=== PATIENT | female | born 1950 | race Caucasian/White ===

== ENCOUNTER → 2016-03-20 | Outpatient (CLI) | payer MEDICARE ==
[2016-03-20 12:12] VITALS: BP 133/85; PULSE 52; RESP 20; TEMP 98
[2016-03-20 12:54] VITALS: BMI 30.3
--- NOTE | 2016-03-30 15:14 | P.PN ---
Progress Note - Text DATE OF SERVICE: 03/20/2016 CHIEF COMPLAINT: Followup gastric bypass. HISTORY OF PRESENT ILLNESS: Eboni Otoole is a 65-year-old female who is status post Susana-en-Y gastric bypass on April 24, 2014. Her highest weight was 323 pounds. Her present weight is her lowest weight at 205 pounds. She has actually lost 118 pounds in 2 years ago. Percent excess weight loss is 76%. Body mass index has been reduced from 48.5 to 30.8. Total BMI point reduction is 17.7. She is barely 37 pounds overweight. She does have a history of a perforated gastrojejunal ulcer a year ago, whereby she had emergent surgical intervention. Since then she has been on high doses of Carafate, including omeprazole. Separately she reports slowly weaning herself off her diabetic medications, whereby at times she may have lows. Her blood sugars have been maintained under 100. Now she presents for further evaluation and management. PAST MEDICAL HISTORY: 1. Morbid obesity. 2. Diabetes type 2. 3. Gastroesophageal reflux disease. 4. Hypertension. 5. Dyslipidemia. 6. Osteoarthritis. 7. Panniculitis. 8. Diverticulosis 9. Perforated gastrojejunal ulcer with exploration. PAST SURGICAL HISTORY: 1. Colonoscopy. 2. Left knee replacement. 3. . 4. Upper endoscopy with balloon dilatation. 5. Status post Susana-en-Y gastric bypass. 6. Perforated gastrojejunal ulcer with open exploration. MEDICATIONS: 1. Zinc. 2. Vitamin D. 3. Calcium. 4. Prilosec. 5. Multivitamin. 6. Metoprolol. 7. HydroDIURIL. 8. Repaglinide. 9. Carafate. 10. Zocor. 11. Levemir. ALLERGIES: Denies. SOCIAL HISTORY: Lifelong nontobacco user. FAMILY HISTORY: Pertinent for colon cancer in an uncle. Denies any stomach or esophageal cancer. REVIEW OF SYSTEMS: ENDOCRINE: Resolved diabetes, type 2. She has actually been discontinuing her insulin slowly. RESPIRATORY: Resolved obstructive sleep apnea. GASTROINTESTINAL: No reports of gastroesophageal reflux disease or dumping syndrome. CONSTITUTIONAL: Heaviest weight of 323 pounds. Total percent excess weight loss of 58%. Present weight loss of 93 pounds. Body mass index reduced from 49 down to 34.5. BMI reduction of 14.5. CARDIOVASCULAR: Decreased blood pressure medications including dosage. MUSCULOSKELETAL: Moderate improvement of lower back, including bilateral knee pain. HEENT: Denies any troubles with vision or hearing. NEURO: No reports of seizure disorders or stroke. PSYCH: Denies any depression or suicidal ideation. HEMATOLOGIC: Denies any easy bruising or bleeding. PHYSICAL EXAM: VITAL SIGNS: 98.0, 52, 20, 133/85, 5 feet 8-1/2 inches, 205 pounds. Body mass index of 30.3. GENERAL: Well-developed female in no acute distress. ABDOMEN: No palpable incisional hernias. Soft, nontender, nondistended. MUSCULOSKELETAL: No clubbing, cyanosis or edema. HEENT: No sclera icterus. Extraocular movements grossly intact. Moist buccal mucosa. Head is atraumatic, normocephalic. Hears conversational speech. No nasal drainage. NECK: Supple without lymphadenopathy. No JV distention. CHEST: Non-labored respirations and equal bilateral excursions. CARDIOVASCULAR: Regular rate and rhythm. Palpable 2+ radial pulses. NEUROLOGIC: No focal or lateralizing signs. PSYCH: Appropriate affect. Alert and oriented to person, place and time. LABS: Previous labs demonstrate hemoglobin 12.5. Carbon dioxide was elevated at 35. Glucose was elevated at 108. Hemoglobin A1c has improved from 8.8 down to 5.6. Total iron-binding capacity was low at 264, ALT and AST were 45 and 63 elevated, respectively. Vitamin A was low at 36. Vitamin B12 was elevated at 936. Thyroid-stimulating hormones were within normal limits. ASSESSMENT: 1. Morbid obesity due to excess calories. 2. Body mass index reduced from 48.9 to 30.3. 3. Status post Susana-en-Y gastric bypass. 4. History of diabetes, type 2, now resolved. 5. History of obstructive sleep apnea, now resolved. 6. Previous history of gastroesophageal reflux disease, now resolved. 7. Hypertensive heart disease, improved. 8. Obstructive sleep apnea, improved. 9. Prior history of gastrojejunal stricture, resolved. 10. Osteoarthritis of the lower back, improved. 11. Osteoarthritis bilateral knees, improved. PLAN: 1. I have recommended repeat upper endoscopy, given the severity of her perforated gastrojejunal ulcer this will help to actually determine whether she needs to continue with her Carafate versus Nexium. 2. As she has had labs in the past 2 to 3 months, repeat labs were advised. 3. Her hemoglobin A1c has been exceptional, and she is still taking multiple diabetic medications with low blood sugars. I have recommended weaning or discontinuing these medications. This puts her at risk for hypoglycemic events. 4. She has previous history of vitamin A and D deficiency and has been placed on a new medication per her primary care provider. It will be interesting to see how her vitamin A also improves. 5. Recommend followup in approximately 3 to 4 weeks.
== END | disposition home or self-care (01) ==
LOC: BARWHC3 11:13
PROVIDERS: ATTEND Surgery Plastic and Reconstructive Surgery
DX: Z48.815 Encounter for surgical aftercare following surgery on the digestive system (principal); Z98.84 Bariatric surgery status; Z71.3 Dietary counseling and surveillance; Z79.899 Other long term (current) drug therapy; E66.01 Morbid (severe) obesity due to excess calories; Z68.30 Body mass index [BMI] 30.0-30.9, adult; I11.9 Hypertensive heart disease without heart failure; G47.33 Obstructive sleep apnea (adult) (pediatric); M47.896 Other spondylosis, lumbar region; M17.0 Bilateral primary osteoarthritis of knee; E21.1 Secondary hyperparathyroidism, not elsewhere classified; D50.8 Other iron deficiency anemias; E44.0 Moderate protein-calorie malnutrition; E55.9 Vitamin D deficiency, unspecified; K74.1 Hepatic sclerosis; N19 Unspecified kidney failure; K50.90 Crohn's disease, unspecified, without complications
CPT/HCPCS: 97803; G0463; 99211

== ENCOUNTER → 2016-04-03 | Outpatient (CLI) | payer MEDICARE ==
[2016-04-03 11:10] LABS: Partial Thromboplastin Time 23.5 sec (22.0-30.0); Prothrombin Time 10.5 sec (9.0-12.0)
[2016-04-03 11:13] LABS: Basophils % (A) 1 %; CH 30.2; CHCM 33.7; Eosinophils # (A) 0.1 k/uL (0-0.7); Eosinophils % (A) 2 %; HCT 41.1 % (34.0-46.0); HGB 13.3 gm/dL (11.4-16.0); Luc # (Auto) 0.13; Luc % (Auto) 3; Lymphocytes # (A) 1.3 k/uL (1.0-4.8); Lymphocytes % (A) 26 %; MCH 29.1 pg (25.0-35.0); MCHC 32.3 g/dL (31.0-37.0); MCV 89.9 fL (80.0-100.0); Mean Platelet Volume 6.7; Monocytes # (A) 0.3 k/uL (0-1.0); Monocytes % (A) 6 %; Neutrophils # (A) 3.1 k/uL (1.3-7.7); Neutrophils % (A) 63 %; RBC 4.57 m/uL (3.80-5.40); RDW 12.8 % (11.5-15.5); WBC 4.9 k/uL (3.8-10.6); WBC (Perox) 4.85
[2016-04-03 12:38] LABS: Appearance,Urine Clear (Clear); Bilirubin,Urine Negative (Negative); Glucose,Urine (UA) Negative (Negative); Ketones,Urine Negative (Negative); Leukocyte Esterase,Urine Negative (Negative); Nitrite,Urine Negative (Negative); PH, Urine 5.5 (5.0-8.0); Protein,Urine Negative (Negative); Specific Gravity,Urine 1.022 (1.001-1.035); UA Billing (MACRO vs. MICRO) CHEM; Urobilinogen,Urine <2.0 mg/dL (<2.0)
[2016-04-03 12:39] LABS: ALT 64 U/L (9-52); AST 45 U/L (14-36); Alkaline Phosphatase 86 U/L (38-126); Anion Gap 8 mmol/L; Blood Urea Nitrogen 20 mg/dL (7-17); Calcium 9.6 mg/dL (8.4-10.2); Carbon Dioxide 32 mmol/L (22-30); Chloride 103 mmol/L (98-107); Cholesterol 153 mg/dL (<200); Glucose 127 mg/dL (74-99); HDL Cholesterol 63 mg/dL (40-60); Iron 106 ug/dL (37-170); Non-African American GFR(MDRD) >60 (>60 ml/min/1.73 sqM); Phosphorous 4.4 mg/dL (2.5-4.5); Sodium 143 mmol/L (137-145); Total Bilirubin 0.8 mg/dL (0.2-1.3); Total Protein 6.6 g/dL (6.3-8.2); Triglycerides 82 mg/dL (<150)
[2016-04-03 12:50] LABS: % Iron Saturation 38.1 % (20-50); Prealbumin 22 mg/dL (18-36); Total Iron Binding Capacity 278 ug/dL (265-497)
[2016-04-03 13:56] LABS: Vitamin B12 >1000 pg/mL (239-931)
[2016-04-07 06:58] LABS: Methylmalonic Acid 0.14 umol/L (<0.40)
== END | disposition home or self-care (01) ==
LOC: LABWHC1 10:15
PROVIDERS: ATTEND Family Medicine
DX: E66.01 Morbid (severe) obesity due to excess calories (principal); E21.1 Secondary hyperparathyroidism, not elsewhere classified; D50.8 Other iron deficiency anemias; K90.89 Other intestinal malabsorption; E44.0 Moderate protein-calorie malnutrition; E55.9 Vitamin D deficiency, unspecified; K74.1 Hepatic sclerosis; N19 Unspecified kidney failure; K50.90 Crohn's disease, unspecified, without complications
CPT/HCPCS: 36415; 80053; 80061; 81003; 82043; 82306; 82525; 82607; 82728; 82746; 83036; 83540; 83550; 83735; 83921; 83970; 84100; 84134; 84255; 84425; 84439; 84443; 84590; 84630; 85025; 85610; 85730

== ENCOUNTER 2016-04-09 07:28 | Day surgery (SDC) | payer MEDICARE ==
[2016-04-04 10:37] VITALS: BMI 28.0
[~2016-04-09 07:28] MED LIST: LACTATED RINGERS 1,000 ML IV SCH
--- NOTE | 2016-04-09 07:40 | P.GSHP ---
History of Present Illness H&P Date: 04/09/16 CHIEF COMPLAINT: GERD HISTORY OF PRESENT ILLNESS: The patient is a 65-year-old female who presents reports gastroesophageal reflux disease. Upper endoscopy was offered for further evaluation and management. PAST MEDICAL HISTORY: Please see list. PAST SURGICAL HISTORY: Please see list. MEDICATIONS: Please see list. ALLERGIES: Please see list. SOCIAL HISTORY: No illicit drug use FAMILY HISTORY: No reports of Crohn disease or ulcerative colitis. REVIEW OF ORGAN SYSTEMS: CONSTITUTIONAL: No reports of fevers or chills. GI: Denies any blood in stools or constipation. PHYSICAL EXAM: VITAL SIGNS: Stable GENERAL: Well-developed and pleasant in no acute distress. HEENT: No scleral icterus. Extraocular movements grossly intact. Moist buccal mucosa. NECK: Supple without lymphadenopathy. CHEST: Unlabored respirations. Equal bilateral excursions. CARDIOVASCULAR: Regular rate and rhythm. Distal 2+ pulses. ABDOMEN: Soft, nondistended. MUSCULOSKELETAL: No clubbing, cyanosis, or edema. ASSESSMENT: 1. Gastroesophageal reflux disease PLAN: 1. Recommend proceeding with an upper endoscopy Past Medical History Past Medical History: GERD/Reflux, Hyperlipidemia, Hypertension, Osteoarthritis (OA) Additional Past Medical History / Comment(s): PREV HX OF SLEEP APNEA, NO LONGER NEEDS CPAP, PREVIOUS HX OF DIABETES, NO LONGER NEEDING MEDS R/T 140LB WT LOSS. HX OF ULCER History of Any Multi-Drug Resistant Organisms: None Reported Past Surgical History: Bariatric Surgery, Bowel Resection, Section, Cholecystectomy, Joint Replacement Additional Past Surgical History / Comment(s): Left knee replacement, EGD, BILATERAL CATARACT SURGERY, BREAST BX (PT UNSURE OF SIDE),3 PRCEIOUS-EN-Y, bowel resection 04/12/15, feeding tube replaced 04/13/15, G TUBE REMOVED Past Anesthesia/Blood Transfusion Reactions: No Reported Reaction Past Psychological History: No Psychological Hx Reported Smoking Status: Never smoker Past Alcohol Use History: None Reported Past Drug Use History: None Reported - Past Family History Mother Family Medical History: Cancer Father Family Medical History: Cancer Additional Family Medical History / Comment(s): PANCREATIC Medications and Allergies Home Medications Medication Instructions Recorded Confirmed Type Cholecalciferol [Vitamin D3] 10,000 unit PO DAILY 11/02/13 04/09/16 History Hydrochlorothiazide [Hydrodiuril] 25 mg PO DAILY 11/02/13 04/09/16 History Metoprolol Succinate [Toprol XL] 50 mg PO QAM 11/02/13 04/09/16 History Calcium Carbonate [Calcium] 18,000 mg PO DAILY 08/17/14 04/09/16 History Multivitamins, Thera [Multivitamin] 1 tab PO DAILY 08/17/14 04/09/16 History Vitamin A 10,000 unit PO DAILY 04/04/16 04/09/16 History Allergies Allergy/AdvReac Type Severity Reaction Status Date / Time No Known Allergies Allergy Verified 04/09/16 07:36
[2016-04-09] MEDS ORDERED: LIDOCAINE 1% 20 ML VIAL (10MG/ML) FOR IV START INTRADERMA ONE (07:44)
[2016-04-09 07:45] VITALS: TEMP 97.6
[2016-04-09] MEDS ORDERED: PROPOFOL 10 MG/ML 20 ML VIAL IV ONE (07:48)
[2016-04-09 07:58] LABS: Glucose,Whole Blood 98 mg/dL (75-99)
--- NOTE | 2016-04-09 07:59 | P.PCN ---
Date of Procedure: 04/09/16 Description of Procedure: PREOPERATIVE DIAGNOSIS: History of gastrojejunal ulcer with perforation. POSTOPERATIVE DIAGNOSIS: History of gastrojejunal ulcer with perforation. OPERATION: Esophagogastrojejunoscopy. SURGEON: Meagan Quintana MD ANESTHESIA: MAC. INDICATIONS: The patient is a 65-year-old female who has previous history of perforated gastrojejunal ulceration. She now presents for follow-up. Benefits and risks of the procedure were described. Informed consent was obtained. DESCRIPTION: The patient was brought into the endoscopy suite and laid in the left lateral decubitus position. After a timeout was confirmed, the procedure was initiated. An Olympus gastroscope was passed along the posterior oropharynx down to the distal esophagus where the squamocolumnar junction was unremarkable. The gastric pouch was entered. No gastric jejunal stricture ulcer was identified. The scope was advanced up to 60 cm from the incisors into the Susana limb. The gastric pouch was 3 cm in length. The GI tract was desufflated. The patient tolerated the procedure well. FINDINGS: Squamocolumnar junction unremarkable at 40 cm. No stricture encountered. No gastrojejunal ulceration encountered. Gastrojejunal anastomose 44 cm from the incisors. Gastric pouch 4 cm. RECOMMENDATIONS: May continue with current treatment with omeprazole only.
[2016-04-09 08:06] VITALS: RESP 16
[2016-04-09 08:18] VITALS: BP 112/71; PULSE 52
== END 2016-04-09 08:37 | disposition home or self-care (01) ==
LOC: ORWHC2ENDO 07:28
PROVIDERS: ATTEND Surgery Plastic and Reconstructive Surgery
DX: K21.9 Gastro-esophageal reflux disease without esophagitis (principal); I10 Essential (primary) hypertension; E78.5 Hyperlipidemia, unspecified; E11.9 Type 2 diabetes mellitus without complications; Z79.899 Other long term (current) drug therapy; Z87.11 Personal history of peptic ulcer disease; Z98.84 Bariatric surgery status; Z90.49 Acquired absence of other specified parts of digestive tract
CPT/HCPCS: 43235; J2704

== ENCOUNTER → 2016-04-30 | Outpatient (CLI) | payer MEDICARE ==
[2016-04-30 14:00] VITALS: BP 158/83; PULSE 59; TEMP 97.8; BMI 31.0
--- NOTE | 2016-06-04 16:48 | P.PN ---
Progress Note - Text DATE OF SERVICE: 04/30/2016 CHIEF COMPLAINT: Follow-up gastric bypass. HISTORY OF PRESENT ILLNESS: Eboni Otoole is a 65-year-old female status post Susana-en-Y gastric bypass 2 years ago on April 24, 2014. Her highest weight was 323 pounds. She is now down to 207 pounds. Her weight has been essentially unchanged in the past year. Percent excess weight loss is 73%. She has maintained 116-pound weight loss. Body mass index is reduced from 48.5 down to 31. Total BMI point reduction is 17.5. She is only 44 pounds overweight. She has done extremely well. Now she is off all medications related to her insulin-dependent diabetes. She still taking omeprazole for history of gastrojejunal ulcer with perforation over a year ago. She is now off Carafate. She reports moderate stress in her life at this time. PAST MEDICAL HISTORY: 1. Morbid obesity. 2. Insulin-dependent diabetes type 2, now resolved. 3. Gastroesophageal reflux disease. 4. Hypertension. 5. Dyslipidemia. 6. Osteoarthritis. 7. Panniculitis. 8. Diverticulosis 9. Perforated gastrojejunal ulcer with exploration. PAST SURGICAL HISTORY: 1. Colonoscopy. 2. Left knee replacement. 3. . 4. Upper endoscopy with balloon dilatation. 5. Status post Susana-en-Y gastric bypass. 6. Perforated gastrojejunal ulcer with open exploration. MEDICATIONS: 1. Zinc. 2. Vitamin A. 3. Zocor. 4. Omeprazole. 5. Multivitamin. 6. Toprol-XL. 7. HydroDIURIL. 8. Vitamin D. 9. Calcium. 10. Xanax. ALLERGIES: Denies. SOCIAL HISTORY: Lifelong nontobacco user. FAMILY HISTORY: Pertinent for colon cancer in an uncle. Denies any stomach or esophageal cancer. REVIEW OF SYSTEMS: ENDOCRINE: Complete resolution of insulin-dependent diabetes type 2. No reports of thyroid disorders. GASTROINTESTINAL: Previous perforated gastrojejunal ulcer. Now she is maintained on omeprazole only. RESPIRATORY: Resolved obstructive sleep apnea. CONSTITUTIONAL: . Her highest weight was 323 pounds. She is now down to 207 pounds. Her weight has been essentially unchanged in the past year. Percent excess weight loss is 73%. She has maintained 116-pound weight loss. Body mass index is reduced from 48.5 down to 31. Total BMI point reduction is 17.5. She is only 44 pounds overweight. CARDIOVASCULAR: Decreased blood pressure medications including dosage. MUSCULOSKELETAL: Moderate improvement of lower back, including bilateral knee pain. HEENT: Denies any troubles with vision or hearing. NEURO: No reports of seizure disorders or stroke. PSYCH: Denies any depression or suicidal ideation. HEMATOLOGIC: Denies any easy bruising or bleeding. PHYSICAL EXAM: VITAL SIGNS: 97.8, 59, 14, 158/83, 5 feet 8-1/2 inches, 207 pounds. Body mass index 31.0. Body mass index of 30.3. GENERAL: Well-developed female in no acute distress. ABDOMEN: No palpable incisional hernias. Soft, nontender, nondistended. MUSCULOSKELETAL: No clubbing, cyanosis or edema. HEENT: No sclera icterus. Extraocular movements grossly intact. Moist buccal mucosa. Head is atraumatic, normocephalic. Hears conversational speech. No nasal drainage. NECK: Supple without lymphadenopathy. No JV distention. CHEST: Non-labored respirations and equal bilateral excursions. CARDIOVASCULAR: Regular rate and rhythm. Palpable 2+ radial pulses. NEUROLOGIC: No focal or lateralizing signs. PSYCH: Appropriate affect. Alert and oriented to person, place and time. STUDIES: Upper endoscopy completed demonstrating no recurrent gastrojejunal ulcer. No stricture was encountered. Squamocolumnar junction was confirmed 40 cm. Gastric pouch 4 cm. ASSESSMENT: 1. Morbid obesity due to excess calories, now resolved. 2. Body mass index reduced from 48.5 down to 31. 3. Status post Susana-en-Y gastric bypass. 4. Insulin-dependent diabetes type 2, resolved. 5. History of obstructive sleep apnea, now resolved. 6. Previous history of gastroesophageal reflux disease, now resolved. 7. Hypertensive heart disease, improved. 8. Obstructive sleep apnea, improved. 9. Prior history of gastrojejunal stricture, resolved. 10. Osteoarthritis of the lower back, improved. 11. Osteoarthritis bilateral knees, improved. 12. Obesity, BMI 31. PLAN: 1. Overall, she has done well. In the past she was taking Carafate and omeprazole; however, she has been discontinued off Carafate for a month. She can be maintained on omeprazole 40 mg daily. 2. Her blood sugar glucose has been well controlled. Previous labs including hemoglobin A1c was within normal limits at 6. Again, she has discontinued her insulin. 3. She has moderate stress in her life which may induce stress eating, which was also discussed. 4. Overall, recommend a follow-up at least on [facility] basis [facility] or any time sooner should she have any problems with abdominal pain or weight gain.
== END | disposition home or self-care (01) ==
LOC: BARWHC3 13:21
PROVIDERS: ATTEND Surgery Plastic and Reconstructive Surgery
DX: Z48.815 Encounter for surgical aftercare following surgery on the digestive system (principal); E66.9 Obesity, unspecified; Z68.31 Body mass index [BMI] 31.0-31.9, adult; Z71.3 Dietary counseling and surveillance; I11.9 Hypertensive heart disease without heart failure; G47.33 Obstructive sleep apnea (adult) (pediatric); M47.896 Other spondylosis, lumbar region; M17.0 Bilateral primary osteoarthritis of knee; Z98.84 Bariatric surgery status; Z79.899 Other long term (current) drug therapy; Z96.652 Presence of left artificial knee joint; K21.9 Gastro-esophageal reflux disease without esophagitis
CPT/HCPCS: 97803; G0463; 99211

== ENCOUNTER → 2016-09-09 | Outpatient (CLI) | payer MEDICARE ==
[2016-09-09 11:32] LABS: Basophils % (A) 0 %; CHCM 34.4; Eosinophils # (A) 0.1 k/uL (0-0.7); Eosinophils % (A) 3 %; HDW 2.86; HGB 13.7 gm/dL (11.4-16.0); Luc % (Auto) 2; Lymphocytes # (A) 1.1 k/uL (1.0-4.8); Lymphocytes % (A) 25 %; MCHC 34.3 g/dL (31.0-37.0); MCV 87.4 fL (80.0-100.0); Monocytes # (A) 0.3 k/uL (0-1.0); Monocytes % (A) 7 %; Neutrophils # (A) 2.8 k/uL (1.3-7.7); Neutrophils % (A) 63 %; RBC 4.58 m/uL (3.80-5.40); RDW 12.6 % (11.5-15.5); WBC 4.4 k/uL (3.8-10.6); WBC (Perox) 4.67
[2016-09-09 11:56] LABS: ALT 38 U/L (9-52); AST 29 U/L (14-36); Alkaline Phosphatase 97 U/L (38-126); Anion Gap 9 mmol/L; Blood Urea Nitrogen 20 mg/dL (7-17); Calcium 9.5 mg/dL (8.4-10.2); Carbon Dioxide 31 mmol/L (22-30); Chloride 103 mmol/L (98-107); Glucose 144 mg/dL (74-99); Iron 124 ug/dL (37-170); Non-African American GFR(MDRD) >60 (>60 ml/min/1.73 sqM); Sodium 143 mmol/L (137-145); Total Bilirubin 0.9 mg/dL (0.2-1.3); Total Protein 6.3 g/dL (6.3-8.2)
[2016-09-09 12:07] LABS: % Iron Saturation 45.4 % (20-50); Prealbumin 21 mg/dL (18-36); Total Iron Binding Capacity 273 ug/dL (265-497)
[2016-09-09 12:43] LABS: Vitamin B12 980 pg/mL (239-931)
[2016-09-09 15:25] LABS: Hemoglobin A1C 6.6 % (4.2-6.1)
[2016-09-12 14:20] LABS: Selenium 152 mcg/L (63-160)
== END | disposition home or self-care (01) ==
LOC: LABWHC1 11:03
PROVIDERS: ATTEND Family Medicine
DX: D50.9 Iron deficiency anemia, unspecified (principal); E11.9 Type 2 diabetes mellitus without complications
CPT/HCPCS: 36415; 80053; 82306; 82607; 83036; 83540; 83550; 84134; 84255; 84439; 84443; 84590; 85025

== ENCOUNTER → 2017-01-05 | Outpatient (CLI) | payer MEDICARE ==
[2017-01-05 10:34] LABS: Basophils % (A) 1 %; CHCM 34.1; Eosinophils # (A) 0.1 k/uL (0-0.7); Eosinophils % (A) 3 %; HCT 39.9 % (34.0-46.0); HDW 2.85; HGB 13.2 gm/dL (11.4-16.0); Luc # (Auto) 0.13; Luc % (Auto) 3; Lymphocytes # (A) 1.1 k/uL (1.0-4.8); Lymphocytes % (A) 26 %; MCH 29.2 pg (25.0-35.0); MCHC 33.1 g/dL (31.0-37.0); MCV 88.3 fL (80.0-100.0); Mean Platelet Volume 6.7; Monocytes # (A) 0.3 k/uL (0-1.0); Monocytes % (A) 7 %; Neutrophils # (A) 2.6 k/uL (1.3-7.7); Neutrophils % (A) 60 %; RBC 4.51 m/uL (3.80-5.40); RDW 12.2 % (11.5-15.5); WBC 4.3 k/uL (3.8-10.6); WBC (Perox) 4.38
[2017-01-05 10:58] LABS: ALT 48 U/L (9-52); AST 34 U/L (14-36); Alkaline Phosphatase 99 U/L (38-126); Anion Gap 8 mmol/L; Blood Urea Nitrogen 19 mg/dL (7-17); Calcium 9.8 mg/dL (8.4-10.2); Carbon Dioxide 31 mmol/L (22-30); Chloride 103 mmol/L (98-107); Cholesterol 160 mg/dL (<200); Creatine Kinase 64 U/L (30-135); Glucose 154 mg/dL (74-99); HDL Cholesterol 63 mg/dL (40-60); Magnesium 1.9 mg/dL (1.6-2.3); Non-African American GFR(MDRD) >60 (>60 ml/min/1.73 sqM); Sodium 142 mmol/L (137-145); Total Bilirubin 0.8 mg/dL (0.2-1.3); Total Protein 6.7 g/dL (6.3-8.2)
[2017-01-05 18:50] LABS: Urine Creatinine 173.2 mg/dL
[2017-01-07 20:00] LABS: Selenium 136 mcg/L (63-160)
== END | disposition home or self-care (01) ==
LOC: LABWHC1 09:40
PROVIDERS: ATTEND Family Medicine
DX: E11.65 Type 2 diabetes mellitus with hyperglycemia (principal); E78.5 Hyperlipidemia, unspecified; I10 Essential (primary) hypertension; Z98.84 Bariatric surgery status
CPT/HCPCS: 36415; 80053; 80061; 82043; 82306; 82525; 82550; 82570; 82607; 83036; 83735; 84134; 84255; 84439; 84443; 84590; 85025

== ENCOUNTER → 2017-04-29 | Outpatient (CLI) | payer MEDICARE ==
[2017-04-29 14:37] VITALS: BP 137/76; PULSE 60; RESP 16; TEMP 97.9; BMI 32.6
[2017-04-29 15:55] LABS: HCT 37.3 % (34.0-46.0); HGB 13.1 gm/dL (11.4-16.0); MCH 30.2 pg (25.0-35.0); MCHC 35.2 g/dL (31.0-37.0); MCV 85.6 fL (80.0-100.0); Platelet Count 229 k/uL (150-450); RBC 4.35 m/uL (3.80-5.40); RDW 12.7 % (11.5-15.5); WBC 6.8 k/uL (3.8-10.6)
[2017-04-29 16:03] LABS: Partial Thromboplastin Time 22.4 sec (22.0-30.0)
[2017-04-29 16:05] LABS: Prothrombin Time 9.8 sec (9.0-12.0)
[2017-04-29 16:20] LABS: ALT 34 U/L (9-52); AST 30 U/L (14-36); Albumin 3.8 g/dL (3.5-5.0); Alkaline Phosphatase 108 U/L (38-126); Anion Gap 9 mmol/L; Blood Urea Nitrogen 19 mg/dL (7-17); Calcium 9.5 mg/dL (8.4-10.2); Carbon Dioxide 33 mmol/L (22-30); Chloride 99 mmol/L (98-107); Cholesterol 148 mg/dL (<200); Glucose 168 mg/dL (74-99); HDL Cholesterol 51 mg/dL (40-60); LDL Cholesterol,Calculated 70 mg/dL (0-99); Magnesium 2.2 mg/dL (1.6-2.3); Phosphorus 3.2 mg/dL (2.5-4.5); Potassium 3.8 mmol/L (3.5-5.1); Sodium 141 mmol/L (137-145); Total Bilirubin 0.6 mg/dL (0.2-1.3); Total Protein 6.7 g/dL (6.3-8.2); Triglycerides 135 mg/dL (<150)
[2017-04-30 01:42] LABS: Iron Saturation 13.85 (12.00-45.00)
[2017-04-30 01:54] LABS: Vitamin D 25 Hydroxy 46.2 ng/mL (30.0-100.0)
[2017-04-30 02:14] LABS: Hemoglobin A1C 7.6 % (4.0-6.0)
[2017-04-30 02:26] LABS: Folate, Serum >24.0 ng/mL; Vitamin B12 >4000.0 pg/mL (211-911)
[2017-04-30 02:31] LABS: Parathyroid Hormone Intact 101.5 pg/mL (14.0-72.0)
[2017-04-30 16:21] LABS: Zinc, Serum 75 ug/dL (60-130)
[2017-05-01 00:55] LABS: Vitamin B1 68 ug/L (38-122)
[2017-05-01 08:41] LABS: Vitamin A 29 ug/dL (38-106)
[2017-05-02 23:23] LABS: Selenium 138 mcg/L (63-160)
--- NOTE | 2017-06-11 19:10 | P.PN ---
Subjective Progress Note Date: 04/29/17 DATE OF SERVICE: 04/29/2017 CHIEF COMPLAINT: Follow-up gastric bypass. HISTORY OF PRESENT ILLNESS: Eboni Otoole is a 65-year-old female status post Susana-en-Y gastric bypass April 24, 2014. She is 3 years out. Her highest weight was 323 pounds. She is now down to 218 pounds. She has gained 11 pounds in 1 year since her last visit. Percent excess weight loss is 66 %. She has maintained 105-pound weight loss. Body mass index is reduced from 48.5 down to 32.7. Percent excess weight loss is 66% . She is 55 pounds overweight. She reports her weight gain is secondary to multiple social stressors including the recent of her [id number]. She also reports that her father in law . She had been started on Lexapro including Effexor by her primary care provider. She reports illness from her grandchildren. Now she presents for further evaluation and management. No reports of abdominal pain. No reports of nausea or vomiting or dumping syndrome. PAST MEDICAL HISTORY: 1. Morbid obesity. 2. Insulin-dependent diabetes type 2, now resolved. 3. Gastroesophageal reflux disease. 4. Hypertension. 5. Dyslipidemia. 6. Osteoarthritis. 7. Panniculitis. 8. Diverticulosis 9. Perforated gastrojejunal ulcer with exploration. PAST SURGICAL HISTORY: 1. Colonoscopy. 2. Left knee replacement. 3. . 4. Upper endoscopy with balloon dilatation. 5. Status post Susana-en-Y gastric bypass. 6. Perforated gastrojejunal ulcer with open exploration. MEDICATIONS: 1. Zinc. 2. Vitamin A. 3. Zocor. 4. Omeprazole. 5. Multivitamin. 6. Toprol-XL. 7. HydroDIURIL. 8. Vitamin D. 9. Calcium. 10. Xanax. 11. Effexor 12. Lexapro ALLERGIES: Denies. SOCIAL HISTORY: Lifelong nontobacco user. FAMILY HISTORY: Pertinent for colon cancer in an uncle. Denies any stomach or esophageal cancer. REVIEW OF SYSTEMS: ENDOCRINE: Complete resolution of insulin-dependent diabetes type 2. No reports of thyroid disorders. GASTROINTESTINAL: Previous perforated gastrojejunal ulcer. esophageal reflux disease. RESPIRATORY: Resolved obstructive sleep apnea. No pneumonias. CONSTITUTIONAL: Her highest weight was 323 pounds. She is now down to 218 pounds. She has gained 11 pounds in 1 year since her last visit. Percent excess weight loss is 66 %. She has maintained 105-pound weight loss. Body mass index is reduced from 48.5 down to 32.7. Percent excess weight loss is 66% . She is 55 pounds overweight. CARDIOVASCULAR: Hypertension well controlled. No palpitations. MUSCULOSKELETAL: Moderate improvement of lower back, including bilateral knee pain. HEENT: Denies any troubles with vision or hearing. NEURO: No reports of seizure disorders or stroke. PSYCH: Denies any depression or suicidal ideation. HEMATOLOGIC: Denies any easy bruising or bleeding. SKIN: No skin cancer or rash. PHYSICAL EXAM: VITAL SIGNS: 5 feet 8-1/2 inches, 218 pounds. Body mass index 32.7. Vital Signs Temp 97.9 F 04/29/17 14:34 Pulse 60 04/29/17 14:34 Resp 16 04/29/17 14:34 BP 137/76 04/29/17 14:34 Pulse Ox GENERAL: Well-developed female in no acute distress. ABDOMEN: No palpable incisional hernias. Soft, nontender, nondistended. MUSCULOSKELETAL: No clubbing, cyanosis or edema. HEENT: No sclera icterus. Extraocular movements grossly intact. Moist buccal mucosa. Head is atraumatic, normocephalic. Hears conversational speech. No nasal drainage. NECK: Supple without lymphadenopathy. No JV distention. CHEST: Non-labored respirations and equal bilateral excursions. CARDIOVASCULAR: Regular rate and rhythm. Palpable 2+ radial pulses. NEUROLOGIC: No focal or lateralizing signs. Cranial nerves II through XII grossly intact. PSYCH: Appropriate affect. Alert and oriented to person, place and time. SKIN: Well perfused. Good skin turgor. ASSESSMENT: 1. Morbid obesity due to excess calories, now resolved. 2. Body mass index reduced from 48.5 down to 32.7. 3. Status post Susana-en-Y gastric bypass. 4. Insulin-dependent diabetes type 2, resolved. 5. History of obstructive sleep apnea, now resolved. 6. Previous history of gastroesophageal reflux disease, now resolved. 7. Hypertensive heart disease, improved. 8. Obstructive sleep apnea, improved. 9. Prior history of gastrojejunal stricture, resolved. 10. Osteoarthritis of the lower back, improved. 11. Osteoarthritis bilateral knees, improved. 12. Depressive disorder PLAN: 1. I reviewed with her that potential weight gain of 25 pounds from her lowest may occur within the first 5 years following her operation. 2. However, she has been placed on antidepressants including Effexor and Lexapro which may propagate increased appetite as well as weight gain. 3. Recommend bariatric metabolic panel. 4. Recommended food diary journal to follow carbohydrate intake as well as protein intake 5. Minimal follow-up yearly. LABS: Laboratory Last Values WBC 6.8 k/uL (3.8-10.6) 04/29/17 15:12 RBC 4.35 m/uL (3.80-5.40) 04/29/17 15:12 Hgb 13.1 gm/dL (11.4-16.0) 04/29/17 15:12 Hct 37.3 % (34.0-46.0) 04/29/17 15:12 MCV 85.6 fL (80.0-100.0) 04/29/17 15:12 MCH 30.2 pg (25.0-35.0) 04/29/17 15:12 MCHC 35.2 g/dL (31.0-37.0) 04/29/17 15:12 RDW 12.7 % (11.5-15.5) 04/29/17 15:12 Plt Count 229 k/uL (150-450) 04/29/17 15:12 PT 9.8 sec (9.0-12.0) 04/29/17 15:12 INR 1.0 (<1.2) 04/29/17 15:12 APTT 22.4 sec (22.0-30.0) 04/29/17 15:12 Sodium 141 mmol/L (137-145) 04/29/17 15:12 Potassium 3.8 mmol/L (3.5-5.1) 04/29/17 15:12 Chloride 99 mmol/L (98-107) 04/29/17 15:12 Carbon Dioxide 33 mmol/L (22-30) H 04/29/17 15:12 Anion Gap 9 mmol/L 04/29/17 15:12 BUN 19 mg/dL (7-17) H 04/29/17 15:12 Creatinine 0.70 mg/dL (0.52-1.04) 04/29/17 15:12 Est GFR (CKD-EPI)AfAm >90 (>60 ml/min/1.73 sqM) 04/29/17 15:12 Est GFR (CKD-EPI)NonAf >90 (>60 ml/min/1.73 sqM) 04/29/17 15:12 Glucose 168 mg/dL (74-99) H 04/29/17 15:[address] Glu mg/dL 171 04/29/17 15:12 Hemoglobin A1c 7.6 % (4.0-6.0) H 04/29/17 15:12 Calcium 9.5 mg/dL (8.4-10.2) 04/29/17 15:12 Phosphorus 3.2 mg/dL (2.5-4.5) 04/29/17 15:12 Magnesium 2.2 mg/dL (1.6-2.3) 04/29/17 15:12 Iron 36 ug/dL (50-170) L 04/29/17 15:12 TIBC 260 ug/dL (228-460) 04/29/17 15:12 Iron Saturation 13.85 (12.00-45.00) 04/29/17 15:12 Ferritin 293.3 ng/mL (10.0-291.0) H 04/29/17 15:12 Total Bilirubin 0.6 mg/dL (0.2-1.3) 04/29/17 15:12 AST 30 U/L (14-36) 04/29/17 15:12 ALT 34 U/L (9-52) 04/29/17 15:12 Alkaline Phosphatase 108 U/L (38-126) 04/29/17 15:12 Total Protein 6.7 g/dL (6.3-8.2) 04/29/17 15:12 Albumin 3.8 g/dL (3.5-5.0) 04/29/17 15:12 Prealbumin 11.0 mg/dL (18.0-42.0) L 04/29/17 15:12 Triglycerides 135 mg/dL (<150) 04/29/17 15:12 Cholesterol 148 mg/dL (<200) 04/29/17 15:12 LDL Cholesterol, Calc 70 mg/dL (0-99) 04/29/17 15:12 HDL Cholesterol 51 mg/dL (40-60) 04/29/17 15:12 Vitamin A 29 ug/dL (38-106) L 04/29/17 15:12 Vitamin B1 68 ug/L (38-122) 04/29/17 15:12 Vitamin B12 >4000.0 pg/mL (211-911) H 04/29/17 15:12 Vitamin D 25-Hydroxy 46.2 ng/mL (30.0-100.0) 04/29/17 15:12 Folate >24.0 ng/mL 04/29/17 15:12 TSH 0.090 mIU/L (0.465-4.680) L 04/29/17 15:12 PTH Intact 101.5 pg/mL (14.0-72.0) H 04/29/17 15:12 Copper 1261 ug/L (810-1990) 04/29/17 15:12 Selenium 138 mcg/L (63-160) 04/29/17 15:12 Zinc 75 ug/dL (60-130) 04/29/17 15:12 Iron is low Hemoglobin A1c reduced to 7.6% Prealbumin is low Vitamin A is low TSH suppressed PTH elevated Recommend iron supplement. Recommend increased protein intake over 75 g. Increased vitamin A supplement. Repeat thyroid panel. Increase calcium intake 1500 mg daily. Objective - Vital Signs Vital signs: Vital Signs Temp 97.9 F 04/29/17 14:34 Pulse 60 04/29/17 14:34 Resp 16 04/29/17 14:34 BP 137/76 04/29/17 14:34 Pulse Ox Intake & Output 04/28/17 04/29/17 04/29/17 18:59 06:59 18:59 Weight 98.883 kg - Labs CBC & Chem 7: 04/29/17 15:12 04/29/17 15:12
== END | disposition home or self-care (01) ==
LOC: BARWHC3 13:01
PROVIDERS: ATTEND Surgery Plastic and Reconstructive Surgery
DX: Z09 Encounter for follow-up examination after completed treatment for conditions other than malignant neoplasm (principal); I11.9 Hypertensive heart disease without heart failure; I50.9 Heart failure, unspecified; G47.33 Obstructive sleep apnea (adult) (pediatric); M19.90 Unspecified osteoarthritis, unspecified site; M17.0 Bilateral primary osteoarthritis of knee; E53.8 Deficiency of other specified B group vitamins; F32.9 Major depressive disorder, single episode, unspecified; Z98.84 Bariatric surgery status; Z79.899 Other long term (current) drug therapy
CPT/HCPCS: 84255; 84134; 84425; 80061; 80053; 82607; 82728; 82525; 82746; 83540; 83550; 83735; 84100; 84443; 84590; 84630; 85027; 85610; 85730; 82306; 83970; 83036; 36415; G0463; 99211

== ENCOUNTER → 2017-11-13 | Outpatient (CLI) | payer MEDICARE ==
[2017-11-13 08:31] LABS: Basophils % (A) 0 %; Eosinophils # (A) 0.2 k/uL (0-0.7); Eosinophils % (A) 4 %; HCT 39.1 % (34.0-46.0); HGB 12.9 gm/dL (11.4-16.0); Lymphocytes # (A) 1.3 k/uL (1.0-4.8); Lymphocytes % (A) 24 %; MCH 29.7 pg (25.0-35.0); MCV 90.1 fL (80.0-100.0); Mean Platelet Volume 6.5; Monocytes # (A) 0.3 k/uL (0-1.0); Monocytes % (A) 6 %; Neutrophils # (A) 3.5 k/uL (1.3-7.7); Neutrophils % (A) 64 %; Platelet Count 229 k/uL (150-450); RBC 4.34 m/uL (3.80-5.40); RDW 12.9 % (11.5-15.5); WBC 5.5 k/uL (3.8-10.6)
[2017-11-13 08:48] LABS: INR 1.1 (<1.2); Prothrombin Time 10.4 sec (9.0-12.0)
[2017-11-13 09:03] LABS: ALT 29 U/L (9-52); AST 32 U/L (14-36); Alkaline Phosphatase 96 U/L (38-126); Anion Gap 7 mmol/L; Blood Urea Nitrogen 20 mg/dL (7-17); Calcium 9.3 mg/dL (8.4-10.2); Carbon Dioxide 30 mmol/L (22-30); Chloride 105 mmol/L (98-107); Cholesterol 166 mg/dL (<200); Glucose 173 mg/dL (74-99); HDL Cholesterol 58 mg/dL (40-60); LDL Cholesterol,Calculated 85 mg/dL (0-99); Potassium 3.9 mmol/L (3.5-5.1); Sodium 142 mmol/L (137-145); Total Bilirubin 0.7 mg/dL (0.2-1.3); Total Protein 6.7 g/dL (6.3-8.2); Triglycerides 114 mg/dL (<150)
[2017-11-13 09:09] LABS: T4, Free (Free Thyroxine) 1.15 ng/dL (0.78-2.19)
[2017-11-13 09:10] LABS: Appearance,Urine Clear (Clear); Bilirubin,Urine Negative (Negative); Blood,Urine Negative (Negative); Color,Urine Yellow; Glucose,Urine (UA) 1+ (Negative); Ketones,Urine Negative (Negative); Leukocyte Esterase,Urine Negative (Negative); Nitrite,Urine Negative (Negative); Protein,Urine Negative (Negative); Specific Gravity,Urine 1.022 (1.001-1.035); Urobilinogen,Urine <2.0 mg/dL (<2.0)
[2017-11-13 16:53] LABS: Iron Saturation 23.13 (12.00-45.00)
[2017-11-13 18:13] LABS: Vitamin B12 >4000.0 pg/mL (211-911)
== END | disposition home or self-care (01) ==
LOC: LABWHC1 07:35
PROVIDERS: ATTEND Family Medicine
DX: E11.65 Type 2 diabetes mellitus with hyperglycemia (principal); I10 Essential (primary) hypertension; E78.5 Hyperlipidemia, unspecified
CPT/HCPCS: 36415; 80053; 80061; 81003; 82043; 82306; 82570; 82607; 82728; 83036; 83540; 83550; 83735; 84439; 84443; 85025; 85610

== ENCOUNTER → 2017-11-17 | Outpatient (CLI) | payer MEDICARE ==
--- NOTE | 2017-11-17 15:01 | BD ---
EXAMINATION TYPE: Axial Bone Density DATE OF EXAM: 11/17/2017 COMPARISON: NONE CLINICAL HISTORY: 67 YR OLD FEMALE....ICD-10 CODE: Z78.0 POST MANOPAUSAL W/O HRT, M89.9 DISORDER OF BONE Height: 67 Weight: 215 FRAX RISK QUESTIONS: NOTHING TO NOTE HERE RISK FACTORS HISTORY OF: Diet low in dairy products/other sources of calcium: NO Postmenopausal woman: YES AT 55 YRS OLD Lost more than 2 inches in height since high school: YES MEDICATIONS: Additional Medications: BP MED, EFFEXOR, ORAL DIABETIC MEDS, REFLUX MEDS, STATINS FOR CHOLESTEROL, T D AND CALCIUM Additional History: DIABETIC, GASTRIC BY-PASS, HYPERTENSION EXAM MEASUREMENTS: Bone mineral densitometry was performed using the [employer] System. Bone mineral density as measured about the Lumbar spine is: ----- L1-L4(G/cm2): 1.492 T Score Values are as follows: ----- L1: -0.2 ----- L2: 1.9 ----- L3: 3.4 ----- L4: 4.3 ----- L1-L4: 2.6 Bone mineral density BASELINE STUDY Bone mineral density about the R hip (g/cm2): 1.059 Bone mineral density about the L hip (g/cm2): 1.004 T Score values are as follows: -----R Neck: 0.4 -----L Neck: 0.0 -----R Total: 0.4 -----L Total: 0.0 Bone mineral density THIS IS HER FIRST BONE DENSITY TEST......BASELINE STUDY FRAX%s: THERE IS A 6.5% CHANCE FOR A MAJOR OSTEOPOROTIC FX AND A 0.2% FOR HIP FX......PROBABILITY OF FX IN 10 YRS TIME IMPRESSION: Normal (Values between +1 and -1 indicate normal bone mass). Consider repeating this study in 5 year s or sooner if there is some new clinical indication. NOTE: T-SCORE=SD OF THE YOUNG ADULT MEAN.
--- NOTE | 2017-11-19 08:24 | MM ---
Reason for exam: screening (asymptomatic). Last mammogram was performed 2 years and 2 months ago. History: Patient is postmenopausal. 2 core biopsies of the right breast. Physical Findings: A clinical breast exam by your physician is recommended on an annual basis and results should be correlated with mammographic findings. MG 3D Screening Mammo W/Cad Bilateral CC and MLO view(s) were taken. XCCL view(s) were taken of the left breast. Prior study comparison: September 27, 2015, bilateral MG screening mammo w CAD. August 17, 2014, bilateral MG screening mammo w CAD. The breast tissue is heterogeneously dense. This may lower the sensitivity of mammography. Numerous benign oil cysts. Stable distortion 11-12 o'clock right breast likely from prior excision. Asymmetric density posterior superior right MLO view does not persist on the MLO view. No significant changes when compared with prior studies. ASSESSMENT: Benign, BI-RAD 2 RECOMMENDATION: Routine screening mammogram of both breasts in 1 year.
== END | disposition home or self-care (01) ==
LOC: RADBDWWP 12:35
PROVIDERS: ATTEND Family Medicine
DX: Z12.31 Encounter for screening mammogram for malignant neoplasm of breast (principal); M89.9 Disorder of bone, unspecified; Z78.0 Asymptomatic menopausal state
CPT/HCPCS: 77063; 77067; 77080

== ENCOUNTER → 2017-12-15 | Outpatient (CLI) | payer MEDICARE ==
--- NOTE | 2017-12-16 11:03 | XR ---
EXAMINATION TYPE: XR hand complete LT DATE OF EXAM: 12/15/2017 COMPARISON: NONE HISTORY: Pain TECHNIQUE: Three views are submitted. FINDINGS: The osseous structures are intact. There is arthropathy of the first carpal metacarpal joint. Arthrop athy of the DIP and PIP and MCP joints. Chronic appearing deformity of the lunate bone. There is no a cute fracture or dislocation. IMPRESSION: 1. No definite acute fracture or dislocation if symptoms persist, follow-up study in 7 to 10 days wo uld be suggested. 2. Severe arthropathy first carpal metacarpal joint.
== END ==
LOC: RADXRMAIN 17:23
PROVIDERS: ATTEND Nurse Practitioner Family
DX: M19.042 Primary osteoarthritis, left hand (principal)

== ENCOUNTER → 2018-03-09 | Outpatient (CLI) | payer MEDICARE ==
[2018-03-09 10:24] LABS: Basophils % (A) 1 %; Eosinophils # (A) 0.1 k/uL (0-0.7); Eosinophils % (A) 3 %; HCT 40.2 % (34.0-46.0); Lymphocytes # (A) 1.3 k/uL (1.0-4.8); Lymphocytes % (A) 27 %; MCH 28.8 pg (25.0-35.0); MCHC 32.4 g/dL (31.0-37.0); MCV 88.9 fL (80.0-100.0); Mean Platelet Volume 6.3; Monocytes # (A) 0.3 k/uL (0-1.0); Monocytes % (A) 6 %; Neutrophils # (A) 2.9 k/uL (1.3-7.7); Neutrophils % (A) 61 %; Platelet Count 256 k/uL (150-450); RBC 4.52 m/uL (3.80-5.40); RDW 12.9 % (11.5-15.5); WBC 4.7 k/uL (3.8-10.6)
[2018-03-09 15:33] LABS: Erythrocyte Sedimentation Rate 8 mm/hr (0-20)
[2018-03-09 17:23] LABS: Cyclic Citrullinated Pep IgG NEGATIVE (NEGATIVE)
[2018-03-09 17:54] LABS: ALT 55 U/L (8-44); AST 45 U/L (13-35); Alkaline Phosphatase 115 U/L (41-126); C Reactive Protein <0.4 mg/dL (0.0-0.8); Carbon Dioxide 30.1 mmol/L (21.6-31.8); Chloride 104 mmol/L (96-109); Cholesterol 147 mg/dL (0-200); Creatine Kinase 90 U/L (26-186); Glucose 184 mg/dL (70-110); LDL Cholesterol,Calculated 68.8 mg/dL (0.0-131.0); Potassium 3.9 mmol/L (3.5-5.5); Sodium 143 mmol/L (135-145); Total Bilirubin 0.7 mg/dL (0.3-1.2); Total Protein 6.2 g/dL (6.2-8.2); Uric Acid 4.8 mg/dL (2.9-7.7)
[2018-03-09 18:54] LABS: Hemoglobin A1C 7.8 % (4.0-6.0)
[2018-03-10 12:28] LABS: Zinc, Serum 91 ug/dL (60-130)
[2018-03-11 08:24] LABS: Vitamin A 43 ug/dL (38-106)
== END | disposition home or self-care (01) ==
LOC: LABWHC1 09:42
PROVIDERS: ATTEND Family Medicine
DX: E11.65 Type 2 diabetes mellitus with hyperglycemia (principal); E78.5 Hyperlipidemia, unspecified
CPT/HCPCS: 36415; 80053; 80061; 82043; 82550; 82570; 82607; 83036; 84134; 84255; 84439; 84443; 84550; 84590; 84630; 85025; 85652; 86038; 86140; 86200

== ENCOUNTER → 2018-07-03 | Outpatient (CLI) | payer MEDICARE ==
[2018-07-03 10:38] LABS: Basophils % (A) 1 %; Eosinophils # (A) 0.1 k/uL (0-0.7); Eosinophils % (A) 2 %; HCT 39.6 % (34.0-46.0); HGB 12.8 gm/dL (11.4-16.0); Lymphocytes # (A) 1.2 k/uL (1.0-4.8); Lymphocytes % (A) 27 %; MCH 28.9 pg (25.0-35.0); MCHC 32.3 g/dL (31.0-37.0); MCV 89.5 fL (80.0-100.0); Mean Platelet Volume 7.2; Monocytes # (A) 0.4 k/uL (0-1.0); Monocytes % (A) 8 %; Neutrophils # (A) 2.7 k/uL (1.3-7.7); Neutrophils % (A) 59 %; Platelet Count 253 k/uL (150-450); RBC 4.42 m/uL (3.80-5.40); RDW 13.4 % (11.5-15.5); WBC 4.6 k/uL (3.8-10.6)
[2018-07-03 10:50] LABS: Appearance,Urine Cloudy (Clear); Bilirubin,Urine Negative (Negative); Blood,Urine Negative (Negative); Color,Urine Yellow; Glucose,Urine (UA) 1+ (Negative); Ketones,Urine Negative (Negative); Leukocyte Esterase,Urine Trace (Negative); Mucus,Urine Occasional /hpf; Nitrite,Urine Negative (Negative); Protein,Urine Trace (Negative); RBC,Urine 1 /hpf (0-5); Specific Gravity,Urine 1.034 (1.001-1.035); Squamous Epithelial Cell,Urine 19 /hpf (0-4); Urobilinogen,Urine <2.0 mg/dL (<2.0); WBC,Urine 2 /hpf (0-5)
[2018-07-03 17:42] LABS: Albumin/Globulin Ratio 2.11 (1.60-3.17); Anion Gap 7.8 mmol/L (4.00-12.00); Calcium 9.1 mg/dL (8.7-10.3); Carbon Dioxide 29.2 mmol/L (21.6-31.8); Globulin 1.9 g/dL (1.6-3.3); Magnesium 1.9 mg/dL (1.5-2.4); Potassium 3.7 mmol/L (3.5-5.5); Total Bilirubin 0.9 mg/dL (0.3-1.2); Total Protein 5.9 g/dL (6.2-8.2)
[2018-07-03 17:47] LABS: Vitamin D 25 Hydroxy 48.3 ng/mL (30.0-100.0)
[2018-07-03 17:49] LABS: T4, Free (Free Thyroxine) 1.2 ng/dL (0.80-1.80)
[2018-07-03 20:27] LABS: Hemoglobin A1C 9.2 % (4.0-6.0)
[2018-07-05 14:08] LABS: Vitamin A 44 ug/dL (38-106)
[2018-07-06 06:15] LABS: Zinc, Serum 78 ug/dL (60-130)
== END | disposition home or self-care (01) ==
LOC: LABWHC1 08:57
PROVIDERS: ATTEND Family Medicine
DX: Z00.00 Encounter for general adult medical examination without abnormal findings (principal); E78.5 Hyperlipidemia, unspecified; E11.65 Type 2 diabetes mellitus with hyperglycemia
CPT/HCPCS: 36415; 80053; 80061; 81001; 82306; 82607; 83036; 83735; 84425; 84439; 84443; 84590; 84630; 85025

== ENCOUNTER → 2018-07-07 | Outpatient (CLI) | payer MEDICARE ==
[2018-07-07 13:33] VITALS: BP 166/79; PULSE 58; RESP 16; TEMP 98.6; BMI 32.6
--- NOTE | 2018-07-07 13:33 | P.PN ---
Subjective Progress Note Date: 07/07/18 HPI: She is over 4 years out. Her weight is unchanged. She takes a tablet for her diabetes. No reports of dumping syndrome or reflux. She reports leg cramps. ABDOMEN: No hernia SKIN: Has probe for checking blood sugars on left upper arm ASSESSMENT: 1. Status post gastric bypass 2. Diabetes type 2 PLAN: 1. She is 1 year out 2. Getting potassium rich foods for cramping 3. Follow up in 1 year 4. Magnesium and Potassium supplement advised
== END ==
LOC: BARWHC3 12:45
PROVIDERS: ATTEND Surgery Plastic and Reconstructive Surgery
DX: Z48.815 Encounter for surgical aftercare following surgery on the digestive system (principal); E11.9 Type 2 diabetes mellitus without complications; R25.2 Cramp and spasm
CPT/HCPCS: 99211

== ENCOUNTER → 2018-10-01 | Outpatient (CLI) | payer MEDICARE ==
[2018-10-01 12:43] LABS: Basophils % (A) 0 %; Eosinophils # (A) 0.1 k/uL (0-0.7); Eosinophils % (A) 2 %; HCT 39.3 % (34.0-46.0); Lymphocytes # (A) 1.2 k/uL (1.0-4.8); Lymphocytes % (A) 25 %; MCH 29.8 pg (25.0-35.0); MCHC 33.1 g/dL (31.0-37.0); MCV 90.1 fL (80.0-100.0); Mean Platelet Volume 6.8; Monocytes # (A) 0.3 k/uL (0-1.0); Monocytes % (A) 6 %; Neutrophils # (A) 3.1 k/uL (1.3-7.7); Neutrophils % (A) 65 %; Platelet Count 240 k/uL (150-450); RBC 4.36 m/uL (3.80-5.40); RDW 13.1 % (11.5-15.5); WBC 4.8 k/uL (3.8-10.6)
[2018-10-01 18:58] LABS: Iron Saturation 41.41 (12.00-45.00)
[2018-10-01 19:01] LABS: African American GFR (CKD) 88.4 (60.0-200.0); Albumin 3.9 g/dL (3.80-4.90); Albumin/Globulin Ratio 1.95 (1.60-3.17); Anion Gap 9.2 mmol/L (4.00-12.00); BUN/Creat Ratio 22.5 Ratio (12.00-20.00); Carbon Dioxide 29.8 mmol/L (21.6-31.8); LDL Cholesterol,Calculated 80.4 mg/dL (0.0-131.0); Magnesium 1.9 mg/dL (1.5-2.4); Potassium 3.5 mmol/L (3.5-5.5); Total Bilirubin 0.9 mg/dL (0.3-1.2); Total Protein 5.9 g/dL (6.2-8.2); VLDL Calculation 17.6 mg/dL (5.00-40.00)
[2018-10-01 19:08] LABS: T4, Free (Free Thyroxine) 1.1 ng/dL (0.80-1.80)
[2018-10-01 21:38] LABS: Hemoglobin A1C 8.6 % (4.0-6.0)
== END ==
LOC: LABWHC1 11:55
PROVIDERS: ATTEND Family Medicine
DX: I10 Essential (primary) hypertension (principal); E78.5 Hyperlipidemia, unspecified; G47.62 Sleep related leg cramps; E11.65 Type 2 diabetes mellitus with hyperglycemia
CPT/HCPCS: 36415; 80053; 80061; 82043; 82550; 82570; 83036; 83540; 83550; 83735; 84439; 84443; 85025

== ENCOUNTER → 2018-11-03 | Outpatient (CLI) | payer MEDICARE ==
--- NOTE | 2018-11-03 16:21 | XR ---
Sacrum and coccyx HISTORY: Fall one month prior, trauma and pain 3 views of the sacrum and coccyx Degenerative disc changes, facet arthropathy noted at the lower lumbar spine. Bone mineralization and alignment are maintained. Vascular calcifications noted within the pelvis. IMPRESSION: No fracture or dislocation is evident. Degenerative disc disease and facet arthropathy. B one scan or MRI could BE performed for better evaluation as indicated.
== END | disposition home or self-care (01) ==
LOC: RADXRMAIN 11:46
PROVIDERS: ATTEND Family Medicine
DX: M53.3 Sacrococcygeal disorders, not elsewhere classified (principal); M46.98 Unspecified inflammatory spondylopathy, sacral and sacrococcygeal region
CPT/HCPCS: 72220

== ENCOUNTER → 2018-12-27 | Outpatient (CLI) | payer MEDICARE ==
[2018-12-27 12:12] LABS: Basophils % (A) 0 %; Eosinophils # (A) 0.2 k/uL (0-0.7); Eosinophils % (A) 3 %; HCT 39.5 % (34.0-46.0); HGB 13.1 gm/dL (11.4-16.0); Lymphocytes # (A) 0.9 k/uL (1.0-4.8); Lymphocytes % (A) 19 %; MCH 30.7 pg (25.0-35.0); MCHC 33.2 g/dL (31.0-37.0); MCV 92.4 fL (80.0-100.0); Mean Platelet Volume 5.8; Monocytes # (A) 0.3 k/uL (0-1.0); Monocytes % (A) 6 %; Neutrophils # (A) 3.3 k/uL (1.3-7.7); Neutrophils % (A) 68 %; Platelet Count 233 k/uL (150-450); RBC 4.28 m/uL (3.80-5.40); RDW 12.6 % (11.5-15.5); WBC 4.8 k/uL (3.8-10.6)
[2018-12-27 16:29] LABS: African American GFR (CKD) 87.8 (60.0-200.0); Albumin/Globulin Ratio 2.11 (1.60-3.17); Anion Gap 5.9 mmol/L (4.00-12.00); BUN/Creat Ratio 23.75 Ratio (12.00-20.00); Calcium 9.2 mg/dL (8.7-10.3); Carbon Dioxide 30.1 mmol/L (21.6-31.8); Chol/HDL Ratio 2.66; Globulin 1.9 g/dL (1.6-3.3); LDL Cholesterol,Calculated 79.8 mg/dL (0.0-131.0); Potassium 4.2 mmol/L (3.5-5.5); Total Bilirubin 0.6 mg/dL (0.2-1.2); Total Protein 5.9 g/dL (6.2-8.2); VLDL Calculation 18.2 mg/dL (5.00-40.00)
[2018-12-27 16:37] LABS: T4, Free (Free Thyroxine) 1.1 ng/dL (0.80-1.80)
[2018-12-27 17:47] LABS: Hemoglobin A1C 7.7 % (4.0-6.0)
== END ==
LOC: LABWHC1 11:05
PROVIDERS: ATTEND Family Medicine
DX: E11.65 Type 2 diabetes mellitus with hyperglycemia (principal); I10 Essential (primary) hypertension; E78.5 Hyperlipidemia, unspecified
CPT/HCPCS: 36415; 80053; 80061; 83036; 84439; 84443; 85025

== ENCOUNTER → 2019-04-18 | Outpatient (CLI) | payer MEDICARE ==
[2019-04-18 11:26] LABS: Basophils % (A) 1 %; Eosinophils # (A) 0.1 k/uL (0-0.7); Eosinophils % (A) 3 %; HCT 40.1 % (34.0-46.0); HGB 12.8 gm/dL (11.4-16.0); Lymphocytes # (A) 1.2 k/uL (1.0-4.8); Lymphocytes % (A) 25 %; MCH 29.3 pg (25.0-35.0); MCV 91.6 fL (80.0-100.0); Mean Platelet Volume 7.2; Monocytes # (A) 0.3 k/uL (0-1.0); Monocytes % (A) 6 %; Neutrophils # (A) 3.1 k/uL (1.3-7.7); Neutrophils % (A) 64 %; Platelet Count 240 k/uL (150-450); RBC 4.38 m/uL (3.80-5.40); RDW 12.8 % (11.5-15.5); WBC 4.8 k/uL (3.8-10.6)
[2019-04-18 16:56] LABS: African American GFR (CKD) 87.8 (60.0-200.0); Albumin/Globulin Ratio 2.11 (1.60-3.17); Anion Gap 6.9 mmol/L (4.00-12.00); BUN/Creat Ratio 26.25 Ratio (12.00-20.00); Calcium 9.3 mg/dL (8.7-10.3); Carbon Dioxide 31.1 mmol/L (21.6-31.8); Chol/HDL Ratio 2.28; Globulin 1.9 g/dL (1.6-3.3); LDL Cholesterol,Calculated 72.6 mg/dL (0.0-131.0); Non-African American GFR(CKD) 75.8 (60.0-200.0); Potassium 4.2 mmol/L (3.5-5.5); Total Bilirubin 0.6 mg/dL (0.2-1.2); Total Protein 5.9 g/dL (6.2-8.2); VLDL Calculation 15.4 mg/dL (5.00-40.00)
[2019-04-18 19:09] LABS: Hemoglobin A1C 7.5 % (4.0-6.0)
== END | disposition home or self-care (01) ==
LOC: LABWHC1 10:10
PROVIDERS: ATTEND Family Medicine
DX: I10 Essential (primary) hypertension (principal); E11.65 Type 2 diabetes mellitus with hyperglycemia; G62.9 Polyneuropathy, unspecified; E78.5 Hyperlipidemia, unspecified
CPT/HCPCS: 36415; 80053; 80061; 82306; 82550; 82607; 83036; 84443; 85025

== ENCOUNTER → 2019-07-27 | Outpatient (CLI) | payer MEDICARE ==
--- NOTE | 2019-07-27 15:15 | CT ---
EXAMINATION TYPE: CT brain wo con DATE OF EXAM: 07/27/2019 COMPARISON: None INDICATION: Headaches, post fall DLP: 1138 mGycm, Automated exposure control for dose reduction was used. CONTRAST: None CT of the brain is performed utilizing 3 mm thick sections through the posterior fossa and 3 mm thick sections through the remaining calvarium. Study is performed within 24 hours of arrival to the hosp [facility]. No abnormal hyperdensity is present to suggest an acute intracranial hemorrhage. There appears to be some subtle extra-axial prominence at the right posterior vertex, example image s eries 3 image 41. This is a depth of 0.7 cm with slight displacement of the adjacent brain. Edema i s not identified on this exam. ExtraAxial lesion such as a meningioma suspected. This could be further evaluated with contrast MRI. Anomalous sagittal sinus potentially could be within the differential. No additional masslike areas a re evident. No acute infarcts are evident. Ventricles and sulci are appropriate for the patient age. Paranasal sinuses and mastoid air cells within the aopfc-kg-nlbr are clear. IMPRESSIONS: 1. There may be a small meningioma in the posterior right vertex adjacent to the occipital lobe. Th is can be evaluated on an outpatient basis with contrast MRI. 2. Remainder the brain appears unremarkable.
== END | disposition home or self-care (01) ==
LOC: RADCTMAIN 14:17
PROVIDERS: ATTEND Family Medicine
DX: R51 Headache (principal)
CPT/HCPCS: 70450

== ENCOUNTER → 2019-08-24 | Outpatient (CLI) | payer MEDICARE ==
[2019-08-24 15:46] LABS: Basophils % (A) 1 %; Eosinophils # (A) 0.2 k/uL (0-0.7); Eosinophils % (A) 4 %; HCT 41.8 % (34.0-46.0); HGB 12.9 gm/dL (11.4-16.0); Lymphocytes # (A) 1.1 k/uL (1.0-4.8); Lymphocytes % (A) 23 %; MCH 28.9 pg (25.0-35.0); MCHC 30.9 g/dL (31.0-37.0); MCV 93.5 fL (80.0-100.0); Mean Platelet Volume 7.4; Monocytes # (A) 0.3 k/uL (0-1.0); Monocytes % (A) 7 %; Neutrophils % (A) 62 %; Platelet Count 225 k/uL (150-450); RBC 4.47 m/uL (3.80-5.40); RDW 13.3 % (11.5-15.5); WBC 4.8 k/uL (3.8-10.6)
[2019-08-24 23:22] LABS: African American GFR (CKD) 76.1 (60.0-200.0); Albumin 3.9 g/dL (3.80-4.90); Albumin/Globulin Ratio 1.77 (1.60-3.17); Anion Gap 5.6 mmol/L (4.00-12.00); BUN/Creat Ratio 21.11 Ratio (12.00-20.00); Calcium 9.3 mg/dL (8.7-10.3); Carbon Dioxide 31.4 mmol/L (21.6-31.8); Chol/HDL Ratio 2.64; Globulin 2.2 g/dL (1.6-3.3); Non-African American GFR(CKD) 65.7 (60.0-200.0); Potassium 4.5 mmol/L (3.5-5.5); Total Bilirubin 0.6 mg/dL (0.2-1.2); Total Protein 6.1 g/dL (6.2-8.2)
[2019-08-24 23:49] LABS: Hemoglobin A1C 8.6 % (4.0-6.0)
[2019-08-25 01:02] LABS: Urine Creatinine 188.6 mg/dL
== END | disposition home or self-care (01) ==
LOC: LABWHC1 13:59
PROVIDERS: ATTEND Family Medicine
DX: E78.5 Hyperlipidemia, unspecified (principal); E11.9 Type 2 diabetes mellitus without complications; F34.1 Dysthymic disorder; I10 Essential (primary) hypertension
CPT/HCPCS: 36415; 80053; 80061; 82043; 82570; 83036; 84443; 85025

== ENCOUNTER → 2019-10-21 | Outpatient (CLI) | payer MEDICARE ==
[2019-10-21 11:36] LABS: Basophils % (A) 1 %; Eosinophils # (A) 0.2 k/uL (0-0.7); Eosinophils % (A) 3 %; HCT 39.9 % (34.0-46.0); HGB 12.8 gm/dL (11.4-16.0); Lymphocytes # (A) 1.2 k/uL (1.0-4.8); Lymphocytes % (A) 22 %; MCH 29.9 pg (25.0-35.0); MCHC 32.2 g/dL (31.0-37.0); MCV 93.1 fL (80.0-100.0); Mean Platelet Volume 7.4; Monocytes # (A) 0.3 k/uL (0-1.0); Monocytes % (A) 6 %; Neutrophils # (A) 3.8 k/uL (1.3-7.7); Neutrophils % (A) 67 %; Platelet Count 227 k/uL (150-450); RBC 4.28 m/uL (3.80-5.40); RDW 13.2 % (11.5-15.5); WBC 5.6 k/uL (3.8-10.6)
[2019-10-21 17:31] LABS: African American GFR (CKD) 76.1 (60.0-200.0); Anion Gap 7.6 mmol/L (4.00-12.00); BUN/Creat Ratio 25.56 Ratio (12.00-20.00); Calcium 9.2 mg/dL (8.7-10.3); Carbon Dioxide 30.4 mmol/L (21.6-31.8); Non-African American GFR(CKD) 65.7 (60.0-200.0); Potassium 3.9 mmol/L (3.5-5.5)
[2019-10-21 18:11] LABS: INR 0.97 (0.90-1.11); Prothrombin Time 10.4 sec (9.9-11.9)
== END | disposition home or self-care (01) ==
LOC: LABWHC1 09:41
PROVIDERS: ATTEND Family Medicine
DX: Z01.818 Encounter for other preprocedural examination (principal); E11.65 Type 2 diabetes mellitus with hyperglycemia
CPT/HCPCS: 36415; 80048; 85025; 85610

== ENCOUNTER → 2020-01-03 | Outpatient (CLI) | payer MEDICARE ==
[2020-01-03 12:15] LABS: Basophils % (A) 1 %; Eosinophils # (A) 0.1 k/uL (0-0.7); Eosinophils % (A) 3 %; HCT 41.5 % (34.0-46.0); HGB 13.7 gm/dL (11.4-16.0); Lymphocytes # (A) 1.2 k/uL (1.0-4.8); Lymphocytes % (A) 23 %; MCH 30.7 pg (25.0-35.0); MCHC 33.1 g/dL (31.0-37.0); MCV 92.7 fL (80.0-100.0); Mean Platelet Volume 6.9; Monocytes # (A) 0.3 k/uL (0-1.0); Monocytes % (A) 7 %; Neutrophils # (A) 3.1 k/uL (1.3-7.7); Neutrophils % (A) 64 %; Platelet Count 244 k/uL (150-450); RBC 4.48 m/uL (3.80-5.40); RDW 12.7 % (11.5-15.5); WBC 4.9 k/uL (3.8-10.6)
[2020-01-03 18:41] LABS: African American GFR (CKD) 75.6 (60.0-200.0); Albumin 4.2 g/dL (3.80-4.90); Albumin/Globulin Ratio 2.1 (1.60-3.17); Anion Gap 5.3 mmol/L (4.00-12.00); BUN/Creat Ratio 23.33 Ratio (12.00-20.00); Calcium 9.6 mg/dL (8.7-10.3); Carbon Dioxide 34.7 mmol/L (21.6-31.8); Chol/HDL Ratio 2.9; LDL Cholesterol,Calculated 88.2 mg/dL (0.0-131.0); Non-African American GFR(CKD) 65.2 (60.0-200.0); Potassium 4.4 mmol/L (3.5-5.5); Total Bilirubin 0.6 mg/dL (0.3-1.2); Total Protein 6.2 g/dL (6.2-8.2); VLDL Calculation 21.8 mg/dL (5.00-40.00)
[2020-01-03 21:06] LABS: Urine Creatinine 154.6 mg/dL
[2020-01-03 21:23] LABS: Hemoglobin A1C 8.2 % (4.0-6.0)
== END | disposition home or self-care (01) ==
LOC: LABWHC1 09:53
PROVIDERS: ATTEND Family Medicine
DX: I10 Essential (primary) hypertension (principal); E78.5 Hyperlipidemia, unspecified; E11.9 Type 2 diabetes mellitus without complications; F34.1 Dysthymic disorder
CPT/HCPCS: 36415; 80053; 80061; 82043; 82570; 83036; 84443; 85025

== ENCOUNTER → 2020-01-04 | Outpatient (CLI) | payer MEDICARE ==
[2020-01-04 13:23] VITALS: BP 134/82; PULSE 64; RESP 16; TEMP 98.4; BMI 35.3
--- NOTE | 2020-01-04 14:03 | P.PN ---
Subjective Progress Note Date: 01/04/20 DATE OF SERVICE: 01/04/2020 CHIEF COMPLAINT: Follow-up gastric bypass. HISTORY OF PRESENT ILLNESS: Eboni Otoole is a 69-year-old female status post Susana-en-Y gastric bypass April 24, 2014. She is 5 years out. She reports weight gain. She denies belly pain. She still takes medications for her blood sugar. Her Hgb A1c 7.0. She reports eating her sweets. She has gained 20 pounds in 1 year. She reports urinary incontinence. Her highest weight was 323 pounds. Today, she comes in 236 pounds from 218 pounds, 1 year ago. She has gained 18 pounds in 1 year. Percent excess weight loss is 55 %. She has maintained 87-pound weight loss. Body mass index is reduced from 48.5 down to 35.4. PHYSICAL EXAM: VITAL SIGNS: 5 feet 8-1/2 inches, 236 pounds. Body mass index 35.4. Vital Signs Temp 98.4 F 01/04/20 13:20 Pulse 64 01/04/20 13:20 Resp 16 01/04/20 13:20 BP 134/82 01/04/20 13:20 Pulse Ox GENERAL: Well-developed female in no acute distress. ABDOMEN: Soft, nontender, nondistended. MUSCULOSKELETAL: No clubbing, cyanosis or edema. HEENT: No sclera icterus. Extraocular movements grossly intact. Moist buccal mucosa. Head is atraumatic, normocephalic. Hears conversational speech. No nasal drainage. NECK: Supple without lymphadenopathy. No JV distention. CHEST: Non-labored respirations and equal bilateral excursions. CARDIOVASCULAR: Regular rate and rhythm. Palpable 2+ radial pulses. NEUROLOGIC: No focal or lateralizing signs. Cranial nerves II through XII grossly intact. PSYCH: Appropriate affect. Alert and oriented to person, place and time. SKIN: Well perfused. Good skin turgor. LABS: Hgb A1c is elevated 8.2%. ASSESSMENT: 1. Morbid obesity due to excess calories, now resolved. 2. Body mass index reduced from 48.5 down to 35.4. 3. Status post Susana-en-Y gastric bypass. 4. Insulin-dependent diabetes type 2 5. History of obstructive sleep apnea, now resolved. 6. Previous history of gastroesophageal reflux disease, now resolved. 7. Hypertensive heart disease, improved. 8. Obstructive sleep apnea, improved. 9. Prior history of gastrojejunal stricture, resolved. 10. Osteoarthritis of the lower back, improved. 11. Osteoarthritis bilateral knees, improved. 12. Depressive disorder 13. Hypokalemia PLAN: 1. For urinary incontinence, she is going to [facility]. 2. Follow up in 1 year. Objective - Vital Signs Vital signs: Vital Signs Temp 98.4 F 01/04/20 13:20 Pulse 64 01/04/20 13:20 Resp 16 01/04/20 13:20 BP 134/82 01/04/20 13:20 Pulse Ox Intake & Output 01/03/20 01/04/20 01/04/20 18:59 06:59 18:59 Weight 107.048 kg
== END | disposition home or self-care (01) ==
LOC: BARWHC3 13:03
PROVIDERS: ATTEND Surgery Plastic and Reconstructive Surgery
DX: Z48.815 Encounter for surgical aftercare following surgery on the digestive system (principal); Z98.84 Bariatric surgery status; E11.9 Type 2 diabetes mellitus without complications; Z79.4 Long term (current) use of insulin; Z87.09 Personal history of other diseases of the respiratory system; Z87.19 Personal history of other diseases of the digestive system; I11.9 Hypertensive heart disease without heart failure; J44.9 Chronic obstructive pulmonary disease, unspecified; M17.0 Bilateral primary osteoarthritis of knee; F32.9 Major depressive disorder, single episode, unspecified; E87.6 Hypokalemia
CPT/HCPCS: 99211

== ENCOUNTER → 2020-01-16 | Outpatient (CLI) | payer MEDICARE ==
[2020-01-16 15:43] LABS: % Iron Saturation 33.11 (12.00-45.00); Phosphorus 3.8 mg/dL (2.4-5.1)
[2020-01-16 15:53] LABS: Ferritin 34.3 ng/mL (10.0-291.0)
[2020-01-16 15:56] LABS: Folate, Serum 12.3 ng/mL
[2020-01-17 01:18] LABS: INR 1.02 (0.90-1.11); Partial Thromboplastin Time 28.3 sec (23.5-31.0)
[2020-01-17 12:21] LABS: Zinc, Serum 70 ug/dL (60-130)
[2020-01-18 06:01] LABS: Vitamin A 40 ug/dL (38-106)
[2020-01-18 06:12] LABS: Vit B1(Thiamine) 90 ug/L (38-122)
== END | disposition home or self-care (01) ==
LOC: LABWHC1 09:33
PROVIDERS: ATTEND Surgery Plastic and Reconstructive Surgery
DX: E66.01 Morbid (severe) obesity due to excess calories (principal); D50.8 Other iron deficiency anemias; K90.89 Other intestinal malabsorption; E55.9 Vitamin D deficiency, unspecified; K74.1 Hepatic sclerosis; N19 Unspecified kidney failure; K50.90 Crohn's disease, unspecified, without complications
CPT/HCPCS: 36415; 82306; 82525; 82607; 82728; 82746; 83540; 83550; 83735; 83970; 84100; 84134; 84255; 84425; 84443; 84590; 84630; 85610; 85730

== ENCOUNTER → 2020-01-19 | Outpatient (CLI) | payer MEDICARE ==
--- NOTE | 2020-01-19 16:56 | XR ---
EXAMINATION TYPE: XR chest 2V DATE OF EXAM: 01/19/2020 COMPARISON: Prior chest x-ray 04/13/2015 HISTORY: Preop clearance TECHNIQUE: Frontal and lateral views of the chest are obtained. FINDINGS: There is no focal air space opacity, pleural effusion, or pneumothorax seen. The cardiac silhouette size is within normal limits. There are prominent lung volumes. Thoracic spondylosis is p resent. There is eventration of the right hemidiaphragm, patient is rotated. Prominence of pulmonary artery could be indicative of pulmonary artery hypertension. The osseous structures are intact. IMPRESSION: No acute cardiopulmonary process. Additional findings above.
== END | disposition home or self-care (01) ==
LOC: RAD 15:03
PROVIDERS: ATTEND Family Medicine
DX: Z01.818 Encounter for other preprocedural examination (principal)
CPT/HCPCS: 71046

== ENCOUNTER → 2020-05-14 | Outpatient (CLI) | payer MEDICARE ==
[2020-05-14 09:36] LABS: Basophils % (A) 1 %; Eosinophils # (A) 0.2 k/uL (0-0.7); Eosinophils % (A) 4 %; HCT 38.4 % (34.0-46.0); HGB 13.1 gm/dL (11.4-16.0); Lymphocytes # (A) 1.1 k/uL (1.0-4.8); Lymphocytes % (A) 23 %; MCH 30.7 pg (25.0-35.0); MCHC 34.2 g/dL (31.0-37.0); MCV 89.7 fL (80.0-100.0); Mean Platelet Volume 7.3; Monocytes # (A) 0.4 k/uL (0-1.0); Monocytes % (A) 7 %; Neutrophils # (A) 3.1 k/uL (1.3-7.7); Neutrophils % (A) 64 %; Platelet Count 237 k/uL (150-450); RBC 4.28 m/uL (3.80-5.40); RDW 13.3 % (11.5-15.5); WBC 4.8 k/uL (3.8-10.6)
[2020-05-14 09:43] LABS: ALT 17 U/L (4-34); AST 29 U/L (14-36); African American GFR (CKD) >90 (>60 ml/min/1.73 sqM); Albumin 3.7 g/dL (3.5-5.0); Alkaline Phosphatase 89 U/L (38-126); Anion Gap 6 mmol/L; Blood Urea Nitrogen 19 mg/dL (7-17); Calcium 9.1 mg/dL (8.4-10.2); Carbon Dioxide 34 mmol/L (22-30); Chloride 103 mmol/L (98-107); Cholesterol 146 mg/dL (<200); Creatine Kinase 93 U/L (30-135); Glucose 136 mg/dL (74-99); HDL Cholesterol 62 mg/dL (40-60); LDL Cholesterol,Calculated 68 mg/dL (0-99); Non-African American GFR(CKD) 81 (>60 ml/min/1.73 sqM); Potassium 3.6 mmol/L (3.5-5.1); Sodium 143 mmol/L (137-145); Total Bilirubin 0.5 mg/dL (0.2-1.3); Total Protein 6.3 g/dL (6.3-8.2); Triglycerides 80 mg/dL (<150)
[2020-05-14 09:58] LABS: T4, Free (Free Thyroxine) 1.16 ng/dL (0.78-2.19)
[2020-05-15 08:12] LABS: Hemoglobin A1C 7.6 % (4.0-6.0)
[2020-05-16 07:05] LABS: Zinc, Serum 66 ug/dL (60-130)
[2020-05-16 07:52] LABS: Vit B1(Thiamine) 92 ug/L (38-122)
[2020-05-16 08:20] LABS: Vitamin A 37 ug/dL (38-106)
== END | disposition home or self-care (01) ==
LOC: LABPAT 09:09
PROVIDERS: ATTEND Family Medicine
DX: Z01.818 Encounter for other preprocedural examination (principal); E11.65 Type 2 diabetes mellitus with hyperglycemia; I10 Essential (primary) hypertension; E55.9 Vitamin D deficiency, unspecified; E53.8 Deficiency of other specified B group vitamins
CPT/HCPCS: 80053; 80061; 82306; 82550; 82607; 83036; 83735; 84425; 84439; 84443; 84590; 84630; 85025

== ENCOUNTER → 2020-09-17 | Outpatient (CLI) | payer MEDICARE ==
[2020-09-17 11:07] LABS: Appearance,Urine Cloudy (Clear); Bacteria,Urine Rare /hpf; Bilirubin,Urine Negative (Negative); Blood,Urine Negative (Negative); Color,Urine Yellow; Glucose,Urine (UA) Negative (Negative); Ketones,Urine Negative (Negative); Leukocyte Esterase,Urine Negative (Negative); Mucus,Urine Rare /hpf; Nitrite,Urine Positive (Negative); PH, Urine 5.5 (5.0-8.0); Protein,Urine Negative (Negative); RBC,Urine 1 /hpf (0-5); Squamous Epithelial Cell,Urine 3 /hpf (0-4); Urobilinogen,Urine <2.0 mg/dL (<2.0); WBC,Urine 2 /hpf (0-5)
[2020-09-17 16:30] LABS: Basophils # (A) 0.02 X 10*3/uL (0.00-0.10); Basophils % (A) 0.4 %; Eosinophils # (A) 0.13 X 10*3/uL (0.04-0.35); Eosinophils % (A) 2.5 %; HCT 38.7 % (37.2-46.3); HGB 12.6 g/dL (12.0-15.0); Lymphocytes % (A) 23.4 %; MCH 30.4 pg (27.0-32.0); MCHC 32.6 g/dL (32.0-37.0); MCV 93.3 fL (80.0-97.0); Mean Platelet Volume 10.6 fL (9.5-12.2); Monocytes # (A) 0.47 X 10*3/uL (0.20-1.00); Monocytes % (A) 9.2 %; Neutrophils # (A) 3.29 X 10*3/uL (1.80-7.70); Neutrophils % (A) 64.3 %; Platelet Count 244 X 10*3/uL (140-440); RBC 4.15 X 10*6/uL (4.10-5.20); RDW 12.8 % (11.5-14.5); WBC 5.12 X 10*3/uL (4.50-10.00)
[2020-09-17 17:00] LABS: African American GFR (CKD) 75.6 (60.0-200.0); Albumin 3.9 g/dL (3.80-4.90); Albumin/Globulin Ratio 1.7 (1.60-3.17); Anion Gap 7.3 mmol/L (4.00-12.00); BUN/Creat Ratio 22.22 Ratio (12.00-20.00); Calcium 9.2 mg/dL (8.7-10.3); Carbon Dioxide 30.7 mmol/L (21.6-31.8); Chol/HDL Ratio 2.96; Globulin 2.3 g/dL (1.6-3.3); LDL Cholesterol,Calculated 70.4 mg/dL (0.0-131.0); Non-African American GFR(CKD) 65.2 (60.0-200.0); Potassium 3.8 mmol/L (3.5-5.5); Total Bilirubin 0.5 mg/dL (0.3-1.2); Total Protein 6.2 g/dL (6.2-8.2); VLDL Calculation 25.6 mg/dL (5.00-40.00)
[2020-09-17 18:17] LABS: Hemoglobin A1C 7.8 % (4.0-6.0)
[2020-09-17 22:54] LABS: Urine Creatinine 112.2 mg/dL
[2020-09-18 12:01] LABS: Zinc, Serum 73 ug/dL (60-130)
[2020-09-19 06:36] LABS: Vitamin A 48 ug/dL (38-106)
[2020-09-19 08:21] LABS: Vit B1(Thiamine) 123 ug/L (38-122)
== END | disposition home or self-care (01) ==
LOC: LABWHC1 09:44
PROVIDERS: ATTEND Family Medicine
DX: Z00.00 Encounter for general adult medical examination without abnormal findings (principal); E78.5 Hyperlipidemia, unspecified; I10 Essential (primary) hypertension; E11.65 Type 2 diabetes mellitus with hyperglycemia; M85.9 Disorder of bone density and structure, unspecified; G62.9 Polyneuropathy, unspecified
CPT/HCPCS: 36415; 80053; 80061; 81001; 82043; 82306; 82550; 82570; 82607; 83036; 84134; 84255; 84425; 84443; 84590; 84630; 85025

== ENCOUNTER → 2020-09-18 | Outpatient (CLI) | payer MEDICARE ==
--- NOTE | 2020-09-18 12:10 | XR ---
EXAMINATION TYPE: XR Hip Complete RT DATE OF EXAM: 09/18/2020 COMPARISON: NONE HISTORY: Pain TECHNIQUE: 2 views submitted FINDINGS: There is no evidence of erosive change or acute fracture. Hypertrophic change of the acetabulum. Spur formation involving greater trochanter. IMPRESSION: 1. Correlate for femoral acetabular impingement. Greater trochanteric spur can be associated with tro chanteric bursitis..
== END | disposition home or self-care (01) ==
LOC: RADXRMAIN 11:17
PROVIDERS: ATTEND Family Medicine
DX: M24.851 Other specific joint derangements of right hip, not elsewhere classified (principal)
CPT/HCPCS: 73502

== ENCOUNTER 2020-11-09 15:29 | Emergency (ER) | payer MEDICARE ==
[2020-11-09 17:01] VITALS: BP 151/88; PULSE 67; RESP 20; TEMP 98.6
--- NOTE | 2020-11-09 19:08 | XR ---
EXAMINATION TYPE: XR ribs RT w pa chest xray DATE OF EXAM: 11/09/2020 COMPARISON: NONE HISTORY: Right-sided rib-bearing after fall. TECHNIQUE: AP and oblique views of the right ribs were taken. PA view of the chest was obtained. FINDINGS: No displaced rib fracture. The lungs are clear. Right upper quadrant clips. Scoliosis of the thoracolumbar spine. IMPRESSION: 1. No displaced rib fracture. 2. The lungs are clear.
--- NOTE | 2020-11-09 19:08 | ED ---
General Adult HPI - General Chief complaint: Fall Stated complaint: Fall-Abd injury Time Seen by Provider: 11/09/20 17:28 Source: patient, RN notes reviewed Mode of arrival: ambulatory Limitations: no limitations - History of Present Illness Initial comments: 70-year-old female with a past medical history of hyperlipidemia, hypertension presents to the emergency room for a chief complaint of fall. Patient states that 2 days ago she was walking in the garage when she tripped over her puppy and fell onto a stool. States she hit the right side of her ribs. States it has been painful since that time. Patient states she thinks she might of broken ribs and wanted to be evaluated. Patient did not hit her head or neck. She does not take blood thinners. She denies abdominal pain. She denies back pain.Patient has no other complaints at this time including shortness of breath, chest pain, abdominal pain, nausea or vomiting, headache, or visual changes. - Related Data Home Medications Medication Instructions Recorded Confirmed Cholecalciferol [Vitamin D3 (25 10,000 unit PO DAILY 11/02/13 01/05/20 Mcg = 1000 Iu)] Metoprolol Succinate [Toprol XL] 50 mg PO QAM 11/02/13 01/05/20 hydroCHLOROthiazide [Hydrodiuril] 25 mg PO DAILY 11/02/13 01/05/20 Multivitamins, Thera [Multivitamin 1 tab PO DAILY 08/17/14 01/05/20 (formulary)] Vitamin A (10,000 Ue=6693 Mcg) 10,000 unit PO DAILY 04/04/16 01/05/20 Omeprazole 20 mg PO DAILY 07/07/18 01/05/20 Optisource 1 tab PO DAILY 07/07/18 01/05/20 Venlafaxine HCl ER [Effexor XR] 75 mg PO DAILY 07/07/18 01/05/20 Previous Rx's Medication Instructions Recorded Simvastatin [Zocor] 20 mg PO HS #90 tab 05/16/15 Zinc Gluconate [Zinc] 50 mg PO DAILY@1200 #60 tablet 06/06/15 Lidocaine 5% Patch [Lidoderm 5% 1 patch TOPICAL DAILY PRN 15 Days 11/09/20 Patch] #15 patch Allergies Allergy/AdvReac Type Severity Reaction Status Date / Time No Known Allergies Allergy Verified 01/05/20 09:03 Review of Systems ROS Statement: Those systems with pertinent positive or pertinent negative responses have been documented in the HPI. ROS Other: All systems not noted in ROS Statement are negative. Past Medical History Past Medical History: GERD/Reflux, Hyperlipidemia, Hypertension, Osteoarthritis (OA) Additional Past Medical History / Comment(s): PREV HX OF SLEEP APNEA, NO LONGER NEEDS CPAP, PREVIOUS HX OF DIABETES, NO LONGER NEEDING MEDS R/T 140LB WT LOSS. HX OF ULCER History of Any Multi-Drug Resistant Organisms: None Reported Past Surgical History: Bariatric Surgery, Bowel Resection, Section, Cholecystectomy, Joint Replacement, Orthopedic Surgery Additional Past Surgical History / Comment(s): Left knee replacement, EGD, BILATERAL CATARACT SURGERY, BREAST BX (PT UNSURE OF SIDE),04-24-14 PRECIOUS-EN-Y, bowel resection 04/12/15, feeding tube replaced 04/13/15, G TUBE REMOVED, bladder sling Past Anesthesia/Blood Transfusion Reactions: No Reported Reaction Past Psychological History: No Psychological Hx Reported Smoking Status: Never smoker Past Alcohol Use History: None Reported Past Drug Use History: None Reported - Past Family History Mother Family Medical History: Cancer Father Family Medical History: Cancer Additional Family Medical History / Comment(s): PANCREATIC General Exam Limitations: no limitations General appearance: alert, in no apparent distress Head exam: Present: atraumatic Eye exam: Present: normal appearance, PERRL, EOMI. Absent: scleral icterus, conjunctival injection ENT exam: Present: normal exam, mucous membranes moist Neck exam: Present: normal inspection, full ROM. Absent: tenderness Respiratory exam: Present: normal lung sounds bilaterally, other (Patient does have right sided anterior lateral rib tenderness around ribs 7/8. She has some mild ecchymosis in this area.). Absent: respiratory distress, wheezes Cardiovascular Exam: Present: regular rate, normal rhythm, normal heart sounds GI/Abdominal exam: Present: soft, normal bowel sounds. Absent: distended, tenderness Course Vital Signs 11/09/20 16:57 Temperature 98.6 F Pulse Rate 67 Respiratory 20 Rate Blood Pressure 151/88 O2 Sat by Pulse 95 Oximetry Medical Decision Making - Medical Decision Making Vitals are stable. Patient is well-appearing. Patient has right-sided rib tenderness. No abdominal tenderness or flank tenderness. Minimal ecchymosis on the ribs. X-ray shows no displaced rib fracture. The lungs are clear. At this time patient will be discharged home with pain medication. She will monitor symptoms. If she has any worsening symptoms she will return to the emergency room. Otherwise she will follow-up with her doctor. Disposition Clinical Impression: Contusion of rib on right side Disposition: HOME SELF-CARE Condition: Good Instructions (If sedation given, give patient instructions): Rib Contusion (ED) Additional Instructions: Please take Tylenol 3 for pain. Use lidocaine patches as needed. Please follow-up with your doctor in one to 2 days. Return to the emergency room for any worsening symptoms. Prescriptions: Lidocaine 5% Patch [Lidoderm 5% Patch] 1 patch TOPICAL DAILY PRN 15 Days #15 patch PRN Reason: Pain Is patient prescribed a controlled substance at d/c from ED?: No Referrals: Leah Bhagat MD [Primary Care Provider] - 1-2 days
[2020-11-09] MEDS ORDERED: ACETAMINOPHEN TAB 500 MG TAB PO STA (19:32)
[2020-11-09] MEDS ORDERED: ACET/COD 300 MG/30 MG STARTER PACK 6 TAB BTL PO STA (19:34)
== END 2020-11-09 19:55 | disposition home or self-care (01) ==
LOC: EC 15:29
DX: S20.211A Contusion of right front wall of thorax, initial encounter (principal); I10 Essential (primary) hypertension; E78.5 Hyperlipidemia, unspecified; K21.9 Gastro-esophageal reflux disease without esophagitis; M19.90 Unspecified osteoarthritis, unspecified site; Z98.84 Bariatric surgery status; Z90.49 Acquired absence of other specified parts of digestive tract; Z96.652 Presence of left artificial knee joint; W01.10XA Fall on same level from slipping, tripping and stumbling with subsequent striking against unspecified object, initial encounter
CPT/HCPCS: 99283

== ENCOUNTER → 2021-01-21 | Outpatient (CLI) | payer MEDICARE ==
[2021-01-21 14:33] LABS: Basophils # (A) 0.03 X 10*3/uL (0.00-0.10); Basophils % (A) 0.5 %; Eosinophils # (A) 0.24 X 10*3/uL (0.04-0.35); Eosinophils % (A) 4.4 %; HCT 39.2 % (37.2-46.3); HGB 12.4 g/dL (12.0-15.0); Lymphocytes # (A) 1.19 X 10*3/uL (0.90-5.00); Lymphocytes % (A) 21.7 %; MCH 29.3 pg (27.0-32.0); MCHC 31.6 g/dL (32.0-37.0); MCV 92.7 fL (80.0-97.0); Mean Platelet Volume 10.4 fL (9.5-12.2); Monocytes # (A) 0.55 X 10*3/uL (0.20-1.00); Neutrophils # (A) 3.45 X 10*3/uL (1.80-7.70); Platelet Count 257 X 10*3/uL (140-440); RBC 4.23 X 10*6/uL (4.10-5.20); RDW 12.7 % (11.5-14.5); WBC 5.48 X 10*3/uL (4.50-10.00)
[2021-01-21 15:21] LABS: African American GFR (CKD) 83.3 (60.0-200.0); Albumin/Globulin Ratio 1.83 (1.60-3.17); BUN/Creat Ratio 22.52 Ratio (12.00-20.00); Blood Urea Nitrogen 18.6 mg/dL (9.0-27.0); Calcium 9.4 mg/dL (8.7-10.3); Carbon Dioxide 29.5 mmol/L (20.0-27.5); Globulin 2.2 g/dL (1.6-3.3); Non-African American GFR(CKD) 71.9 (60.0-200.0); T4, Free (Free Thyroxine) 1.08 ng/dL (0.800-1.800); Total Bilirubin 0.4 mg/dL (0.30-1.20); Total Protein 6.2 g/dL (6.2-8.2)
== END | disposition home or self-care (01) ==
LOC: LABWHC1 08:35
PROVIDERS: ATTEND Family Medicine
DX: E11.65 Type 2 diabetes mellitus with hyperglycemia (principal); E78.5 Hyperlipidemia, unspecified; F34.1 Dysthymic disorder
CPT/HCPCS: 36415; 80053; 82550; 83036; 84439; 84443; 85025

== ENCOUNTER → 2021-02-12 | Outpatient (CLI) | payer MEDICARE ==
--- NOTE | 2021-02-14 12:21 | MM ---
Reason for exam: screening (asymptomatic). Last mammogram was performed 3 years and 3 months ago. History: Patient is postmenopausal. 2 core biopsies of the right breast. Physical Findings: A clinical breast exam by your physician is recommended on an annual basis and results should be correlated with mammographic findings. MG 3D Screening Mammo W/Cad Bilateral CC and MLO view(s) were taken. CV view(s) were taken of the left breast. Prior study comparison: November 17, 2017, bilateral MG 3d screening mammo w/cad. September 27, 2015, bilateral MG screening mammo w CAD. The breast tissue is heterogeneously dense. This may lower the sensitivity of mammography. Finding #1: There is a 10 mm high density, circumscribed lobulated mass in the 9 o'clock upper outer quadrant, middle posterior position of the right breast. Finding #2: There are typically benign round, diffuse/scattered calcifications in both breasts. Post biopsy changes in the right breast. New finding since November 17, 2017 and September 27, 2015. ASSESSMENT: Incomplete: need additional imaging evaluation, BI-RAD 0 RECOMMENDATION: Ultrasound of the right breast. [facility] will attempt to contact patient to return for ultrasound.
== END | disposition home or self-care (01) ==
LOC: RADMAMWWP 07:49
PROVIDERS: ATTEND Family Medicine
DX: Z12.31 Encounter for screening mammogram for malignant neoplasm of breast (principal); Z78.0 Asymptomatic menopausal state
CPT/HCPCS: 77063; 77067

== ENCOUNTER → 2021-02-28 | Outpatient (CLI) | payer MEDICARE ==
[2021-02-28 10:32] VITALS: BP 155/91; PULSE 99; RESP 17; TEMP 98
--- NOTE | 2021-02-28 10:56 | P.GSHP ---
History of Present Illness H&P Date: 02/28/21 Chief Complaint: abnormal right breast mammogram Eboni is a 70 year old female seen in consultation for Dr. Bhagat regarding the radiographic abnormality in the right breast. She had bilateral screening mammogram performed on [id number]. An ultrasound of the right breast was recommended. This revealed a lesion in the middle posterior position of the right breast for which an ultrasound core biopsy was recommended. The patient is able to feel a lesion in her right breast for about one month. It is not tender. It has not changed in size. She has not had any recent trauma or infection in either breast. She has had an on open biopsy and a stero-biopsy of hte breast in the past. She does not recall which side. Niether were cancer. Is not complaining of any nipple discharge or skin changes. She is not complaining of any pain in her breasts. Caffiene: tea 3 cups/day nicotine: none chocolate: rare BCP: less than 1 year in remote past hormones: none Family history: mother: uterine cancer father: pancreatic cancer Hormonal History: menarche: 15 , breast fed: yes, age at first : 28 menopause: 55 hormones: none Surgical History: bilateral cataracts bladder sling left knee replacement gastric bypass ruptured bypass repaired left knee replacement Medical History: HTN DM Social History: nicotine: none alcohol: none drugs: none - Constitutional Constitutional: Denies chills, Denies fever - EENT Comment: retinal hole left eye Eyes: bilateral as per HPI, denies blurred vision, denies pain Ears: deny: decreased hearing, tinnitus Ears, nose, mouth and throat: Denies headache, Denies sore throat - Breasts Breasts: bilateral: as per HPI - Cardiovascular Cardiovascular: Denies chest pain, Denies shortness of breath - Respiratory Respiratory: Denies cough, Denies 7 - Gastrointestinal Gastrointestinal: Reports as per HPI, Denies abdominal pain, Denies diarrhea, Denies nausea, Denies vomiting - Genitourinary (Female) Genitourinary: Denies dysuria, Denies hematuria - Menstruation Menstruation: Reports postmenopausal - Musculoskeletal Comment: arthritis - Integumentary Integumentary: Denies pruritus, Denies rash - Neurological Neurological: Denies numbness, Denies weakness - Psychiatric Psychiatric: Reports depression - Endocrine Endocrine: Denies fatigue, Denies weight change - Hematologic/Lymphatic Comment: none - Allergic/Immunologic Allergic/Immunologic: Reports as per HPI Past Medical History Past Medical History: Diabetes Mellitus, GERD/Reflux, Hyperlipidemia, Hypertension, Osteoarthritis (OA) Additional Past Medical History / Comment(s): PREV HX OF SLEEP APNEA, NO LONGER NEEDS CPAP, PREVIOUS HX OF DIABETES, NO LONGER NEEDING MEDS R/T 140LB WT LOSS. HX OF ULCER History of Any Multi-Drug Resistant Organisms: None Reported Past Surgical History: Bariatric Surgery, Bowel Resection, Section, Cholecystectomy, Joint Replacement, Orthopedic Surgery Additional Past Surgical History / Comment(s): Left knee replacement, EGD, BILATERAL CATARACT SURGERY, BREAST BX (PT UNSURE OF SIDE),04-24-14 PRECIOUS-EN-Y, bowel resection 04/12/15, feeding tube replaced 04/13/15, G TUBE REMOVED, bladder sling Past Anesthesia/Blood Transfusion Reactions: No Reported Reaction Past Psychological History: No Psychological Hx Reported Smoking Status: Never smoker Past Alcohol Use History: None Reported Past Drug Use History: None Reported - Past Family History Mother Family Medical History: Cancer Father Family Medical History: Cancer Additional Family Medical History / Comment(s): PANCREATIC Medications and Allergies Home Medications Medication Instructions Recorded Confirmed Type Cholecalciferol [Vitamin D3 (25 10,000 unit PO DAILY 11/02/13 01/05/20 History Mcg = 1000 Iu)] Metoprolol Succinate [Toprol XL] 50 mg PO QAM 11/02/13 01/05/20 History hydroCHLOROthiazide [Hydrodiuril] 25 mg PO DAILY 11/02/13 01/05/20 History Multivitamins, Thera [Multivitamin 1 tab PO DAILY 08/17/14 01/05/20 History (formulary)] Simvastatin [Zocor] 20 mg PO HS #90 tab 05/16/15 01/05/20 Rx Zinc Gluconate [Zinc] 50 mg PO DAILY@1200 #60 tablet 06/06/15 01/05/20 Rx Vitamin A (10,000 Bl=9386 Mcg) 10,000 unit PO DAILY 04/04/16 01/05/20 History Omeprazole 20 mg PO DAILY 07/07/18 01/05/20 History Optisource 1 tab PO DAILY 07/07/18 01/05/20 History Venlafaxine HCl ER [Effexor XR] 75 mg PO DAILY 07/07/18 01/05/20 History Lidocaine 5% Patch [Lidoderm 5% 1 patch TOPICAL DAILY PRN 15 Days 11/09/20 Rx Patch] #15 patch Allergies Allergy/AdvReac Type Severity Reaction Status Date / Time No Known Allergies Allergy Verified 01/05/20 09:03 Surgical - Exam Vital Signs Temp Pulse Resp BP 98.0 F 99 17 155/91 02/28/21 10:26 02/28/21 10:26 02/28/21 10:26 02/28/21 10:26 BMI 34 - General no distress - Eyes normal ocular movement - ENT no hearing loss - Neck trachea midline - Respiratory normal respiratory effort - Cardiovascular Rhythm: regular Heart Sounds: normal: S1, S2 - Integumentary normal turgor - Neurologic no disoriented, no combative - Musculoskeletal normal gait - Psychiatric oriented to time, oriented to person, oriented to place, speech is normal, memory intact Breast Exam: BRA: 38D inspection: bilateral grade 3 ptosis palpation: right breast: Multi-positional exam fibrocystic changes, at the 10 o'clock position is approximately 1-1/2 cm nodule which is freely mobile Right axilla: No adenopathy of concern Left breast: Positional exam fibrocystic changes no dominant masses or nodules of concern Left axilla: No adenopathy of concern Patient has fungal infection under both breast Results Mammogram and ultrasound reviewed with Dr. Leigh/lesion right breast Assessment and Plan Assessment: Impression: 1. Abnormal right breast mammogram 2. Palpable mass right breast 3. Fibrocystic breast changes 4. Hypertension 5. Diabetes 6. Fungal infection under both breasts Plan: 1. Nystatin 2. Ultrasound core biopsy right breast 3. Follow-up after ultrasound-guided core biopsy CC: Dr. Bhagat Risk and benefits of ultrasound core biopsy discussed with the patient. Risks include but are not limited to bleeding, infection, reaction to the anesthetic. She understands and wishes to proceed.
== END ==
LOC: WWCWWP 10:21
PROVIDERS: ATTEND Surgery
DX: R92.8 Other abnormal and inconclusive findings on diagnostic imaging of breast (principal); N60.11 Diffuse cystic mastopathy of right breast; N60.12 Diffuse cystic mastopathy of left breast; N63.10 Unspecified lump in the right breast, unspecified quadrant; I10 Essential (primary) hypertension; E11.9 Type 2 diabetes mellitus without complications; B36.8 Other specified superficial mycoses; E78.5 Hyperlipidemia, unspecified; M19.90 Unspecified osteoarthritis, unspecified site; K21.9 Gastro-esophageal reflux disease without esophagitis; Z79.899 Other long term (current) drug therapy

== ENCOUNTER → 2021-02-28 | Outpatient (CLI) | payer MEDICARE ==
--- NOTE | 2021-03-04 08:31 | USB ---
Reason for exam: additional evaluation requested from abnormal screening. History: Patient is postmenopausal. 2 core biopsies of the right breast. Physical Findings: Nurse did not find any significant physical abnormalities on exam. US Breast Workup RT Right complete breast ultrasound includes all four quadrants, the retroareolar region and axilla. Finding demonstrates a 0.2 x 0.3 x 0.1cm oval, hyperechoic calcification at 9 o'clock, a 1.8 x 1.8 x 1.6cm palpable, lobular, oval, mixed, hypoechoic lesion with through transmission at 9 o'clock, suspicious, mammographic correlate and a hyperechoic calcification at 10 o'clock. No axillary lymphadenopathy. These results were verbally communicated with the patient and result sheet given to the patient on 02/28/21. ASSESSMENT: Suspicious, BI-RAD 4 RECOMMENDATION: Ultrasound core biopsy of the right breast. Called Dr. Bhagat's office with mammographic findings and has scheduled an appointment for the patient for 02/28/21 at 10:[address] Brewer. Biopsy scheduled for 03/05/21 at 8:00. PRELIMINARY REPORT CALLED AND FAXED TO DR. BREWER ON 03/04/21.
== END | disposition home or self-care (01) ==
LOC: RADUSWWP 09:03
PROVIDERS: ATTEND Family Medicine
DX: R92.1 Mammographic calcification found on diagnostic imaging of breast (principal); N64.59 Other signs and symptoms in breast; Z78.0 Asymptomatic menopausal state

== ENCOUNTER → 2021-03-05 | Day surgery (SDC) | payer MEDICARE ==
[2021-03-05 07:23] VITALS: RESP 16; TEMP 98
[2021-03-05 08:40] VITALS: BP 151/83; PULSE 50
--- NOTE | 2021-03-05 08:53 | USB ---
EXAMINATION TYPE: US biopsy breast VAD RT, MG diagnostic mammo RT wo CAD DATE OF EXAM: 03/05/2021 CLINICAL HISTORY: R92.8 ABNORMAL MAMMOGRAM. Abnormal ultrasound TECHNIQUE: Ultrasound guided core biopsy of right breast with clip placement and follow-up mammogram. COMPARISON: Ultrasound 5 days ago and older studies. FINDINGS: The procedure of ultrasound guided core biopsy was explained to the patient. Benefits, alternatives, and risks were discussed. An informed consent was then obtained. The patient was placed in supine positioning for imaging and for the procedure. Preprocedure ultrasound redemonstrates hypervascular round hypoechoic near 1.8 cm mass in the right breast 9:00 position. The overlying skin was prepped and draped in usual sterile fashion. Lidocaine is used as anesthetic into the skin and subcutaneous tissue. Lidocaine with epinephrine is used in the deeper tissue up to area of concern in the right breast. Under ultrasound guidance, a vacuum assisted biopsy gun device was used to obtain 2 core samples. Following this, a biopsy clip was left in lesion. The patient tolerated the procedure well without any immediate complication. The patient was kept in the radiology department for short stay after the procedure and then discharged home in stable condition. Postprocedure mammogram confirmed successful deployment of clip corresponding to new area of concern on mammogram. IMPRESSION: Successful, uncomplicated ultrasound guided core biopsy of area of concern in the right breast, full pathology results to follow. High index of suspicion noted at time of procedure. Pathology Results: High Risk RIGHT BREAST, 9:00 POSITION, CORE BIOPSY: Benign intraductal papilloma with florid usual ductal hyperplasia (see note). Recommendation Surgical consult of the right breast. JAMAL
== END ==
LOC: RADUSWWP 07:13
PROVIDERS: ATTEND Surgery
DX: D24.1 Benign neoplasm of right breast (principal); N62 Hypertrophy of breast; R92.8 Other abnormal and inconclusive findings on diagnostic imaging of breast
CPT/HCPCS: 88305; 77065; 19083; A4648; J2001

== ENCOUNTER → 2021-03-22 | Outpatient (CLI) | payer MEDICARE ==
[2021-03-22 15:54] VITALS: BP 143/82; PULSE 56; RESP 16; TEMP 97.9
--- NOTE | 2021-03-22 16:04 | P.PN ---
Subjective Progress Note Date: 03/22/21 Principal diagnosis: Intraductal papilloma right breast Eboni is a 70 year old female seen in consultation for Dr. Bhagat regarding the radiographic abnormality in the right breast. She had bilateral screening mammogram performed on [id number]. An ultrasound of the right breast was recommended. This revealed a lesion in the middle posterior position of the right breast for which an ultrasound core biopsy was recommended. The patient is able to feel a lesion in her right breast for about one month. It is not tender. It has not changed in size. She has not had any recent trauma or infection in either breast. She has had an on open biopsy and a stero-biopsy of hte breast in the past. She does not recall which side. Niether were cancer. Is not complaining of any nipple discharge or skin changes. She is not complaining of any pain in her breasts. 03-05-21 core biopsy of the right breast benign intraductal papilloma; she tolerated the biopsy without difficulty Caffiene: tea 3 cups/day nicotine: none chocolate: rare BCP: less than 1 year in remote past hormones: none Family history: mother: uterine cancer father: pancreatic cancer Hormonal History: menarche: 15 , breast fed: yes, age at first : 28 menopause: 55 hormones: none Surgical History: bilateral cataracts bladder sling left knee replacement gastric bypass ruptured bypass repaired left knee replacement Medical History: HTN DM Social History: nicotine: none alcohol: none drugs: none - Constitutional Constitutional: Denies chills, Denies fever - EENT Comment: retinal hole left eye Eyes: bilateral as per HPI, denies blurred vision, denies pain Ears: deny: decreased hearing, tinnitus Ears, nose, mouth and throat: Denies headache, Denies sore throat - Breasts Breasts: bilateral: as per HPI - Cardiovascular Cardiovascular: Denies chest pain, Denies shortness of breath - Respiratory Respiratory: Denies cough - Gastrointestinal Gastrointestinal: Reports as per HPI, Denies abdominal pain, Denies diarrhea, Denies nausea, Denies vomiting - Genitourinary (Female) Genitourinary: Denies dysuria, Denies hematuria - Menstruation Menstruation: Reports postmenopausal - Musculoskeletal Comment: arthritis - Integumentary Integumentary: Denies pruritus, Denies rash - Neurological Neurological: Denies numbness, Denies weakness - Psychiatric Psychiatric: Reports depression - Endocrine Endocrine: Denies fatigue, Denies weight change - Hematologic/Lymphatic Comment: none - Allergic/Immunologic Allergic/Immunologic: Reports as per HPI Objective - Vital Signs Vital signs: Vital Signs Temp 97.9 F 03/22/21 15:39 Pulse 56 L 03/22/21 15:39 Resp 16 03/22/21 15:39 BP 143/82 03/22/21 15:39 Pulse Ox Intake & Output 03/21/21 03/22/21 03/22/21 18:59 06:59 18:59 Weight 97.522 kg - Exam BMI 31.7 - Constitutional General appearance: Present: cooperative - EENT Eyes: Present: EOMI ENT: Present: hearing grossly normal - Neck Neck: Present: normal ROM - Respiratory Respiratory: bilateral: CTA - Cardiovascular Rhythm: regular Heart sounds: normal: S1, S2 - Integumentary Integumentary: Present: normal turgor - Musculoskeletal Musculoskeletal: Present: gait normal - Psychiatric Psychiatric: Present: A&O x's 3, appropriate affect, intact judgment & insight - Additional findings Additional findings: Breast Exam: BRA: 40G Discussion: Bilateral macromastia, left breast slightly larger than right breast, grade 3 ptosis bilateral, bilateral shoulder notching right breast: Biopsy site clean and dry Breast exam done on Progress: Multiple positional exam fibrocystic changes at 10 o'clock position approximately 1-1/2 cm nodule which is freely mobile question if this represents the area which was sampled Right axilla adenopathy of concern Left breast multiple positional exam no dominant masses or nodules of concern Left axilla: No adenopathy of concern Assessment and Plan Assessment: Impression: Right breast core biopsy intraductal papilloma Palpable right breast mass may not be the same thing which was sampled Fibrocystic breast changes bilateral Hypertension Diabetes Fungal infection to both breasts patient has treated this Macromastia causing shoulder notching and back pain Plan: Localization excisional lumpectomy right breast intraductal papilloma Excision of palpable mass right breast Patient would like this to be done through a reduction mammoplasty approach This would make the patient very asymmetric, we must be given clearance for bilateral reduction mammoplasty before proceeding with excision on the right side CC: Dr. Bhagat
== END ==
LOC: WWCWWP 15:06
PROVIDERS: ATTEND Surgery
DX: D24.1 Benign neoplasm of right breast (principal); N60.11 Diffuse cystic mastopathy of right breast; N60.12 Diffuse cystic mastopathy of left breast; I10 Essential (primary) hypertension; E11.9 Type 2 diabetes mellitus without complications; N62 Hypertrophy of breast; N63.0 Unspecified lump in unspecified breast; B36.8 Other specified superficial mycoses

== ENCOUNTER → 2021-04-05 | Outpatient (CLI) | payer MEDICARE ==
[2021-04-05 09:50] VITALS: BP 159/85; PULSE 71; RESP 19; TEMP 98.1
--- NOTE | 2021-04-05 10:02 | P.PN ---
Progress Note - Text Progress Note Date: 04/05/21 Patient was noted to have a palpable area of concern in the lateral approximately 9:00 area of the right breast. This was not believed to be the area which had been sampled by the ultrasound core biopsy. A core biopsy of palpable lesion in the office is recommended. Following obtaining informed consent the area of concern in the right breast was prepped using Betadine. 5 mL of 1% lidocaine was used to anesthetize the area of concern. A 15 blade was used to make a small gerard in the skin. An 18-gauge Bard core biopsy needle was inserted to the area of concern. 3 samples were obtained. The palpable abnormality seemed to dissipate. The patient tolerated the procedure in stable condition. She will follow-up next week for results. We are waiting for the answer from the insurance company as to whether we can remove an intraductal papilloma in the right breast reduction mammoplasty incision. The patient understands will be seen next week and surgery will be scheduled for removal of intraductal papilloma. CC: Dr. Bhaagt
== END ==
LOC: EDSTATUS 09:20 → RADUSWWP 09:21 → WWCBREAST 09:21
PROVIDERS: ATTEND Surgery
DX: D24.1 Benign neoplasm of right breast (principal); Z98.890 Other specified postprocedural states

== ENCOUNTER → 2021-04-11 | Outpatient (CLI) | payer MEDICARE ==
[2021-04-11 15:25] VITALS: BP 135/75; PULSE 62; RESP 17; TEMP 97.8
--- NOTE | 2021-04-11 15:45 | P.PN ---
Progress Note - Text Progress Note Date: 04/11/21 ntraductal papilloma right breast Eboni is a 70 year old female seen in consultation for Dr. Bhagat regarding the radiographic abnormality in the right breast. She had bilateral screening mammogram performed on [id number]. An ultrasound of the right breast was recommended. This revealed a lesion in the middle posterior position of the right breast for which an ultrasound core biopsy was recommended. The patient is able to feel a lesion in her right breast for about one month. It is not tender. It has not changed in size. She has not had any recent trauma or infection in either breast. She has had an on open biopsy and a stero-biopsy of hte breast in the past. She does not recall which side. Niether were cancer. Is not complaining of any nipple discharge or skin changes. She is not complaining of any pain in her breasts. 03-05-21 core biopsy of the right breast benign intraductal papilloma; she tolerated the biopsy without difficulty She had a core biopsy of palpable right breast mass 04-05-21, findings were benign breast tissue. Impression: Intraductal papilloma right breast Palpable change right breast appears to be benign breast tissue Plan: Removal intraductal papilloma right breast method whether it be via reduction mammoplasty or needle local excisional lumpectomy are still being determined. CC: Dr. Bhagat
== END ==
LOC: WWCWWP 15:09
PROVIDERS: ATTEND Surgery
DX: D24.1 Benign neoplasm of right breast (principal)

== ENCOUNTER → 2021-04-24 | Outpatient (CLI) | payer MEDICARE ==
[2021-04-24 15:32] LABS: Basophils # (A) 0.02 X 10*3/uL (0.00-0.10); Basophils % (A) 0.4 %; Eosinophils # (A) 0.19 X 10*3/uL (0.04-0.35); Eosinophils % (A) 3.5 %; HCT 38.9 % (37.2-46.3); HGB 12.4 g/dL (12.0-15.0); Immature Grans, Automated 0.2 %; Lymphocytes # (A) 1.17 X 10*3/uL (0.90-5.00); Lymphocytes % (A) 21.8 %; MCH 28.9 pg (27.0-32.0); MCHC 31.9 g/dL (32.0-37.0); MCV 90.7 fL (80.0-97.0); Mean Platelet Volume 10.5 fL (9.5-12.2); Monocytes # (A) 0.51 X 10*3/uL (0.20-1.00); Monocytes % (A) 9.5 %; NRBC Per 100 WBC 0 /100 WBCS (0.0-0.0); Neutrophils # (A) 3.47 X 10*3/uL (1.80-7.70); Neutrophils % (A) 64.6 %; Platelet Count 260 X 10*3/uL (140-440); RBC 4.29 X 10*6/uL (4.10-5.20); RDW 13.2 % (11.5-14.5); WBC 5.37 X 10*3/uL (4.50-10.00)
[2021-04-24 16:07] LABS: ALT 22 U/L (8-44); AST 26 U/L (13-35); African American GFR (CKD) 75.1 (60.0-200.0); Alkaline Phosphatase 102 U/L (41-126); BUN/Creat Ratio 21.78 Ratio (12.00-20.00); Blood Urea Nitrogen 19.6 mg/dL (9.0-27.0); Calcium 9.3 mg/dL (8.7-10.3); Carbon Dioxide 25.7 mmol/L (20.0-27.5); Chloride 101 mmol/L (96-109); Chol/HDL Ratio 2.87 Ratio; Creatine Kinase 120 U/L (26-186); Globulin 2.5 g/dL (1.6-3.3); Glucose 166 mg/dL (70-110); LDL Cholesterol,Calculated 82.2 mg/dL (0.0-131.0); Non-African American GFR(CKD) 64.8 (60.0-200.0); Potassium 3.7 mmol/L (3.5-5.5); Sodium 140 mmol/L (135-145); Total Protein 6.5 g/dL (6.2-8.2); VLDL Calculation 18.78 mg/dL (5.00-40.00)
== END | disposition home or self-care (01) ==
LOC: LABWHC1 09:30
PROVIDERS: ATTEND Family Medicine
DX: I10 Essential (primary) hypertension (principal); E78.5 Hyperlipidemia, unspecified; E11.65 Type 2 diabetes mellitus with hyperglycemia; R00.1 Bradycardia, unspecified
CPT/HCPCS: 36415; 80053; 80061; 82043; 82550; 82570; 83036; 84443; 85025

== ENCOUNTER 2021-05-09 20:08 | Observation (INO) | payer MEDICARE ==
--- NOTE | 2021-05-10 00:20 | CT ---
EXAMINATION TYPE: CT brain cspine wo con DATE OF EXAM: 05/10/2021 COMPARISON: 07/27/2019 CT brain HISTORY: fall/head injury CT DLP: 1567.7 mGycm Automated exposure control for dose reduction was used. Images of the brain and cervical spine obtained without contrast. Ventricles have normal size. There is no mass effect or midline shift. There is no sign of intracrani al hemorrhage. Calvarium is intact. There is normal aeration of the mastoids sinuses. The cervical vertebra have normal alignment. Disc spaces are fairly normal. There is no compression f racture. Posterior elements are intact. Facet joints are intact. IMPRESSION: Negative CT scan of the brain. No change. Negative CT scan of the cervical spine. Minor facet arthropathy. No fracture.
[2021-05-10] MEDS ORDERED: ACETAMINOPHEN TAB 500 MG TAB PO STA (00:37)
--- NOTE | 2021-05-10 00:50 | ED ---
Fall HPI - General Chief Complaint: Fall Stated Complaint: Fall-Head injury Time Seen by Provider: 05/09/21 23:29 Source: patient, RN notes reviewed Mode of arrival: ambulatory - History of Present Illness Initial Comments: Patient states that she has had some recent changes with her insulin dosages and she states that about every day for the past 2 weeks she has had hypoglycemic episodes. Patient states she went to get this morning at about 9 AM and was shaky. Patient states she fell and struck her left temporal area on a desk in her room. She does recall the injury and states she was not knocked unconscious. She is not on any anticoagulant medication. Patient has had no vomiting but has had a headache all day. Patient states that her blood sugar was in the low 60s when this happened. Patient called her regular physician and was instructed to come here for evaluation. Patient denying any other injuries. She states she feels "groggy. "Also feeling fatigued and weak. no fever or chills, no changes in vision or hearing, no sore throat or difficulty with speech, no neck pain, no chest pain or shortness of breath, no abdominal pain, no nausea or vomiting, no changes in urination or bowel movements, no numbness or tingling, no extremity pain, no skin rashes or lesions. Shakiness, hypoglycemic episodes MD Complaint: fall - Related Data Home Medications Medication Instructions Recorded Confirmed Cholecalciferol [Vitamin D3 (25 10,000 unit PO DAILY 11/02/13 05/09/21 Mcg = 1000 Iu)] Metoprolol Succinate [Toprol XL] 50 mg PO QAM 11/02/13 05/09/21 hydroCHLOROthiazide [Hydrodiuril] 25 mg PO DAILY 11/02/13 05/09/21 Multivitamins, Thera [Multivitamin 1 tab PO DAILY 08/17/14 05/09/21 (formulary)] Vitamin A (10,000 Bn=3204 Mcg) 10,000 unit PO DAILY 04/04/16 05/09/21 Omeprazole 20 mg PO DAILY 07/07/18 05/09/21 Optisource 1 tab PO DAILY 07/07/18 05/09/21 Venlafaxine HCl ER [Effexor XR] 75 mg PO DAILY 07/07/18 05/09/21 Mirabegron [Myrbetriq] 25 mg PO DAILY 02/28/21 05/09/21 Repaglinide [Prandin] 2 mg PO TID 02/28/21 05/09/21 busPIRone HCL 10 mg PO BID 02/28/21 05/09/21 Pioglitazone [Actos] 15 mg PO DAILY 03/05/21 05/09/21 Semaglutide [Rybelsus] 14 mg PO DAILY 03/05/21 05/09/21 Insulin Glargine,Hum.rec.anlog 15 unit SQ DAILY 05/09/21 05/09/21 [Basaglar Kwikpen U-100] Losartan/Hydrochlorothiazide 25 mg PO DAILY 05/09/21 05/09/21 [Losartan-Hctz 100-25 mg Tab] Previous Rx's Medication Instructions Recorded Simvastatin [Zocor] 20 mg PO HS #90 tab 05/16/15 Zinc Gluconate [Zinc] 50 mg PO DAILY@1200 #60 tablet 06/06/15 Allergies Allergy/AdvReac Type Severity Reaction Status Date / Time No Known Allergies Allergy Verified 05/09/21 13:40 Review of Systems ROS Statement: Those systems with pertinent positive or pertinent negative responses have been documented in the HPI. ROS Other: All systems not noted in ROS Statement are negative. Past Medical History Past Medical History: Diabetes Mellitus, GERD/Reflux, Hyperlipidemia, Hypertension, Osteoarthritis (OA) Additional Past Medical History / Comment(s): PREV HX OF SLEEP APNEA, NO LONGER NEEDS CPAP, PREVIOUS HX OF DIABETES, History of Any Multi-Drug Resistant Organisms: None Reported Past Surgical History: Bariatric Surgery, Bowel Resection, Section, Cholecystectomy, Joint Replacement, Orthopedic Surgery Additional Past Surgical History / Comment(s): Left knee replacement, EGD, BILATERAL CATARACT SURGERY, BREAST BX (PT UNSURE OF SIDE),3 PRECIOUS-EN-Y, bowel resection 04/12/15, feeding tube replaced 04/13/15, G TUBE REMOVED, bladder sling Past Anesthesia/Blood Transfusion Reactions: No Reported Reaction Past Psychological History: No Psychological Hx Reported Smoking Status: Never smoker Past Alcohol Use History: None Reported Past Drug Use History: None Reported - Past Family History Mother Family Medical History: Cancer Additional Family Medical History / Comment(s): uterine Father Family Medical History: Cancer Additional Family Medical History / Comment(s): PANCREATIC General Exam - General Exam Comments Initial Comments: Cranial nerves II through XII are intact. Patient has notable contusion with a abrasion to the left temporal area with some tenderness to this area. Jose Coma Scale is 15. Limitations: no limitations General appearance: alert, in no apparent distress Head exam: Present: other (Left temporal contusion/abrasion, surrounding tenderness, normocephalic/atraumatic otherwise) Eye exam: Present: normal appearance, PERRL, EOMI. Absent: scleral icterus, conjunctival injection, periorbital swelling ENT exam: Present: normal exam, normal oropharynx, mucous membranes moist, TM's normal bilaterally, normal external ear exam. Absent: mucous membranes dry Neck exam: Present: normal inspection. Absent: tenderness, meningismus, lymphadenopathy Respiratory exam: Present: normal lung sounds bilaterally. Absent: respiratory distress, wheezes, rales, rhonchi, stridor Cardiovascular Exam: Present: regular rate, normal rhythm, normal heart sounds. Absent: systolic murmur, diastolic murmur, rubs, gallop, clicks GI/Abdominal exam: Present: soft, normal bowel sounds. Absent: distended, tenderness, guarding, rebound, rigid Extremities exam: Present: normal inspection, full ROM, normal capillary refill. Absent: tenderness, pedal edema, joint swelling, calf tenderness Back exam: Present: normal inspection Neurological exam: Present: alert, oriented X3, CN II-XII intact, other. Absent: altered, motor sensory deficit Psychiatric exam: Present: normal affect, normal mood Skin exam: Present: warm, dry, intact, normal color. Absent: rash Course Vital Signs 05/09/21 21:13 Temperature 98.1 F Pulse Rate 66 Respiratory 20 Rate Blood Pressure 153/90 O2 Sat by Pulse 98 Oximetry Medical Decision Making - Medical Decision Making Patient has had multiple falls over the past 2 weeks due to what she is seeing her multiple hypoglycemic episodes. Patient states she gets jittery and her sugars are dropping into the 50s and 60s. Patient fell today and struck her head on a dresser in her room. There was no loss of consciousness. Wound was to the left temporal area. Patient also found to have urinary tract infection. I'm going to admit the patient for observation. Case discussed in detail with the hospitalist physician. The case was discussed in detail with ED attending physician. Presentation, findings, treatment plan discussed in detail. - Lab Data Result diagrams: 05/10/21 00:37 05/10/21 00:37 Lab Results 05/09/21 05/10/21 05/10/21 Range/Units 23:18 00:37 00:37 WBC 6.9 (3.8-10.6) k/uL RBC 4.44 (3.80-5.40) m/uL Hgb 13.7 (11.4-16.0) gm/dL Hct 40.4 (34.0-46.0) % MCV 90.9 (80.0-100.0) fL MCH 30.9 (25.0-35.0) pg MCHC 34.0 (31.0-37.0) g/dL RDW 13.9 (11.5-15.5) % Plt Count 298 (150-450) k/uL MPV 7.2 Neutrophils % 65 % Lymphocytes % 24 % Monocytes % 6 % Eosinophils % 2 % Basophils % 0 % Neutrophils # 4.5 (1.3-7.7) k/uL Lymphocytes # 1.6 (1.0-4.8) k/uL Monocytes # 0.4 (0-1.0) k/uL Eosinophils # 0.1 (0-0.7) k/uL Basophils # 0.0 (0-0.2) k/uL Sodium 140 (137-145) mmol/L Potassium 3.6 (3.5-5.1) mmol/L Chloride 102 (98-107) mmol/L Carbon Dioxide 32 H (22-30) mmol/L Anion Gap 6 mmol/L BUN 23 H (7-17) mg/dL Creatinine 0.86 (0.52-1.04) mg/dL Est GFR (CKD-EPI)AfAm 80 (>60 ml/min/1.73 sqM) Est GFR (CKD-EPI)NonAf 69 (>60 ml/min/1.73 sqM) Glucose 94 (74-99) mg/dL Calcium 9.4 (8.4-10.2) mg/dL Total Bilirubin 0.7 (0.2-1.3) mg/dL AST 49 H (14-36) U/L ALT 33 (4-34) U/L Alkaline Phosphatase 142 H (38-126) U/L Troponin I (0.000-0.034) ng/mL Total Protein 7.5 (6.3-8.2) g/dL Albumin 4.3 (3.5-5.0) g/dL Lipase 107 (23-300) U/L Urine Color Yellow Urine Appearance Cloudy H (Clear) Urine pH 5.0 (5.0-8.0) Ur Specific [place] 1.025 (1.001-1.035) Urine Protein Trace H (Negative) Urine Glucose (UA) Negative (Negative) Urine Ketones Negative (Negative) Urine Blood Negative (Negative) Urine Nitrite Positive H (Negative) Urine Bilirubin Negative (Negative) Urine Urobilinogen <2.0 (<2.0) mg/dL Ur Leukocyte Esterase Small H (Negative) Urine RBC 1 (0-5) /hpf Urine WBC 31 H (0-5) /hpf Ur Squamous Epith Cells 3 (0-4) /hpf Urine Bacteria Moderate H (None) /hpf Hyaline Casts 1 (0-2) /lpf Urine Mucus Rare H (None) /hpf 05/10/21 Range/Units 00:37 WBC (3.8-10.6) k/uL RBC (3.80-5.40) m/uL Hgb (11.4-16.0) gm/dL Hct (34.0-46.0) % MCV (80.0-100.0) fL MCH (25.0-35.0) pg MCHC (31.0-37.0) g/dL RDW (11.5-15.5) % Plt Count (150-450) k/uL MPV Neutrophils % % Lymphocytes % % Monocytes % % Eosinophils % % Basophils % % Neutrophils # (1.3-7.7) k/uL Lymphocytes # (1.0-4.8) k/uL Monocytes # (0-1.0) k/uL Eosinophils # (0-0.7) k/uL Basophils # (0-0.2) k/uL Sodium (137-145) mmol/L Potassium (3.5-5.1) mmol/L Chloride (98-107) mmol/L Carbon Dioxide (22-30) mmol/L Anion Gap mmol/L BUN (7-17) mg/dL Creatinine (0.52-1.04) mg/dL Est GFR (CKD-EPI)AfAm (>60 ml/min/1.73 sqM) Est GFR (CKD-EPI)NonAf (>60 ml/min/1.73 sqM) Glucose (74-99) mg/dL Calcium (8.4-10.2) mg/dL Total Bilirubin (0.2-1.3) mg/dL AST (14-36) U/L ALT (4-34) U/L Alkaline Phosphatase (38-126) U/L Troponin I <0.012 (0.000-0.034) ng/mL Total Protein (6.3-8.2) g/dL Albumin (3.5-5.0) g/dL Lipase (23-300) U/L Urine Color Urine Appearance (Clear) Urine pH (5.0-8.0) Ur Specific [place] (1.001-1.035) Urine Protein (Negative) Urine Glucose (UA) (Negative) Urine Ketones (Negative) Urine Blood (Negative) Urine Nitrite (Negative) Urine Bilirubin (Negative) Urine Urobilinogen (<2.0) mg/dL Ur Leukocyte Esterase (Negative) Urine RBC (0-5) /hpf Urine WBC (0-5) /hpf Ur Squamous Epith Cells (0-4) /hpf Urine Bacteria (None) /hpf Hyaline Casts (0-2) /lpf Urine Mucus (None) /hpf - EKG Data EKG Comments: EKG done at 1:23 AM and read by the ED attending physician reveals baseline artifact, left axis deviation, IL interval 212 ms, first-degree AV block, poor R-wave progression. No evidence of acute pathology. - Radiology Data Radiology results: image reviewed Disposition Clinical Impression: Fall, Closed head injury, Multiple episodes of hypoglycemia, Urinary tract infection Disposition: ADMITTED IP TO THIS [facility] Referrals: Leah Bhagat MD [Primary Care Provider] - 1-2 days Time of Disposition: 02:25
--- NOTE | 2021-05-10 01:07 | XR ---
EXAMINATION TYPE: XR chest 1V portable DATE OF EXAM: 05/10/2021 COMPARISON: 11/09/2020 HISTORY: Abdominal pain TECHNIQUE: FINDINGS: Heart and mediastinum are normal. Lungs are clear. The diaphragm is normal. Bony thorax cyndy ears intact. IMPRESSION: No active cardiopulmonary disease. No adverse change.
[2021-05-10 01:42] LABS: Basophils % (A) 0 %; Eosinophils # (A) 0.1 k/uL (0-0.7); Eosinophils % (A) 2 %; HCT 40.4 % (34.0-46.0); HGB 13.7 gm/dL (11.4-16.0); Lymphocytes # (A) 1.6 k/uL (1.0-4.8); Lymphocytes % (A) 24 %; MCH 30.9 pg (25.0-35.0); MCV 90.9 fL (80.0-100.0); Mean Platelet Volume 7.2; Monocytes # (A) 0.4 k/uL (0-1.0); Monocytes % (A) 6 %; Neutrophils # (A) 4.5 k/uL (1.3-7.7); Neutrophils % (A) 65 %; Platelet Count 298 k/uL (150-450); RBC 4.44 m/uL (3.80-5.40); RDW 13.9 % (11.5-15.5); WBC 6.9 k/uL (3.8-10.6)
[2021-05-10 01:53] LABS: Appearance,Urine Cloudy (Clear); Bacteria,Urine Moderate /hpf; Bilirubin,Urine Negative (Negative); Blood,Urine Negative (Negative); Color,Urine Yellow; Glucose,Urine (UA) Negative (Negative); Hyaline Casts,Urine 1 /lpf (0-2); Ketones,Urine Negative (Negative); Leukocyte Esterase,Urine Small (Negative); Mucus,Urine Rare /hpf; Nitrite,Urine Positive (Negative); Protein,Urine Trace (Negative); RBC,Urine 1 /hpf (0-5); Specific Gravity,Urine 1.025 (1.001-1.035); Squamous Epithelial Cell,Urine 3 /hpf (0-4); Urobilinogen,Urine <2.0 mg/dL (<2.0); WBC,Urine 31 /hpf (0-5)
[2021-05-10 01:54] LABS: Albumin 4.3 g/dL (3.5-5.0); Calcium 9.4 mg/dL (8.4-10.2); Potassium 3.6 mmol/L (3.5-5.1); Total Bilirubin 0.7 mg/dL (0.2-1.3); Total Protein 7.5 g/dL (6.3-8.2)
[2021-05-10] MEDS ORDERED: CEFDINIR 300 MG CAP PO STA (02:23)
[2021-05-10] MEDS ORDERED: SODIUM CHLORIDE 0.9% 1,000 ML IV STA (02:39)
[2021-05-10] MEDS ORDERED: ACETAMINOPHEN TAB 325 MG TAB PO PRN (02:47)
[2021-05-10] MEDS ORDERED: ONDANSETRON 4 MG/2 ML VIAL IVP PRN (02:47)
[2021-05-10] MEDS ORDERED: NALOXONE 0.4 MG/ML 1 ML VIAL IV PRN (02:47)
--- NOTE | 2021-05-10 03:54 | P.HPIM ---
History of Present Illness H&P Date: 05/10/21 Chief Complaint: Fall 70-year-old female with hypertension and diabetes mellitus. She comes in after sustaining a fall at home that has happened this morning. She reports multiple falls over the past 2 weeks which is new to her, she doesn't use any devices to help her with ambulation however occasionally she would feel that her feet are weak or she is not lifting them and also admits she trips and falls however today she was feeling fatigued and tired shaky and had a fall where she hit her head on the side of the table. She denies any syncopal episodes with all her falling she denies any passing out or any serious injuries. She denies any postural dizziness or lightheadedness denies any shortness of breath chest pain or palpitations. Today when she had this fall and hitting the side table she checked her blood sugar and was in the 60s. She didn't think much of it however she had the appointment with her doctor today who recommended that she comes to the hospital for evaluation. The fall happened at 9 in the morning patient presented late that night. Patient reports that normally her blood sugar is high if anything. She denies any changes in her medications or dosage. She denies taking any new [id number] substances. She denies any smoking drugs or alcohol. She is on multiple blood sugar medications. She recalls bariatric surgery gastric bypass 7 years ago. Otherwise she describes her health as good Workup in the ED overall was pretty much unremarkable CAT scan of the head showed no acute pathology Urinalysis was positive however she denies any dysuria or hematuria or frequency. or urgency. She denies any abdominal pain nausea vomiting Review of Systems Pertinent positives as noted in HPI. All other systems were reviewed and are negative Past Medical History Past Medical History: Diabetes Mellitus, GERD/Reflux, Hyperlipidemia, Hypertension, Osteoarthritis (OA) Additional Past Medical History / Comment(s): PREV HX OF SLEEP APNEA, NO LONGER NEEDS CPAP, PREVIOUS HX OF DIABETES, History of Any Multi-Drug Resistant Organisms: None Reported Past Surgical History: Bariatric Surgery, Bowel Resection, Section, Cholecystectomy, Joint Replacement, Orthopedic Surgery Additional Past Surgical History / Comment(s): Left knee replacement, EGD, BILATERAL CATARACT SURGERY, BREAST BX (PT UNSURE OF SIDE),04-24-14 PRECIOUS-EN-Y, bowel resection 04/12/15, feeding tube replaced 04/13/15, G TUBE REMOVED, bladder sling Past Anesthesia/Blood Transfusion Reactions: No Reported Reaction Past Psychological History: No Psychological Hx Reported Smoking Status: Never smoker Past Alcohol Use History: None Reported Past Drug Use History: None Reported - Past Family History Mother Family Medical History: Cancer Additional Family Medical History / Comment(s): uterine Father Family Medical History: Cancer Additional Family Medical History / Comment(s): PANCREATIC Medications and Allergies Home Medications Medication Instructions Recorded Confirmed Type Cholecalciferol [Vitamin D3 (25 10,000 unit PO DAILY 11/02/13 05/09/21 History Mcg = 1000 Iu)] Metoprolol Succinate [Toprol XL] 50 mg PO QAM 11/02/13 05/09/21 History hydroCHLOROthiazide [Hydrodiuril] 25 mg PO DAILY 11/02/13 05/09/21 History Multivitamins, Thera [Multivitamin 1 tab PO DAILY 08/17/14 05/09/21 History (formulary)] Simvastatin [Zocor] 20 mg PO HS #90 tab 05/16/15 05/09/21 Rx Zinc Gluconate [Zinc] 50 mg PO DAILY@1200 #60 tablet 06/06/15 05/09/21 Rx Vitamin A (10,000 Sj=7780 Mcg) 10,000 unit PO DAILY 04/04/16 05/09/21 History Omeprazole 20 mg PO DAILY 07/07/18 05/09/21 History Optisource 1 tab PO DAILY 07/07/18 05/09/21 History Venlafaxine HCl ER [Effexor XR] 75 mg PO DAILY 07/07/18 05/09/21 History Mirabegron [Myrbetriq] 25 mg PO DAILY 02/28/21 05/09/21 History Repaglinide [Prandin] 2 mg PO TID 02/28/21 05/09/21 History busPIRone HCL 10 mg PO BID 02/28/21 05/09/21 History Pioglitazone [Actos] 15 mg PO DAILY 03/05/21 05/09/21 History Semaglutide [Rybelsus] 14 mg PO DAILY 03/05/21 05/09/21 History Insulin Glargine,Hum.rec.anlog 15 unit SQ DAILY 05/09/21 05/09/21 History [Basaglar Kwikpen U-100] Losartan/Hydrochlorothiazide 25 mg PO DAILY 05/09/21 05/09/21 History [Losartan-Hctz 100-25 mg Tab] Allergies Allergy/AdvReac Type Severity Reaction Status Date / Time No Known Allergies Allergy Verified 05/09/21 13:40 Physical Exam Vitals: Vital Signs Temp Pulse Resp BP Pulse Ox 05/09/21 21:13 98.1 F 66 20 153/90 98 Intake and Output 05/09/21 05/09/21 05/10/21 14:59 22:59 06:59 Other: Weight 90.718 kg Constitutional: No acute distress, conversant, pleasant Eyes: Anicteric sclerae, moist conjunctiva, Pupils equal round reactive to light ENMT: NC/AT Oropharynx clear, no erythema, or exudates Neck: Supple, no masses, or JVD No carotid bruits No thyromegaly Lungs: Clear to auscultation Clear to percussion Normal respiratory effort, no accessory muscle use Cardiovascular: Heart regular in rate and rhythm, No murmurs, gallops, or rubs No peripheral edema Abdominal: Soft Nontender, no guarding, rebound or rigidity Abdomen moving with respiration Normoactive bowel sounds No hepatomegaly, No splenomegaly No palpable mass No abdominal wall hernia noted Skin: Normal temperature, tone, texture, turgor No induration No subcutaneous nodules No rash, lesions No ulcers Extremities: No digital cyanosis No clubbing Pedal pulses intact and symmetrical Radial pulses intact and symmetrical No calf tenderness Psychiatric: Alert and oriented to person, place and time Appropriate affect fair judgement Neuro Muscles Strength 5/5 in all 4 extremities Sensation to light touch grossly present throughout Cranial nerves II-XII grossly intact No focal sensory deficits Lymphatics: no palpable cervical or supraclavicular , or inguinal lymph nodes Results CBC & Chem 7: 05/10/21 00:37 05/10/21 00:37 Labs: Abnormal Lab Results - Last 24 Hours (Table) 05/09/21 05/10/21 Range/Units 23:18 00:37 Carbon Dioxide 32 H (22-30) mmol/L BUN 23 H (7-17) mg/dL AST 49 H (14-36) U/L Alkaline Phosphatase 142 H (38-126) U/L Urine Appearance Cloudy H (Clear) Urine Protein Trace H (Negative) Urine Nitrite Positive H (Negative) Ur Leukocyte Esterase Small H (Negative) Urine WBC 31 H (0-5) /hpf Urine Bacteria Moderate H (None) /hpf Urine Mucus Rare H (None) /hpf Assessment and Plan Assessment: Hypoglycemia Frequent falls at home Fall precautions PT eval Check vitamin D her 25-hydroxy , vitamin B12, folic acid Monitor blood sugar Check orthostatic vitals Diabetes mellitus Hold oral hypoglycemic agents Insulin sliding scale Hypertension Continue with home blood pressure medications Fall precautions PT eval Monitor blood sugar Orthostatic vitals Anticipated length of stay less than 2 midnights Full code DVT prophylaxis mechanical
[2021-05-10] MEDS ORDERED: PANTOPRAZOLE 40 MG TABLET PO SCH (07:30)
[2021-05-10 08:08] LABS: Glucose,Whole Blood 162 mg/dL (75-99)
[2021-05-10 08:23] VITALS: BP 154/78; PULSE 67; RESP 18; TEMP 97.6
[2021-05-10] MEDS: INSULIN ASPART (NovoLOG) 100 UNIT/ML VIAL SQ SCH ×3 (08:34→14:11)
[2021-05-10] MEDS ORDERED: LOSARTAN-HCTZ 50-12.5 MG 1 EACH TAB PO SCH (09:00)
[2021-05-10] MEDS ORDERED: VENLAFAXINE HCL ER 75 MG CAP PO SCH (09:00)
[2021-05-10] MEDS ORDERED: busPIRone HCl 10 MG TAB PO SCH (09:00)
[2021-05-10] MEDS ORDERED: METOPROLOL SUCCINATE (ER) 50 MG TAB.ER.24H PO SCH (09:00)
[2021-05-10 11:53] LABS: Glucose,Whole Blood 98 mg/dL (75-99)
--- NOTE | 2021-05-10 15:27 | P.DS ---
Providers Date of admission: 05/10/21 02:49 Expected date of discharge: 05/10/21 Attending physician: Yahaira Preston MD Primary care physician: [facility] Course: 70-year-old female with hypertension and diabetes mellitus presented after sustaining a fall at home. Today when she had this fall and hitting the side table she checked her blood sugar and was in the 60s. Workup in the ED overall was pretty much unremarkable CAT scan of the head showed no acute pathology. CXR did not show active cardiopulmonary disease. No events noted on telemetry. Urinalysis was positive. Hypoglycemia Diabetes mellitus Frequent falls at home -decreased patients home levemir from 15 to 7U Daily Positive Orthostatic vitals -IVF, d/c'd HCTZ on discharge Hypertension Continued with home blood pressure medications except as noted above, recommend outpatient follow up Gen: awake, alert HEENT: normocephalic, atraumatic, good hearing acuity, moist mucous membranes Resp: good air exchange, breathing comfortably with no accessory muscle use CVS: good distal perfusion x 4, GI: soft, NTTP, ND : no SPT, no CVAT, huynh catheter not present MSK: no pitting edema, no clubbing Neuro: non-focal, moving all extremities Psych: cooperative, euthymic mood Patient Condition at Discharge: Good Plan - Discharge Summary Discharge Rx Participant: No New Discharge Prescriptions: New Cefdinir [Omnicef] 300 mg PO 0600,1800 #8 cap Continue Metoprolol Succinate [Toprol XL] 50 mg PO QAM Multivitamins, Thera [Multivitamin (formulary)] 1 tab PO DAILY Simvastatin [Zocor] 20 mg PO HS #90 tab Vitamin A (10,000 Eh=6184 Mcg) 10,000 unit PO DAILY Omeprazole 20 mg PO DAILY busPIRone HCL 10 mg PO BID Semaglutide [Rybelsus] 14 mg PO DAILY Venlafaxine HCl [Effexor XR] 150 mg PO DAILY Vit C/E/Zn/Coppr/Lutein/Zeaxan [Preservision Areds 2 Softgel] 2 cap PO DAILY Magnesium 250 mg PO DAILY Naproxen 375 mg PO BID PRN PRN Reason: Pain Mirabegron [Myrbetriq] 25 mg PO DAILY Repaglinide [Prandin] 4 mg PO AC-TID Losartan/Hydrochlorothiazide [Losartan-Hctz 100-25 mg Tab] 1 tab PO DAILY ALPRAZolam [Xanax] 0.25 mg PO BID PRN PRN Reason: Anxiety Pioglitazone [Actos] 30 mg PO DAILY Cholecalciferol [Vitamin D3 (125 Mcg = 5000 Iu)] 250 mcg PO DAILY Cyanocobalamin [Vitamin B-12] 500 mcg PO DAILY Zinc Gluconate [Zinc] 50 mg PO DAILY Changed Insulin Glargine,Hum.rec.anlog [Basaglar Kwikpen U-100] 7 unit SQ DAILY #0 Discontinued hydroCHLOROthiazide [Hydrodiuril] 25 mg PO DAILY Discharge Medication List Metoprolol Succinate [Toprol XL] 50 mg PO QAM 11/02/13 [History] Multivitamins, Thera [Multivitamin (formulary)] 1 tab PO DAILY 08/17/14 [History] Simvastatin [Zocor] 20 mg PO HS #90 tab 05/16/15 [Rx] Vitamin A (10,000 Us=5785 Mcg) 10,000 unit PO DAILY 04/04/16 [History] Omeprazole 20 mg PO DAILY 07/07/18 [History] Mirabegron [Myrbetriq] 25 mg PO DAILY 02/28/21 [History] Repaglinide [Prandin] 4 mg PO AC-TID 02/28/21 [History] busPIRone HCL 10 mg PO BID 02/28/21 [History] Semaglutide [Rybelsus] 14 mg PO DAILY 03/05/21 [History] Losartan/Hydrochlorothiazide [Losartan-Hctz 100-25 mg Tab] 1 tab PO DAILY 05/09/21 [History] ALPRAZolam [Xanax] 0.25 mg PO BID PRN 05/10/21 [History] Cefdinir [Omnicef] 300 mg PO 0600,1800 #8 cap 05/10/21 [Rx] Cholecalciferol [Vitamin D3 (125 Mcg = 5000 Iu)] 250 mcg PO DAILY 05/10/21 [History] Cyanocobalamin [Vitamin B-12] 500 mcg PO DAILY 05/10/21 [History] Insulin Glargine,Hum.rec.anlog [Basaglar Kwikpen U-100] 7 unit SQ DAILY #0 05/10/21 [Rx] Magnesium 250 mg PO DAILY 05/10/21 [History] Naproxen 375 mg PO BID PRN 05/10/21 [History] Pioglitazone [Actos] 30 mg PO DAILY 05/10/21 [History] Venlafaxine HCl [Effexor XR] 150 mg PO DAILY 05/10/21 [History] Vit C/E/Zn/Coppr/Lutein/Zeaxan [Preservision Areds 2 Softgel] 2 cap PO DAILY 05/10/21 [History] Zinc Gluconate [Zinc] 50 mg PO DAILY 05/10/21 [History] Follow up Appointment(s)/Referral(s): Leah Bhagat MD [Primary Care Provider] - 1-2 days Patient Instructions/Handouts: Hypoglycemia in a Person with Diabetes (DC), Fall Prevention for Older Adults (DC) Discharge Disposition: HOME SELF-CARE
[2021-05-10] MEDS ORDERED: CEFDINIR 300 MG CAP PO SCH (18:00)
[2021-05-10] MEDS ORDERED: ATORVASTATIN 10 MG TAB PO SCH (21:00)
== END 2021-05-10 14:59 | disposition home or self-care (01) ==
LOC: EC 20:08 → 6NMEDSUR 05-10 02:49
PROVIDERS: ADMIT Internal Medicine; ATTEND Internal Medicine
DX: E11.649 Type 2 diabetes mellitus with hypoglycemia without coma (principal); S00.83XA Contusion of other part of head, initial encounter; N39.0 Urinary tract infection, site not specified; I10 Essential (primary) hypertension; E78.5 Hyperlipidemia, unspecified; K21.9 Gastro-esophageal reflux disease without esophagitis; M19.90 Unspecified osteoarthritis, unspecified site; I44.0 Atrioventricular block, first degree; Z79.899 Other long term (current) drug therapy; Z79.84 Long term (current) use of oral hypoglycemic drugs; Z79.4 Long term (current) use of insulin; R29.6 Repeated falls; Z98.84 Bariatric surgery status; Z90.49 Acquired absence of other specified parts of digestive tract; Z96.652 Presence of left artificial knee joint; Z80.49 Family history of malignant neoplasm of other genital organs; Z80.0 Family history of malignant neoplasm of digestive organs; W22.03XA Walked into furniture, initial encounter; Y92.003 Bedroom of unspecified non-institutional (private) residence as the place of occurrence of the external cause
CPT/HCPCS: 99285; 36415; 93005; 97161; 82747; 80053; 82607; 83690; 84484; 85025; 81001; 82306; 87086; 87077; 87186; 71045; 72125; 70450; G0378

== ENCOUNTER → 2021-05-09 | Outpatient (CLI) | payer MEDICARE ==
[2021-05-09 13:46] VITALS: BP 172/70; PULSE 86; RESP 17; TEMP 97.9
--- NOTE | 2021-05-09 14:13 | P.PN ---
Subjective Progress Note Date: 05/09/21 Principal diagnosis: Intraductal papilloma Eboni is a 70 year old female seen in consultation for Dr. Bhagat regarding the radiographic abnormality in the right breast. She had bilateral screening mammogram performed on [id number]. An ultrasound of the right breast was recommended. This revealed a lesion in the middle posterior position of the right breast for which an ultrasound core biopsy was recommended. The patient is able to feel a lesion in her right breast for about one month. It is not tender. It has not changed in size. She has not had any recent trauma or infection in either breast. She has had an on open biopsy and a stero-biopsy of the breast in the past. She does not recall which side. Neither were cancer. Is not complaining of any nipple discharge or skin changes. She is not complaining of any pain in her breasts. She underwent a right breast ultrasound core biopsy on tissue 182 which was a intraductal papilloma. Caffiene: tea 3 cups/day nicotine: none chocolate: rare BCP: less than 1 year in remote past hormones: none Family history: mother: uterine cancer father: pancreatic cancer Hormonal History: menarche: 15 , breast fed: yes, age at first : 28 menopause: 55 hormones: none Surgical History: bilateral cataracts bladder sling left knee replacement gastric bypass ruptured bypass repaired left knee replacement Medical History: HTN DM Social History: nicotine: none alcohol: none drugs: none - Constitutional Constitutional: Denies chills, Denies fever - EENT Comment: retinal hole left eye Eyes: bilateral as per HPI, denies blurred vision, denies pain Ears: deny: decreased hearing, tinnitus Ears, nose, mouth and throat: Denies headache, Denies sore throat - Breasts Breasts: bilateral: as per HPI - Cardiovascular Cardiovascular: Denies chest pain, Denies shortness of breath - Respiratory Respiratory: Denies cough - Gastrointestinal Gastrointestinal: Reports as per HPI, Denies abdominal pain, Denies diarrhea, Denies nausea, Denies vomiting - Genitourinary (Female) Genitourinary: Denies dysuria, Denies hematuria - Menstruation Menstruation: Reports postmenopausal - Musculoskeletal Comment: arthritis - Integumentary Integumentary: Denies pruritus, Denies rash - Neurological Neurological: Denies numbness, Denies weakness - Psychiatric Psychiatric: Reports depression - Endocrine Endocrine: Denies fatigue, Denies weight change - Hematologic/Lymphatic Comment: none - Allergic/Immunologic Allergic/Immunologic: Reports as per HPI Objective - Vital Signs Vital signs: Vital Signs Temp 97.9 F 05/09/21 13:44 Pulse 86 05/09/21 13:44 Resp 17 05/09/21 13:44 BP 172/70 05/09/21 13:44 Pulse Ox 95 05/09/21 13:44 Intake & Output 05/08/21 05/09/21 05/09/21 18:59 06:59 18:59 Weight 90.718 kg - Exam BMI 29.5 - Constitutional General appearance: Present: cooperative - EENT Eyes: Present: EOMI ENT: Present: hearing grossly normal - Neck Neck: Present: normal ROM - Respiratory Respiratory: bilateral: CTA - Cardiovascular Rhythm: regular Heart sounds: normal: S1, S2 - Gastrointestinal General gastrointestinal: Present: soft - Integumentary Integumentary: Present: normal turgor - Musculoskeletal Musculoskeletal: Present: gait normal - Psychiatric Psychiatric: Present: A&O x's 3, appropriate affect, intact judgment & insight - Additional findings Additional findings: Breast Exam: BRA: 38D inspection: bilateral grade 3 ptosis palpation: right breast: Multiple positional exam fibrocystic changes no dominant masses or nodules of concern Right axilla: No adenopathy of concern Left breast: Multiple positional exam fibrocystic changes no dominant masses or nodules of concern Left axilla: No adenopathy of concern Assessment and Plan Assessment: Impression: Bilateral macromastia Right breast intraductal papilloma Bilateral shoulder notching Chronic back pain Chronic difficulty with fungal infection under her breasts Plan: Bilateral reduction mammoplasty, needle localization excisional lumpectomy intraductal papilloma right breast Risks and benefits of the procedure discussed with the patient. Risks include but are not limited to bleeding, infection, reaction to the anesthetic. She understands and wishes to proceed. She has been given the option seen a plastic surgeon and declined. CC: Dr. Bhagat
== END ==
LOC: WWCWWP 13:33
PROVIDERS: ATTEND Surgery
DX: D24.1 Benign neoplasm of right breast (principal); N62 Hypertrophy of breast; B36.8 Other specified superficial mycoses; I10 Essential (primary) hypertension; E11.9 Type 2 diabetes mellitus without complications

== ENCOUNTER → 2021-06-20 | Outpatient (CLI) | payer MEDICARE ==
[2021-06-20 14:02] VITALS: BP 145/76; PULSE 61; RESP 13; TEMP 98.4
--- NOTE | 2021-06-20 14:07 | P.PN ---
Subjective Progress Note Date: 06/20/21 Principal diagnosis: Intraductal papilloma right breast/bilateral macromastia Intraductal papilloma Eboni is a 70 year old female seen in consultation for Dr. Bhagat regarding the radiographic abnormality in the right breast. She had bilateral screening mammogram performed on [id number]. An ultrasound of the right breast was recommended. This revealed a lesion in the middle posterior position of the right breast for which an ultrasound core biopsy was recommended. The patient is able to feel a lesion in her right breast for about one month. It is not tender. It has not changed in size. She has not had any recent trauma or infection in either breast. She has had an on open biopsy and a stero-biopsy of the breast in the past. She does not recall which side. Neither were cancer. Was not complaining of any nipple discharge or skin changes. She was not complaining of any pain in her breasts. She underwent a right breast ultrasound core biopsy on tissue 1822 which was a intraductal papilloma. She is still able to feel the palpable spot in the right breast where the biopsy was performed which revealed an intraductal papilloma. This was palpable prior to the biopsy. The patient has marked macromastia, she complains of shoulder notching, as well as repeated fungal infections under her breast. Caffiene: tea 3 cups/day nicotine: none chocolate: rare BCP: less than 1 year in remote past hormones: none Family history: mother: uterine cancer father: pancreatic cancer Hormonal History: menarche: 15 , breast fed: yes, age at first : 28 menopause: 55 hormones: none Surgical History: bilateral cataracts bladder sling left knee replacement gastric bypass ruptured bypass repaired left knee replacement Medical History: HTN DM Social History: nicotine: none alcohol: none drugs: none - Constitutional Constitutional: Denies chills, Denies fever - EENT Comment: retinal hole left eye Eyes: bilateral as per HPI, denies blurred vision, denies pain Ears: deny: decreased hearing, tinnitus Ears, nose, mouth and throat: Denies headache, Denies sore throat - Breasts Breasts: bilateral: as per HPI - Cardiovascular Cardiovascular: Denies chest pain, Denies shortness of breath - Respiratory Respiratory: Denies cough - Gastrointestinal Gastrointestinal: Reports as per HPI, Denies abdominal pain, Denies diarrhea, Denies nausea, Denies vomiting - Genitourinary (Female) Genitourinary: Denies dysuria, Denies hematuria - Menstruation Menstruation: Reports postmenopausal - Musculoskeletal Comment: arthritis - Integumentary Integumentary: Denies pruritus, Denies rash - Neurological Neurological: Denies numbness, Denies weakness - Psychiatric Psychiatric: Reports depression - Endocrine Endocrine: Denies fatigue, Denies weight change - Hematologic/Lymphatic Comment: none - Allergic/Immunologic Allergic/Immunologic: Reports as per HPI Objective - Vital Signs Vital signs: Intake & Output 06/19/21 06/20/21 06/20/21 18:59 06:59 18:59 Weight 90.718 kg - Exam BMI 29.5 - Constitutional General appearance: Present: cooperative - EENT Eyes: Present: EOMI ENT: Present: hearing grossly normal - Neck Neck: Present: normal ROM - Respiratory Respiratory: bilateral: CTA - Cardiovascular Rhythm: regular Heart sounds: normal: S1, S2 - Integumentary Integumentary: Present: normal turgor - Musculoskeletal Musculoskeletal: Present: gait normal - Psychiatric Psychiatric: Present: A&O x's 3, appropriate affect, intact judgment & insight - Additional findings Additional findings: Breast Exam: BRA: 38D inspection: bilateral grade 3 ptosis palpation: right breast: Multiple positional exam fibrocystic changes no dominant masses or nodules of concern Right axilla: No adenopathy of concern Left breast: Multiple positional exam fibrocystic changes no dominant masses or nodules of concern Left axilla: No adenopathy of concern Assessment and Plan Assessment: Impression: Bilateral macromastia Right breast intraductal papilloma Bilateral shoulder notching Chronic back pain Chronic difficulty with fungal infection under her breasts She was seen and marked preoperatively to show the patient however the markings would look. Additionally she has a residual palpable mass right breast which will be removed at the time of the needle local resection of the intraductal papilloma as well. This may be one in the same. Plan: Bilateral reduction mammoplasty, needle localization excisional lumpectomy intraductal papilloma right breast; resection of right breast palpable mass pre-op clearance from DR. Bhagat Risks and benefits of the procedure discussed with the patient. Risks include but are not limited to bleeding, infection, reaction to the anesthetic. She understands and wishes to proceed. She has been given the option seen a plastic surgeon and declined.
== END ==
LOC: WWCWWP 13:25
PROVIDERS: ATTEND Surgery
DX: R92.8 Other abnormal and inconclusive findings on diagnostic imaging of breast (principal); D24.1 Benign neoplasm of right breast; E11.36 Type 2 diabetes mellitus with diabetic cataract; N62 Hypertrophy of breast; G89.29 Other chronic pain; I10 Essential (primary) hypertension; B36.8 Other specified superficial mycoses

== ENCOUNTER → 2021-07-11 | Outpatient (CLI) | payer MEDICARE ==
--- NOTE | 2021-07-11 17:33 | P.PN ---
Progress Note - Text Progress Note Date: 07/11/21 Eboni is a 70-year-old white female who is status post bilateral reduction mammoplasty performed on . This was done secondary to the fact the patient had symptomatic bilateral macromastia. The patient however had been noted to have an intraductal papilloma for which needle localization and excision was performed at the time of the mammoplasty. 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 There was however a 6 mm focus of invasion noted in the biopsy specimen. 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 Pathology from both breasts otherwise did not reveal any evidence of malignancy. The patient additionally had 3 skin lesions removed from her chest wall all of which were benign. The patient postoperatively has done well she has had some seroma like drainage from the right drain site and states that the the right drain has not been working. She has no complaints related to the left reduction mammoplasty site. Physical exam: Lungs: Clear Heart: Regular rate and rhythm Incisions bilateral clean and dry There is able to be expressed dark seroma-like fluid at the drain site on the right, and following this the drain was stripped and the drain appears to be working The left drain is putting out approximately 60 mL per day of serous like fluid In the right incision site in the periareolar region medially there is some skin necrosis approximately 1.5 cm x 1 cm in size/it is uncertain if this is full- thickness, the nipple also appears to be somewhat dark The sutures were removed from the skin lesions on the chest wall. The medial lesion did open up and this was reapproximated using nylon suture after consent was obtained from the patient. I had a long discussion with the patient ( 45 minutes) with Rachel Boucher present regarding the pathology findings. 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 Additionally we have talked about the possibility of sentinel node biopsy. The patient is 70 years old and the area of invasion was only 6 mm. We will discuss the need for sentinel node biopsy at tumor Board. Plan: Presentation of case at tumor board Follow-up next week for additional suture removal CC: Dr. Bhagat
== END ==
LOC: WWCWWP 16:29
PROVIDERS: ATTEND Surgery
DX: Z48.817 Encounter for surgical aftercare following surgery on the skin and subcutaneous tissue (principal); D24.1 Benign neoplasm of right breast; N62 Hypertrophy of breast

== ENCOUNTER → 2021-07-16 | Outpatient (CLI) | payer MEDICARE ==
--- NOTE | 2021-07-16 09:24 | P.PN ---
Progress Note - Text Progress Note Date: 07/16/21 Eboni is a 70-year-old white female who is status post bilateral reduction mammoplasty performed on . This was done secondary to the fact the patient had symptomatic bilateral macromastia. The patient however had been noted to have an intraductal papilloma for which needle localization and excision was performed at the time of the mammoplasty. 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 There was however a 6 mm focus of invasion noted in the biopsy specimen. 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 Pathology from both breasts otherwise did not reveal any evidence of malignancy. The patient additionally had 3 skin lesions removed from her chest wall all of which were benign. The patient postoperatively has done well she has had some seroma like drainage from the right which stopped, the drainage was approximately 30 mL per day from the right side, on the left side the drainage is approximately 15 mL per day She has no complaints related to the surgery Physical exam: Lungs: Clear Heart: Regular rate and rhythm Incisions bilateral clean and dry Bilateral drains approximately 30 mL on the right 15 on the left serous in nature In the right incision site in the periareolar region medially there is some skin necrosis approximately 1.5 cm x 1 cm in size/it is uncertain if this is full- thickness, the nipple also appears to be somewhat dark The sutures were removed from the skin lesions on the chest wall. The medial lesion did open up and this was reapproximated using nylon suture after consent was obtained from the patient. The sutures remain on this side. I had a long discussion with the patient ( 45 minutes) with Rachel Boucher present last week regarding the pathology findings. 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 Additionally we have talked about the possibility of sentinel node biopsy. The patient is 70 years old and the area of invasion was only 6 mm. We will discuss the need for se ntinel node biopsy at tumor Board. Plan: Presentation of case at tumor board Both drains removed All sutures removed except for the chest wall suture Patient will follow up after presentation of case at tumor board Most likely resection of the lateral margin right breast CC: Dr. Bhagat
[2021-07-16 10:25] VITALS: BP 149/80; PULSE 62; RESP 16; TEMP 98.1
== END ==
LOC: WWCWWP 08:54
PROVIDERS: ATTEND Surgery
DX: Z09 Encounter for follow-up examination after completed treatment for conditions other than malignant neoplasm (principal); Z98.82 Breast implant status

== ENCOUNTER → 2021-07-25 | Outpatient (CLI) | payer MEDICARE ==
[2021-07-25 12:29] VITALS: BP 136/79; PULSE 83; RESP 17; TEMP 98.3
--- NOTE | 2021-07-25 13:01 | P.PN ---
Progress Note - Text Progress Note Date: 07/25/21 Eboni is a 70-year-old white female who is status post bilateral reduction mammoplasty performed on . This was done secondary to the fact the patient had symptomatic bilateral macromastia. The patient however had been noted to have an intraductal papilloma for which needle localization and excision was performed at the time of the mammoplasty. 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 There was however a 6 mm focus of invasion noted in the biopsy specimen. 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 Pathology from both breasts otherwise did not reveal any evidence of malignancy. The patient additionally had 3 skin lesions removed from her chest wall all of which were benign. She has no complaints related to the surgery Physical exam: Lungs: Clear Heart: Regular rate and rhythm Incisions bilateral clean and dry Approximately 1 x 1 cm area of necrosis in the medial area of the right areolar The only sutures that remain are in the medial chest wall for a skin lesion removal Plan: Remove sutures Presentation of case at tumor board Patient will follow up next week for results of tumor Board discussion CC:
== END ==
LOC: WWCWWP 12:03
PROVIDERS: ATTEND Surgery
DX: Z48.817 Encounter for surgical aftercare following surgery on the skin and subcutaneous tissue (principal); D24.1 Benign neoplasm of right breast

== ENCOUNTER → 2021-08-01 | Outpatient (CLI) | payer MEDICARE ==
[2021-08-01 15:06] VITALS: BP 153/71; PULSE 65; RESP 17; TEMP 98.7
--- NOTE | 2021-08-01 15:40 | P.PN ---
Progress Note - Text Progress Note Date: 08/01/21 Eboni is a 70-year-old white female who is status post bilateral reduction mammoplasty performed on . This was done secondary to the fact the patient had symptomatic bilateral macromastia. The patient however had been noted to have an intraductal papilloma for which needle localization and excision was performed at the time of the mammoplasty. 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 There was however a 6 mm focus of invasion noted in the biopsy specimen. 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 The case was presented at tumor board. It was felt that the patient does not need further surgical resection. She will however be recommended to undergo hormone therapy, and possible radiation therapy. The patient was doing well until several days ago when she noticed some swelling of the medial aspect of the right breast incision. The inferior aspect of the breast medially also became inflamed. She has not had any fever or chills. She has some continued area of necrosis on the medial aspect of the right nipple which is decreasing in size. Physical exam: Lungs: Clear Heart: Regular rate and rhythm Incisions bilateral clean and dry; medial aspect of right inferior incision with swelling and some serous drainage Approximately 1 x 1 cm area of necrosis in the medial area of the right areolar stable Plan: I&D area of swelling right breast Keflex Follow-up one week Cc: Dr. Bhagat
== END ==
LOC: WWCWWP 14:30
PROVIDERS: ATTEND Surgery
DX: Z48.817 Encounter for surgical aftercare following surgery on the skin and subcutaneous tissue (principal); D05.11 Intraductal carcinoma in situ of right breast
CPT/HCPCS: 87070; 87075; 87205

== ENCOUNTER → 2021-08-02 | Outpatient (CLI) | payer MEDICARE ==
[2021-08-02 09:46] VITALS: BP 119/72; PULSE 60; RESP 17; TEMP 98.5
--- NOTE | 2021-08-02 10:08 | P.PN ---
Progress Note - Text Progress Note Date: 08/02/21 Eboni is a 70-year-old white female who is status post bilateral reduction mammoplasty performed on . This was done secondary to the fact the patient had symptomatic bilateral macromastia. The patient however had been noted to have an intraductal papilloma for which needle localization and excision was performed at the time of the mammoplasty. 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 There was however a 6 mm focus of invasion noted in the biopsy specimen. 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 The case was presented at tumor board. It was felt that the patient does not need further surgical resection. She will however be recommended to undergo hormone therapy, and possible radiation therapy. The patient was doing well until several days ago when she noticed some swelling of the medial aspect of the right breast incision. The inferior aspect of the breast medially also became inflamed. Yesterday the area was opened in the seroma was drained. She was started on Keflex. She has not had any fever or chills. The breast is less inflamed. The erythema has decreased. She again has had some drainage from that site. Physical exam: Incision is clean and dry the medial aspect has was opened yesterday and has had some serous drainage the erythema has markedly improved Plan: Continue present therapy Follow-up next week Follow up sooner any questions or concerns Cultures were obtained and results are pending
== END ==
LOC: WWCWWP 08:56
PROVIDERS: ATTEND Surgery
DX: Z48.817 Encounter for surgical aftercare following surgery on the skin and subcutaneous tissue (principal)

== ENCOUNTER 2021-08-05 09:34 | Day surgery (SDC) | payer MEDICARE ==
[2021-08-02 11:51] VITALS: BMI 29.5
--- NOTE | 2021-08-05 07:28 | P.GSHP ---
History of Present Illness H&P Date: 08/05/21 CHIEF COMPLAINT: GERD HISTORY OF PRESENT ILLNESS: The patient is a 70-year-old female who presents reports gastroesophageal reflux disease. Upper endoscopy was offered for further evaluation and management. PAST MEDICAL HISTORY: Please see list. PAST SURGICAL HISTORY: Please see list. MEDICATIONS: Please see list. ALLERGIES: Please see list. SOCIAL HISTORY: No illicit drug use FAMILY HISTORY: No reports of Crohn disease or ulcerative colitis. REVIEW OF ORGAN SYSTEMS: CONSTITUTIONAL: No reports of fevers or chills. GI: Denies any blood in stools or constipation. PHYSICAL EXAM: VITAL SIGNS: Stable GENERAL: Well-developed and pleasant in no acute distress. HEENT: No scleral icterus. Extraocular movements grossly intact. Moist buccal mucosa. NECK: Supple without lymphadenopathy. CHEST: Unlabored respirations. Equal bilateral excursions. CARDIOVASCULAR: Regular rate and rhythm. Distal 2+ pulses. ABDOMEN: Soft, nondistended. MUSCULOSKELETAL: No clubbing, cyanosis, or edema. ASSESSMENT: 1. Gastroesophageal reflux disease PLAN: 1. Recommend proceeding with an upper endoscopy Past Medical History Past Medical History: Cancer, Diabetes Mellitus, GERD/Reflux, Hypertension, Osteoarthritis (OA) Additional Past Medical History / Comment(s): HX SLEEP APNEA-RESOLVED., PRECIOUS-EN-Y GASTRIC BYPASS., RIGHT BREAST SURGERY -PAPILOMA TUMOR AND BREAST REDUCTION 07/02/21- STATES SOME DRAINAGE RIGHT BREAST AND IS ON KEFLEX., DYSPHAGIA History of Any Multi-Drug Resistant Organisms: None Reported Past Surgical History: Bariatric Surgery, Section, Cholecystectomy, Joint Replacement, Orthopedic Surgery Additional Past Surgical History / Comment(s): Left knee replacement, EGD, cataracts, BREAST BX x3 (right)., PRECIOUS-EN-Y and then surgery for perforated gastrojejunal ulcer ., feeding tube replaced 04/13/15, G TUBE REMOVED, bladder sling. right breast papiloma tumor removed and carmella breast reduction(07/02/21) Past Anesthesia/Blood Transfusion Reactions: No Reported Reaction Past Psychological History: Anxiety, Depression Smoking Status: Never smoker Past Alcohol Use History: None Reported Past Drug Use History: None Reported - Past Family History Mother Family Medical History: Cancer Additional Family Medical History / Comment(s): uterine Father Family Medical History: Cancer Additional Family Medical History / Comment(s): PANCREATIC Medications and Allergies Home Medications Medication Instructions Recorded Confirmed Type Metoprolol Succinate [Toprol XL] 50 mg PO QAM 11/02/13 08/02/21 History Multivitamins, Thera [Multivitamin 1 tab PO DAILY 08/17/14 08/02/21 History (formulary)] Simvastatin [Zocor] 20 mg PO HS #90 tab 05/16/15 08/02/21 Rx Vitamin A (10,000 Wp=5648 Mcg) 2,400 mcg PO DAILY 04/04/16 08/02/21 History Omeprazole 20 mg PO DAILY 07/07/18 08/02/21 History Mirabegron [Myrbetriq] 25 mg PO DAILY 02/28/21 08/02/21 History Repaglinide [Prandin] 2 mg PO AC-TID 02/28/21 08/02/21 History busPIRone HCL 10 mg PO BID 02/28/21 08/02/21 History Semaglutide [Rybelsus] 14 mg PO DAILY 03/05/21 08/02/21 History Losartan/Hydrochlorothiazide 1 tab PO DAILY 05/09/21 08/02/21 History [Losartan-Hctz 100-25 mg Tab] ALPRAZolam [Xanax] 0.25 mg PO BID PRN 05/10/21 08/02/21 History Cholecalciferol [Vitamin D3 (125 250 mcg PO DAILY 05/10/21 08/02/21 History Mcg = 5000 Iu)] Magnesium 250 mg PO DAILY 05/10/21 08/02/21 History Pioglitazone [Actos] 45 mg PO DAILY 05/10/21 08/02/21 History Venlafaxine HCl [Effexor XR] 150 mg PO DAILY 05/10/21 08/02/21 History Vit C/E/Zn/Coppr/Lutein/Zeaxan 2 cap PO DAILY 05/10/21 08/02/21 History [Preservision Areds 2 Softgel] Zinc Gluconate [Zinc] 50 mg PO DAILY 05/10/21 08/02/21 History Ascorbic Acid [Vitamin C] 500 mg PO DAILY 08/02/21 08/02/21 History Calcium Carbonate [Calcium] 600 mg PO DAILY 08/02/21 08/02/21 History Cephalexin [Keflex] 500 mg PO Q6HR 08/02/21 08/02/21 History Insulin Glargine,Hum.rec.anlog 7 units SQ DAILY@1200 08/02/21 08/02/21 History [Lantus Solostar Pen] Vitamin B 150 mg PO WEEKLY 08/02/21 History Allergies Allergy/AdvReac Type Severity Reaction Status Date / Time No Known Allergies Allergy Verified 08/02/21 11:07
[2021-08-05 09:56] VITALS: TEMP 96.5
[2021-08-05 10:03] LABS: Glucose,Whole Blood 147 mg/dL (70-110)
[2021-08-05] MEDS: LACTATED RINGERS 1,000 ML IV SCH ×2 (10:03→10:11)
[2021-08-05] MEDS ORDERED: LIDOCAINE 2% INJ 20 MG/ML (2 ML VIAL) ONE (10:13)
[2021-08-05] MEDS ORDERED: PROPOFOL 10 MG/ML 20 ML VIAL IV ONE (10:13)
[2021-08-05 10:35] VITALS: PULSE 54
--- NOTE | 2021-08-05 10:39 | P.PCN ---
Date of Procedure: 08/05/21 Description of Procedure: PREOPERATIVE DIAGNOSIS: Dysphagia. Gastroesophageal reflux disease Esophageal stricture Esophageal dysmotility POSTOPERATIVE DIAGNOSIS: Dysphagia. Gastroesophageal reflux disease Gastrojejunal ulcer with stenosis Esophageal dysmotility Upper esophageal stricture OPERATION: Esophagogastrojejunoscopy with rigid dilator over the guidewire 51 Fr with dilation of esophagus Esophagogastrojejunoscopy with balloon dilation gastrojejunal anastomosis, 20 mm SURGEON: Meagan Quintana MD ANESTHESIA: MAC. INDICATIONS: The patient is a 70-year-old male who presents with a history of dysphagia. Benefits and risks of the procedure were described. Informed consent was obtained. DESCRIPTION: The patient was brought into the endoscopy suite and laid in the left lateral decubitus position. After a timeout was confirmed, the procedure was initiated. An Olympus gastroscope was passed into the posterior oropharynx down to the distal esophagus were smallest 1 cm hiatal hernia recurrence was identified. The scope was entered into the gastric pouch without ulcer of gastric stenosis. Mild stenosis along the gastrojejunal anastomosis. To address her gastrojejunal stricture including esophageal dysmotility, rigid dilator over guidewire was selected. Next using an [place]an rigid dilator, a guidewire was placed through the gastroscope. Next the scope was withdrawn. A 51-Finnish rigid [place]an dilator was passed carefully along the posterior oropharynx to 50 cm and left in place for 2-3 minutes stretch. The dilator was withdrawn including the guidewire. The scope was reentered along the posterior oropharynx with no findings of full- thickness tear of the upper esophageal sphincter. Separately, dilation of the gastrojejunal anastomosis performed using a 20 mm balloon. No full-thickness injury was encountered. The GI tract was desufflated. The patient tolerated the procedure well. FINDINGS: Gastrojejunal anastomotic stricture with stenosis dilated, 20 mm balloon Upper esophageal stricture without ulceration dilated [place]an rigid dilator 51-Finnish completed. RECOMMENDATIONS: Upper endoscopy as needed Plan - Discharge Summary New Discharge Prescriptions: Continue Metoprolol Succinate [Toprol XL] 50 mg PO QAM Multivitamins, Thera [Multivitamin (formulary)] 1 tab PO DAILY Simvastatin [Zocor] 20 mg PO HS #90 tab Vitamin A (10,000 St=6640 Mcg) 2,400 mcg PO DAILY Omeprazole 20 mg PO DAILY busPIRone HCL 10 mg PO BID Semaglutide [Rybelsus] 14 mg PO DAILY Venlafaxine HCl [Effexor XR] 150 mg PO DAILY Vit C/E/Zn/Coppr/Lutein/Zeaxan [Preservision Areds 2 Softgel] 2 cap PO DAILY Magnesium 250 mg PO DAILY Insulin Glargine,Hum.rec.anlog [Lantus Solostar Pen] 7 units SQ DAILY@1200 Cephalexin [Keflex] 500 mg PO Q6HR Calcium Carbonate [Calcium] 600 mg PO DAILY Ascorbic Acid [Vitamin C] 500 mg PO DAILY Mirabegron [Myrbetriq] 25 mg PO DAILY Repaglinide [Prandin] 2 mg PO AC-TID Losartan/Hydrochlorothiazide [Losartan-Hctz 100-25 mg Tab] 1 tab PO DAILY ALPRAZolam [Xanax] 0.25 mg PO BID PRN PRN Reason: Anxiety Pioglitazone [Actos] 45 mg PO DAILY Cholecalciferol [Vitamin D3 (125 Mcg = 5000 Iu)] 250 mcg PO DAILY Zinc Gluconate [Zinc] 50 mg PO DAILY Vitamin B 150 mg PO WEEKLY Discharge Medication List Metoprolol Succinate [Toprol XL] 50 mg PO QAM 11/02/13 [History] Multivitamins, Thera [Multivitamin (formulary)] 1 tab PO DAILY 08/17/14 [History] Simvastatin [Zocor] 20 mg PO HS #90 tab 05/16/15 [Rx] Vitamin A (10,000 Fd=1606 Mcg) 2,400 mcg PO DAILY 04/04/16 [History] Omeprazole 20 mg PO DAILY 07/07/18 [History] Mirabegron [Myrbetriq] 25 mg PO DAILY 02/28/21 [History] Repaglinide [Prandin] 2 mg PO AC-TID 02/28/21 [History] busPIRone HCL 10 mg PO BID 02/28/21 [History] Semaglutide [Rybelsus] 14 mg PO DAILY 03/05/21 [History] Losartan/Hydrochlorothiazide [Losartan-Hctz 100-25 mg Tab] 1 tab PO DAILY 05/09/21 [History] ALPRAZolam [Xanax] 0.25 mg PO BID PRN 05/10/21 [History] Cholecalciferol [Vitamin D3 (125 Mcg = 5000 Iu)] 250 mcg PO DAILY 05/10/21 [History] Magnesium 250 mg PO DAILY 05/10/21 [History] Pioglitazone [Actos] 45 mg PO DAILY 05/10/21 [History] Venlafaxine HCl [Effexor XR] 150 mg PO DAILY 05/10/21 [History] Vit C/E/Zn/Coppr/Lutein/Zeaxan [Preservision Areds 2 Softgel] 2 cap PO DAILY 05/10/21 [History] Zinc Gluconate [Zinc] 50 mg PO DAILY 05/10/21 [History] Ascorbic Acid [Vitamin C] 500 mg PO DAILY 08/02/21 [History] Calcium Carbonate [Calcium] 600 mg PO DAILY 08/02/21 [History] Cephalexin [Keflex] 500 mg PO Q6HR 08/02/21 [History] Insulin Glargine,Hum.rec.anlog [Lantus Solostar Pen] 7 units SQ DAILY@1200 08/02/21 [History] Vitamin B 150 mg PO WEEKLY 08/02/21 [History] [facility] [facility] [place] [place] [place] Patient Instructions/Handouts: *Surgery [facility] - (Anesthesia) Endoscopy Discharge Instructions, Esophageal Dilation (DC) Discharge Disposition: HOME SELF-CARE
[2021-08-05 10:50] VITALS: BP 114/61; RESP 18
== END 2021-08-05 11:17 | disposition home or self-care (01) ==
LOC: ORWHC2ENDO 09:34
PROVIDERS: ATTEND Surgery Plastic and Reconstructive Surgery
DX: K22.2 Esophageal obstruction (principal); K21.9 Gastro-esophageal reflux disease without esophagitis; E11.9 Type 2 diabetes mellitus without complications; I10 Essential (primary) hypertension; M19.90 Unspecified osteoarthritis, unspecified site; G47.33 Obstructive sleep apnea (adult) (pediatric); Z98.84 Bariatric surgery status; Z90.49 Acquired absence of other specified parts of digestive tract; Z96.652 Presence of left artificial knee joint; F41.9 Anxiety disorder, unspecified; F32.A Depression, unspecified; Z80.49 Family history of malignant neoplasm of other genital organs; Z80.8 Family history of malignant neoplasm of other organs or systems; Z79.899 Other long term (current) drug therapy; Z79.4 Long term (current) use of insulin
CPT/HCPCS: 43249; J2704; J2001; C1726

== ENCOUNTER → 2021-08-06 | Outpatient (CLI) | payer MEDICARE ==
--- NOTE | 2021-08-06 11:04 | P.PN ---
Progress Note - Text Progress Note Date: 08/06/21 The patient was seen to evaluate the right breast. At this time she is not complaining of any fever or chills or any breast pain. The erythema has markedly decreased. She continues to have a small amount of serous drainage from the area that was opened and the medial inferior aspect of the incision last week. Cultures: Positive for rare pseudomonas; however patient is clinically markedly improved utilizing Keflex Lungs: Clear Heart: Regular rate and rhythm Incisions clean and dry marked decreased erythema Plan: Continue Keflex Follow-up next week Dr. Bhagat
== END ==
LOC: WWCWWP 07:54
PROVIDERS: ATTEND Surgery
DX: Z48.817 Encounter for surgical aftercare following surgery on the skin and subcutaneous tissue (principal)

== ENCOUNTER → 2021-08-13 | Outpatient (CLI) | payer MEDICARE ==
[2021-08-13 08:15] VITALS: BP 160/81; PULSE 60; RESP 17; TEMP 98.6
--- NOTE | 2021-08-13 08:51 | P.PN ---
Progress Note - Text Progress Note Date: 08/13/21 The patient was seen to evaluate the right breast. At this time she is not complaining of any fever or chills or any breast pain. The erythema has markedly decreased. She continues to have a small amount of serous drainage from the area that was opened and the medial inferior aspect of the incision. She has had an appointment with medical oncology and was started on anti- hormonal treatment however she was told if she cannot tolerate it she did not need to take this. She saw Dr. Zepeda. She has an appointment with Dr. Powell tomorrow from radiation oncology. Patient is finishing her prescription for Keflex Incisions clean and dry marked decreased erythema The area of necrosis right nipple is beginning to peel away Plan: Continue Keflex will finish in two days Follow-up 2 weeks Patient is aware I will be out of town next week, August 17-August 25. Dr. Lew is covering. Dr. Bhagat Additional CC's: Leah Bhagat
== END ==
LOC: WWCWWP 07:59
PROVIDERS: ATTEND Surgery
DX: L76.82 Other postprocedural complications of skin and subcutaneous tissue (principal)

== ENCOUNTER → 2021-08-20 | Outpatient (CLI) | payer MEDICARE ==
--- NOTE | 2021-08-22 12:42 | USB ---
Reason for Exam: Clinical finding. Patient History: Menarche at age 15. First Full-Term at age 28. Postmenopausal. Breast cancer, right, age 70. 07/02/2021, Malignant MG pre op needle loc RT on the right side. Core Biopsy on the Right side. Core Biopsy on the Right side. 03/05/2021, High risk Core Biopsy on the right side. Technique: Method: Targeted. Prior Study Comparison: 11/17/2017 Bilateral Screening Mammogram, [facility]. 02/12/2021 Bilateral Screening Mammogram, [facility]. 03/05/2021 Right Diagnostic Mammogram, [facility]. Findings: The area of palpable concern of the right breast and the periareolar of the right breast were scanned. Screen Printing Cloth Spreader notes: Scanned over two drainage sites Rt 400 and Rt 600; no discernable fluid collection; diffusely heterogenous tissue along scar line and drainage sites Targeted right breast ultrasound is performed at 12:00 as well as 4:00 to 7:00. At the 4:00 position, 7 cm from the nipple, corresponding to the first drainage site, there is some scar with a tract extending to the skin surface. No sizable fluid collection. This measures approximately 1.1 x 0.6 cm. At the 6:00 position, 3 cm from the nipple, corresponding to the second drainage site, there is some heterogeneous tissue measuring 2.0 cm but no discrete tract to the skin surface or fluid collection. This area can be reassessed at follow-up. Thickened/indurated tissues are present throughout. No other solid or cystic lesion. Overall Assessment: Probably benign, BI-RAD 3 Management: Diagnostic Breast Ultrasound of the right breast in 6 months. 1. Further clinical management and surgical evaluation of patient's right breast drainage. No sizable fluid collection is identified. 2. A 2 cm area at the 6:00 drainage site likely corresponds to some heterogeneous, edematous fibroglandular tissue and can be reassessed at 6 months. 3. Patient should continue monthly self breast exams. Electronically signed and approved by: Amparo Leigh M.D. Radiologist
== END | disposition home or self-care (01) ==
LOC: RADUSWWP 13:53
PROVIDERS: ATTEND Surgery
DX: R92.8 Other abnormal and inconclusive findings on diagnostic imaging of breast (principal); Z78.0 Asymptomatic menopausal state

== ENCOUNTER → 2021-08-30 | Outpatient (CLI) | payer MEDICARE ==
[2021-08-30 12:12] VITALS: BP 146/83; PULSE 76; RESP 16; TEMP 97.8
--- NOTE | 2021-08-30 12:31 | P.PN ---
Progress Note - Text Progress Note Date: 08/30/21 The patient was seen to evaluate the right breast. At this time she is not complaining of any fever or chills or any breast pain. The erythema has resolved. The patient however states approximately a month ago the medial aspect of the right breast incision opened the opening is a proximally 5 mm and a second site just lateral to this opened as well proximally 5 cm. She has had some minimal drainage from the sites. The patient then approximately 2 weeks ago noted that the vertical limb of the reduction mammoplasty incision opened this this is approximately 3 cm x 2 cm in size. It is not painful but she has had some drainage from the sites. She has had an appointment with medical oncology and was started on anti- hormonal treatment however she was told if she cannot tolerate it she did not need to take this. She saw Dr. Zepeda. She has had an appointment with Dr. Powell from radiation oncology is going to consider radiation therapy. Patient has finished her prescription for Keflex Incisions clean and dry marked decreased erythema; 2 5 mm areas of opening in the medial aspect of the inferior horizontal limb of the reduction mammoplasty, 3 cm opening on the vertical limb. The area of necrosis right nipple is beginning to peel away Plan: Suture reinforcement of the area of concern on the vertical limb of the reduction mammoplasty incision Follow-up 2 weeks Continue to wear bra Given another prescription for Keflex The area of concern in the vertical last vertical aspect of the reduction mammoplasty incision was reinforced using 3-0 nylon suture The patient is instructed that I will be gone over the weekend she has any concerns presented to the emergency room Dr. Pace is covering.
== END ==
LOC: WWCWWP 11:51
PROVIDERS: ATTEND Surgery
DX: Z48.817 Encounter for surgical aftercare following surgery on the skin and subcutaneous tissue (principal)

== ENCOUNTER → 2021-08-30 | Outpatient (CLI) | payer MEDICARE ==
--- NOTE | 2021-08-30 15:04 | BD ---
EXAMINATION TYPE: Axial Bone Density DATE OF EXAM: 08/30/2021 COMPARISON: DEXA bone scan 2017 CLINICAL HISTORY: 70 year old Female. ICD-10 CODE: C50.811 BREAST CA Height: 67 Weight: 249.1 FRAX RISK QUESTIONS: Alcohol (3 or more units per day): no Family History (Parent hip fracture): no Glucocorticoids (More than 3mos): no (Ex: prednisone, prednisolone, methylprednisolone, dexamethasone, and hydrocortisone). History of Fracture in Adulthood: no Secondary Osteoporosis: 1. Type 1 Diabetes: no 2. Hyperthyroidism: no 3. Menopause before 45: no 4. Malnutrition: no 5. Chronic liver disease: no Rheumatoid Arthritis: no Current Tobacco Use: no RISK FACTORS HISTORY OF: (Surgery to Spine/Hip(right/left)/Wrist (right/left): no Family History of Osteoporosis: no Active: no Diet low in dairy products/other sources of calcium: no Postmenopausal woman: yes Lost more than 2 inches in height since high school: yes MEDICATIONS: Additional History: EXAM MEASUREMENTS: Bone mineral densitometry was performed using the LMN-1 System. Bone mineral density as measured about the Lumbar spine is: ----- L1-L4(G/cm2): 1.444 T Score Values are as follows: ----- L1: -0.5 ----- L2: 1.6 ----- L3: 3.0 ----- L4: 4.1 ----- L1-L4: 2.2 Bone mineral density has: decreased -2.7 % since study of: 11.17.2017 Bone mineral density about the R hip (g/cm2): 1.007 Bone mineral density about the L hip (g/cm2): 1.043 T Score values are as follows: -----R Neck: -0.2 -----L Neck: 0.0 -----R Total: -0.1 -----L Total: -0.1 Bone mineral density has: decreased -3.5 % since study of: 11.17.2017 FRAX%s: The graph provided illustrates a 6.7% chance for a major osteoporotic fx and a 0.4% chance fo r the hips probability for fx in 10 years time. IMPRESSION: Normal (Values between +1 and -1 indicate normal bone mass). Consider repeating this study in 5 year s or sooner if there is some new clinical indication. NOTE: T-SCORE=SD OF THE YOUNG ADULT MEAN.
== END | disposition home or self-care (01) ==
LOC: RADBDWWP 11:51
PROVIDERS: ATTEND Internal Medicine Hematology & Oncology
DX: C50.811 Malignant neoplasm of overlapping sites of right female breast (principal)
CPT/HCPCS: 77080

== ENCOUNTER → 2021-09-06 | Outpatient (CLI) | payer MEDICARE ==
[2021-09-06 15:28] VITALS: BP 124/69; PULSE 76; RESP 18; TEMP 98.4
--- NOTE | 2021-09-06 15:59 | P.PN ---
Progress Note - Text Progress Note Date: 09/06/21 The patient was seen to evaluate the right breast. At this time she is not complaining of any fever or chills or any breast pain. The erythema has resolved. The patient however states approximately a month ago the medial aspect of the right breast incision opened the opening was approximately 5 mm and a second site just lateral to this opened as well about 5 cm. She has had some minimal drainage from the sites. The patient then approximately 2 weeks ago noted that the vertical limb of the reduction mammoplasty incision opened this this is approximately 3 cm x 2 cm in size. It is not painful but she has had some drainage from the sites. Surgery was reinforced last week and appears to be healing well at this time. Today she noted in the lateral aspect of the incision some drainage. This area had several punctate areas of opening along the lateral aspect of the incision extending approximately 1-1/2 cm. Permission the area was prepped sterile fashion 1% lidocaine was used to anesthetize the area of concern and a small opening was made. The middle minimal amount of fluid drained. Some tissue was compared appeared to be consistent with fat necrosis was extruded. Sutures were placed medially and laterally to reinforce the area that was open so would not open wider. The wound was packed. She has had an appointment with medical oncology and was started on anti- hormonal treatment however she was told if she cannot tolerate it she did not need to take this. She saw Dr. Zepeda. She has had an appointment with Dr. Powell from radiation oncology is going to consider radiation therapy, this is on hold at this time Patient has finished her prescription for Keflex; has been given another prescription for Keflex Incisions clean and dry marked decreased erythema; 2 5 mm areas of opening in the medial aspect of the inferior horizontal limb of the reduction mammoplasty have close at this time and are not draining, 3 cm opening on the vertical limb appears to be closed and is not draining Area in the lateral aspect of the incision which was opened today and packed approximately 1-1/2 cm in size. Mild erythema surrounds the area on the lateral aspect of the incision The area of necrosis right nipple is continuing to peel away Plan: Suture reinforcement of the area of concern on the vertical limb of the reduction mammoplasty incision done last week sutures left in place Follow-up next week Continue to wear bra Given another prescription for Keflex The area of concern in the vertical last vertical aspect of the reduction mammoplasty incision was reinforced using 3-0 nylon suture last week and appears to be healing well The 2 5 mm punctate areas in the medial aspect of the incision appeared to be healed Area lateral aspect of the incision which was opened today and reinforced and packed
== END ==
LOC: WWCWWP 15:10
PROVIDERS: ATTEND Surgery
DX: Z48.817 Encounter for surgical aftercare following surgery on the skin and subcutaneous tissue (principal)

== ENCOUNTER → 2021-09-10 | Outpatient (CLI) | payer MEDICARE ==
--- NOTE | 2021-09-10 13:22 | P.PN ---
Progress Note - Text Progress Note Date: 09/10/21 The patient was seen to evaluate the right breast. At this time she is not complaining of any fever or chills or any breast pain. The erythema has resolved. The patient however states approximately a month ago the medial aspect of the right breast incision opened the opening was approximately 5 mm and a second site just lateral to this opened as well about 5 cm. She has had some minimal drainage from the sites in the past, which has now closed. The patient then approximately 2 weeks ago noted that the vertical limb of the reduction mammoplasty incision opened this this is approximately 3 cm x 2 cm in size. It is not painful but she has had some drainage from the sites. Surgery was reinforced this appears to be healed well at this time. This has totally healed at this time. She than noted in the lateral aspect of the incision some drainage. This area had several punctate areas of opening along the lateral aspect of the incision extending approximately 1-1/2 cm. This was draied and packed, and is healing at this time. She has had an appointment with medical oncology and was started on anti- hormonal treatment however she was told if she cannot tolerate it she did not need to take this. She saw Dr. Zepeda. She has had an appointment with Dr. Powell from radiation oncology is going to consider radiation therapy, this is on hold at this time Patient is on Keflex. Incisions clean and dry marked decreased erythema; 2 5 mm areas of opening in the medial aspect of the inferior horizontal limb of the reduction mammoplasty have close at this time and are not draining, 3 cm opening on the vertical limb appears to be closed and is not draining Area in the lateral aspect of the incision packed approximately 1-1/2 cm in size. The area of necrosis right nipple is continuing to peel away Follow up Thursday.
== END ==
LOC: WWCWWP 11:41
PROVIDERS: ATTEND Surgery
DX: L76.82 Other postprocedural complications of skin and subcutaneous tissue (principal); I96 Gangrene, not elsewhere classified; Z98.82 Breast implant status

== ENCOUNTER → 2021-09-13 | Outpatient (CLI) | payer MEDICARE ==
[2021-09-13 08:43] VITALS: BP 134/71; PULSE 69; RESP 17; TEMP 98.9
--- NOTE | 2021-09-13 08:58 | P.PN ---
Progress Note - Text Progress Note Date: 09/13/21 The patient was seen to evaluate the right breast. At this time she is not complaining of any fever or chills or any breast pain. Prior erythema has resolved. . The patient has had some difficulty with wound healing. She had some drainage from the medial aspect of the horizontal incision which has healed. She additionally had some separation of the medial portion of the vertical limb of the incision. This likewise has healed. Most recently she had some drainage from the lateral aspect of the horizontal portion of the incision. At this time the drainage from the lateral aspect of the wound has decreased. She has had an appointment with medical oncology and was started on anti-hor monal treatment however she was told if she cannot tolerate it she did not need to take this. She saw Dr. Zepeda. She has had an appointment with Dr. Powell from radiation oncology is going to consider radiation therapy, this is on hold at this time Patient has completed her course of antibiotics Incisions clean and dry erythema resolved; 2 5 mm areas of opening in the medial aspect of the inferior horizontal limb of the reduction mammoplasty have close at this time and are not draining, 3 cm opening on the vertical limb appears to be closed and is not draining Area in the lateral aspect of the incision packed approximately 1/2 cm in size with minimal drainage The area of necrosis right nipple is continuing to peel away Plan: Follow up in 2 weeks Patient will call sooner if any questions or concerns CC: Dr. Bhagat
== END ==
LOC: WWCWWP 08:32
PROVIDERS: ATTEND Surgery
DX: Z48.00 Encounter for change or removal of nonsurgical wound dressing (principal)

== ENCOUNTER → 2021-09-27 | Outpatient (CLI) | payer MEDICARE ==
[2021-09-27 14:33] LABS: Basophils # (A) 0.01 X 10*3/uL (0.00-0.10); Basophils % (A) 0.2 %; Eosinophils # (A) 0.18 X 10*3/uL (0.04-0.35); Eosinophils % (A) 3.8 %; HCT 34.9 % (37.2-46.3); HGB 10.7 g/dL (12.0-15.0); Immature Grans, Automated 0.2 %; Lymphocytes # (A) 1.15 X 10*3/uL (0.90-5.00); Lymphocytes % (A) 24.1 %; MCH 26.8 pg (27.0-32.0); MCHC 30.7 g/dL (32.0-37.0); MCV 87.5 fL (80.0-97.0); Mean Platelet Volume 10.4 fL (9.5-12.2); Monocytes # (A) 0.51 X 10*3/uL (0.20-1.00); Monocytes % (A) 10.7 %; NRBC Per 100 WBC 0 /100 WBCS (0.0-0.0); Neutrophils # (A) 2.91 X 10*3/uL (1.80-7.70); Platelet Count 278 X 10*3/uL (140-440); RBC 3.99 X 10*6/uL (4.10-5.20); RDW 14.3 % (11.5-14.5); WBC 4.77 X 10*3/uL (4.50-10.00)
[2021-09-27 14:55] LABS: ALT 20 U/L (8-44); AST 29 U/L (13-35); African American GFR (CKD) 76.9 (60.0-200.0); Albumin/Globulin Ratio 1.66 (1.60-3.17); Alkaline Phosphatase 93 U/L (41-126); Blood Urea Nitrogen 22.4 mg/dL (9.0-27.0); Calcium 9.3 mg/dL (8.7-10.3); Carbon Dioxide 28.6 mmol/L (20.0-27.5); Chloride 103 mmol/L (96-109); Chol/HDL Ratio 2.79 Ratio; Globulin 2.4 g/dL (1.6-3.3); Glucose 129 mg/dL (70-110); LDL Cholesterol,Calculated 78.6 mg/dL (0.0-131.0); Non-African American GFR(CKD) 66.4 (60.0-200.0); Potassium 3.7 mmol/L (3.5-5.5); Sodium 141 mmol/L (135-145); Total Protein 6.3 g/dL (6.2-8.2)
== END | disposition home or self-care (01) ==
LOC: LABWHC1 10:05
PROVIDERS: ATTEND Family Medicine
DX: I10 Essential (primary) hypertension (principal); E78.5 Hyperlipidemia, unspecified; E11.65 Type 2 diabetes mellitus with hyperglycemia; R79.9 Abnormal finding of blood chemistry, unspecified
CPT/HCPCS: 36415; 80053; 80061; 83036; 84443; 85025

== ENCOUNTER → 2021-10-03 | Outpatient (CLI) | payer MEDICARE ==
[2021-10-03 08:56] VITALS: BP 165/82; PULSE 62; RESP 17; TEMP 98.4
--- NOTE | 2021-10-03 09:18 | P.PN ---
Subjective Progress Note Date: 10/03/21 Principal diagnosis: Right breast encapsulated papillary carcinoma Eboni is a 70-year-old white female status post right breast reduction mammoplasty and left breast reduction performed on . The initial procedure on the right breast was 4. was believed to be a papilloma however pathology postoperatively revealed an encapsulated papillary carcinoma with invasion. The lateral margin and all margins were negative for invasive component of the lesion however the noninvasive component of the capsular papillary carcinoma was present at the lateral margin. This was discussed in detail with medical oncology as well as radiation oncology and further resection was not felt to be necessary. She has had difficulty with wound healing of the right breast and is seen to reevaluate this area. She was recently seen by Dr. Bhagat and given Muciperin cream. She is not planning any discharge. She is not complaining of any fever or erythema. A culture was done and Dr. Bhagat's office and those results are not available to us at this time. Family history: Mother: Uterine cancer Father: Pancreatic cancer Hormonal history: Menarche: 15 , breast fed: Yes, age of first : 28 Menopause: 55 Surgical history: Bilateral cataracts Bladder sling Left knee replacement Gastric bypass Ruptured bypass repaired Left knee replacement Bilateral reduction mammoplasty with resection of papillary carcinoma right breast Medical history: Hypertension Diabetes Social history: Nicotine: Negative Alcohol: Negative Drugs: Negative Objective - Constitutional General appearance: Present: cooperative - EENT Eyes: Present: EOMI ENT: Present: hearing grossly normal - Neck Neck: Present: normal ROM - Respiratory Respiratory: bilateral: CTA - Cardiovascular Rhythm: regular Heart sounds: normal: S1, S2 - Gastrointestinal General gastrointestinal: Present: soft - Integumentary Integumentary Comment(s): small area 1 cm lateral aspect of the horizontal aspect of the incision remains open, no evidence of infection remainder of incision well healed bilateral This opening I am able to probe into the area of the breast tissue however there is no evidence of infection and no drainage when I do this line the left breast incisions are well-healed with no evidence of infection - Musculoskeletal Musculoskeletal: Present: gait normal - Psychiatric Psychiatric: Present: A&O x's 3, appropriate affect, intact judgment & insight Assessment and Plan Assessment: Impression: Bilateral reduction mammoplasty with difficulty right breast wound healing which is resolving at this time Papillary carcinoma right breast waiting for radiation therapy Plan: Continue present wound care Obtain cultures from Dr. Bhagat's office Follow-up in 2 weeks Follow up sooner any questions or concerns CC: Dr. Bhagat
== END ==
LOC: WWCWWP 08:43
PROVIDERS: ATTEND Surgery
DX: C50.911 Malignant neoplasm of unspecified site of right female breast (principal); I10 Essential (primary) hypertension; E11.9 Type 2 diabetes mellitus without complications

== ENCOUNTER → 2021-10-18 | Outpatient (CLI) | payer MEDICARE ==
[2021-10-18 09:27] VITALS: BP 164/73; PULSE 68; RESP 17; TEMP 98.4
--- NOTE | 2021-10-18 09:35 | P.PN ---
Subjective Progress Note Date: 10/18/21 Principal diagnosis: right breast encapsulated papillary carcinoma: [id number]+Pr+Her2-G2 Right breast encapsulated papillary carcinoma Eboni is a 70-year-old white female status post right breast reduction mammoplasty and left breast reduction performed on . The initial procedure on the right breast was done for what was believed to be a papilloma however pathology postoperatively revealed an encapsulated papillary carcinoma with invasion. The lateral margin and all margins were negative for invasive component of the lesion however the noninvasive component of the capsular papillary carcinoma was present at the lateral margin. This was discussed in detail with medical oncology as well as radiation oncology and further resection was not felt to be necessary. She has had difficulty with wound healing of the right breast and is seen to reevaluate this area. She was recently seen by Dr. Bhagat and given Muciperin cream. She is not planning any discharge. She is not complaining of any fever or erythema. A culture was done and Dr. Bhagat's office and those results did not detect S. Aureus, bet hemlytic strept, or P. aeruginosa. The patient is not complaining of any problems at this time. Family history: Mother: Uterine cancer Father: Pancreatic cancer Hormonal history: Menarche: 15 , breast fed: Yes, age of first : 28 Menopause: 55 Surgical history: Bilateral cataracts Bladder sling Left knee replacement Gastric bypass Ruptured bypass repaired Left knee replacement Bilateral reduction mammoplasty with resection of papillary carcinoma right breast Medical history: Hypertension Diabetes Social history: Nicotine: Negative Alcohol: Negative Drugs: Negative Objective - Constitutional General appearance: Present: cooperative - EENT Eyes: Present: EOMI ENT: Present: hearing grossly normal - Neck Neck: Present: normal ROM - Respiratory Respiratory: bilateral: CTA - Cardiovascular Rhythm: regular Heart sounds: normal: S1, S2 - Integumentary Integumentary Comment(s): Approximately 3 mm opening in the lateral aspect of the inferior portion of the right breast reduction incision No evidence of any infection no erythema otherwise all incisions are clean and dry and well-healed Integumentary: Present: normal turgor Assessment and Plan Assessment: Impression: 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 Bhagat
== END ==
LOC: WWCWWP 09:06
PROVIDERS: ATTEND Surgery
DX: C50.911 Malignant neoplasm of unspecified site of right female breast (principal); Z79.811 Long term (current) use of aromatase inhibitors; I10 Essential (primary) hypertension; E11.9 Type 2 diabetes mellitus without complications

== ENCOUNTER → 2022-02-21 | Outpatient (CLI) | payer MEDICARE ==
[2022-02-21 13:19] VITALS: BP 143/84; PULSE 68; RESP 18; TEMP 98.1
--- NOTE | 2022-02-21 13:58 | P.PN ---
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 She had additional imaging at core biopsy which revealed a papilloma. She subsequently underwent a right breast lumpectomy and a left breast reduction mammoplasty. On the lumpectomy specimen there was actually noted to be an encapsulated papillary carcinoma. No sentinel lymph nodes were obtained. 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 The lateral margin was positive the capsular papillary carcinoma. This was ER/[place] positive and HER-2/ross negative. She had an Oncotype score of 3. The patient noted drainage for the right breast 2 weeks ago and then it started getting more red. Drainage was in the periareolar area. She started doxycline and and it is much better. She also scheduled an MRI of the breast. She has not had any fever or chills. Note 02-03-22 Dr. Zepeda reviewed note 12-25-21 radiation oncology reviewed She completed adjuvant radiation therapy in December 2021 She is presently tolerating anestrazole Family history: Mother: Uterine cancer Father: Pancreatic cancer Hormonal history: Menarche: 15 , breast fed: Yes, age of first : 28 Menopause: 55 Surgical history: Bilateral cataracts Bladder sling Left knee replacement Gastric bypass Ruptured bypass repaired Left knee replacement Bilateral reduction mammoplasty with resection of papillary carcinoma right breast Medical history: Hypertension Diabetes Social history: Nicotine: Negative Alcohol: Negative Drugs: Negative Objective - Vital Signs Vital signs: Vital Signs Temp 98.1 F 02/21/22 13:15 Pulse 68 02/21/22 13:15 Resp 18 02/21/22 13:15 BP 143/84 02/21/22 13:15 Pulse Ox 98 02/21/22 13:15 FiO2 - Constitutional General appearance: Present: cooperative - EENT Eyes: Present: EOMI ENT: Present: hearing grossly normal - Neck Neck: Present: normal ROM - Respiratory Respiratory: bilateral: CTA - Cardiovascular Rhythm: regular Heart sounds: normal: S1, S2 - Gastrointestinal General gastrointestinal: Present: soft - Integumentary Integumentary Comment(s): erythema right breast periareolar site - Psychiatric Psychiatric: Present: A&O x's 3, appropriate affect, intact judgment & insight - Additional findings Additional findings: Breast Exam: BRA: 40C inspection: Patient status post bilateral breast reduction, the right side has inversion of the nipple as well as erythema in the periareolar region Palpation: Right breast: Multiple positional exam postoperative and postradiation changes, erythema in the superior areolar area, there is firmness underneath the area of erythema felt to be related to postsurgical and postradiation changes Right axilla: No adenopathy of concern Left breast: Multiple positional exam fibrocystic changes no dominant masses or nodules of concern Left axilla: No adenopathy of concern Assessment and Plan Assessment: Impression: Patient status post right breast reduction mammoplasty with resection of invasive ductal carcinoma/lateral margin was positive and treated with radiation therapy Oncotype low no chemotherapy Patient is on an aromatase inhibitor Recent erythema right periareolar area patient on doxycycline Plan: [place] [id number], she will follow up after this is done Continue doxycycline Follow up sooner any questions or concerns Continue aromataze inhibitor CC: Dr. Bhagat
== END ==
LOC: WWCWWP 12:45
PROVIDERS: ATTEND Surgery
DX: Z98.82 Breast implant status (principal); I10 Essential (primary) hypertension; E11.9 Type 2 diabetes mellitus without complications

== ENCOUNTER → 2022-02-27 | Outpatient (CLI) | payer MEDICARE ==
--- NOTE | 2022-03-11 08:35 | BMR ---
EXAMINATION TYPE: MR breast BILAT wo/w con DATE OF EXAM: 02/27/2022 COMPARISON: 3-D bilateral breast mammogram February 12, 2021 BI-RADS 0 ultrasound right breast Januar y 2021 BI-RADS 4. Limited right breast ultrasound August 20, 2021 BI-RADS 3. HISTORY: Right breast encapsulated papillary cancer with invasion grade 2, prior reduction and remova l performed July 02, 2021 of papilloma diagnosed on biopsy March 05, 2021. TECHNIQUE: A series of fat and water weighted images in the long and short axis views of both breasts are obtained in conjunction with dynamic contrast MRI with subtraction technique. The patient was i njected with 11 mL intravenous Gadavist gadolinium contrast. Three-dimensional and additional postp rocessing imaging is created on independent workstation and reviewed during official interpretation o f this study. FINDINGS: Case performed in consultation with [facility] radiologist, their report and findings are below. I have reviewed and agree with the report and recommendations. Heterogeneously dense fibroglandular tissue bilaterally is redemonstrated. Normal benign-appearing bi lateral axillary lymph nodes are present. Axial T2-weighted images show no cysts or focal fluid colle ctions. There is edema in Bilateral breast reduction pattern noted. Nonfat sat T1 weighted images dem onstrate bilateral areas of fat necrosis, hemosiderin deposition, and skin retraction in the central and inferior region of both breasts. Delayed postcontrast images demonstrate no internal mammary lymp hadenopathy. With regards to the right breast no suspicious enhancing masses or orbital pathologic areas of enhanc ement. There is nonmass enhancement in the central and inferior portion of the right breast correlati ng to area of presumed breast reduction in surrounding areas of scattered fat necrosis. There is asso ciated nipple retraction. Chest wall is intact. With regards to the left breast there is nonmass enhancement in the central and inferior breast corre lating to area of presumed breast reduction in surrounding the scattered areas of fat necrosis. Less prominent than the opposite right breast. No enhancing masses or suspicious areas of pathologic enhan cement. Chest wall is intact. IMPRESSION: Postsurgical changes in both breasts as detailed above. Areas of architectural distortion , hemosiderin deposition, fat necrosis, and associated nonmass enhancement noted. No suspicious enhan cing masses. No adenopathy noted. BI-RADS 2 benign findings right breast. BI-RADS 2 benign findings left breast Recommendation: Patient currently overdue for annual bilateral breast mammogram evaluation. Clinical management of known right breast malignancy with no associated MRI findings.
== END | disposition home or self-care (01) ==
LOC: RADMRIMAIN 12:17
PROVIDERS: ATTEND Family Medicine
DX: C50.611 Malignant neoplasm of axillary tail of right female breast (principal)
CPT/HCPCS: C8908; A9585; 77049

== ENCOUNTER → 2022-05-01 | Outpatient (CLI) | payer MEDICARE ==
[2022-05-01 10:34] LABS: Basophils # (A) 0.02 X 10*3/uL (0.00-0.10); Basophils % (A) 0.4 %; Eosinophils # (A) 0.09 X 10*3/uL (0.04-0.35); Eosinophils % (A) 1.7 %; HCT 35.7 % (37.2-46.3); HGB 10.9 g/dL (12.0-15.0); Immature Grans, Automated 0.2 %; Lymphocytes # (A) 0.84 X 10*3/uL (0.90-5.00); Lymphocytes % (A) 15.9 %; MCH 25.8 pg (27.0-32.0); MCHC 30.5 g/dL (32.0-37.0); MCV 84.4 fL (80.0-97.0); Mean Platelet Volume 9.6 fL (9.5-12.2); Monocytes % (A) 11.4 %; NRBC Per 100 WBC 0 /100 WBCS (0.0-0.0); Neutrophils # (A) 3.72 X 10*3/uL (1.80-7.70); Neutrophils % (A) 70.4 %; Platelet Count 284 X 10*3/uL (140-440); RBC 4.23 X 10*6/uL (4.10-5.20); RDW 15.9 % (11.5-14.5); WBC 5.28 X 10*3/uL (4.50-10.00)
[2022-05-01 11:10] LABS: ALT 27 U/L (8-44); AST 30 U/L (13-35); African American GFR (CKD) 72.4 (60.0-200.0); Albumin 4.1 g/dL (3.8-4.9); Albumin/Globulin Ratio 1.71 (1.60-3.17); Alkaline Phosphatase 106 U/L (41-126); BUN/Creat Ratio 27.11 Ratio (12.00-20.00); Calcium 9.4 mg/dL (8.7-10.3); Carbon Dioxide 31.5 mmol/L (20.0-27.5); Chloride 103 mmol/L (96-109); Chol/HDL Ratio 2.44 Ratio; Globulin 2.4 g/dL (1.6-3.3); Glucose 124 mg/dL (70-110); LDL Cholesterol,Calculated 83.6 mg/dL (0.0-131.0); Non-African American GFR(CKD) 62.5 (60.0-200.0); Potassium 4.1 mmol/L (3.5-5.5); Sodium 142 mmol/L (135-145); Total Protein 6.5 g/dL (6.2-8.2); VLDL Calculation 14.98 mg/dL (5.00-40.00)
[2022-05-01 11:13] LABS: Vitamin B12 >1800.0 pg/mL (200.0-944.0)
== END | disposition home or self-care (01) ==
LOC: LABWHC1 08:15
PROVIDERS: ATTEND Family Medicine
DX: E11.65 Type 2 diabetes mellitus with hyperglycemia (principal); R32 Unspecified urinary incontinence
CPT/HCPCS: 36415; 80053; 80061; 82607; 83036; 84439; 84443; 85025

== ENCOUNTER → 2022-05-01 | Outpatient (CLI) | payer MEDICARE ==
[2022-05-01 08:45] VITALS: RESP 18; TEMP 97.7
--- NOTE | 2022-05-01 08:59 | P.PN ---
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 She had additional imaging and core biopsy which revealed a papilloma. She subsequently underwent a right breast lumpectomy and a left breast reduction mammoplasty 07-02-21. On the lumpectomy specimen there was actually noted to be an encapsulated papillary carcinoma. No sentinel lymph nodes were obtained. The patient on pathology was noted to have a grade2 6 mm invasive ductal carcinoma. The lateral margin was positive the capsular papillary carcinoma. This was ER/[place] positive and HER-2/ross negative. She had an Oncotype score of 3. The patient noted drainage for the right breast 2 weeks ago and then it started getting more red. Drainage was in the periareolar area. She started doxycline and and it is much better. She also scheduled an MRI of the breast. She has not had any fever or chills. Note 02-03-22 Dr. Zepeda reviewed note 12-25-21 radiation oncology reviewed She completed adjuvant radiation therapy 11-27-21 She is presently tolerating anestrazole 04-18-22 mammogram from 04-18-22 BIRAD 2 MRI 02-27-22 no evidence of cancer in either breast The patient continues to have an open area at the periareolar region superiorly in the right breast 05-01-22 The patient's breast wound is healing well. There is there is less packing that is able to be placed and she is not having any drainage. She has not had any fever or chills. She is not complaining of any pain in her breast. Family history: Mother: Uterine cancer Father: Pancreatic cancer Hormonal history: Menarche: 15 , breast fed: Yes, age of first : 28 Menopause: 55 Surgical history: Bilateral cataracts Bladder sling Left knee replacement Gastric bypass Ruptured bypass repaired Left knee replacement Bilateral reduction mammoplasty with resection of papillary carcinoma right breast Medical history: Hypertension Diabetes Social history: Nicotine: Negative Alcohol: Negative Drugs: Negative Examination: Lungs: Clear Heart: Regular rate and rhythm Examination of the right breast reveals an open area in the periareolar region of the right breast. The area was probed. It is decreased in size. The depth is approximately 1.5 cm but it is very narrow at this time. This is decreased from 1.5 cm depth to 1 cm in width. Plan: Continue packing of the right breast wound Follow-up. In 4 weeks She will have bilateral breast exam at that time Continue to follow with medical and radiation oncology Patient will follow-up sooner any questions or concerns Patient is aware and in agreement with the treatment plan. CC: Dr. Bhagat Additional CC's: Leah Bhagat
== END ==
LOC: WWCWWP 08:23
PROVIDERS: ATTEND Surgery
DX: D05.11 Intraductal carcinoma in situ of right breast (principal); I10 Essential (primary) hypertension; E11.36 Type 2 diabetes mellitus with diabetic cataract

== ENCOUNTER → 2022-06-19 | Outpatient (CLI) | payer MEDICARE ==
[2022-06-19 14:31] VITALS: BP 119/75; PULSE 69; RESP 18; TEMP 97.9
--- NOTE | 2022-06-19 14:59 | P.PN ---
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 She had additional imaging and core biopsy which revealed a papilloma. She subsequently underwent a right breast lumpectomy and a left breast reduction mammoplasty 07-02-21. On the lumpectomy specimen there was actually noted to be an encapsulated papillary carcinoma. No sentinel lymph nodes were obtained. The patient on pathology was noted to have a grade2 6 mm invasive ductal carcinoma. The lateral margin was positive the capsular papillary carcinoma. This was ER/[place] positive and HER-2/ross negative. She had an Oncotype score of 3. The patient noted drainage for the right breast 2 weeks ago and then it started getting more red. Drainage was in the periareolar area. She started doxycline and and it is much better. She also scheduled an MRI of the breast. She has not had any fever or chills. Note 02-03-22 Dr. Zepeda reviewed note 12-25-21 radiation oncology reviewed She completed adjuvant radiation therapy 11-27-21 She is presently tolerating anestrazole 04-18-22 mammogram from 04-18-22 BIRAD 2 MRI 02-27-22 no evidence of cancer in either breast The patient continues to have an open area at the periareolar region superiorly in the right breast 05-01-22 The patient's breast wound is healing well. There is there is less packing that is able to be placed and she is not having any drainage. She has not had any fever or chills. She is not complaining of any pain in her breast. 06-19-22 The patient continues to have a small area of opening at the periareolar region on the right breast. She states that she can probe it and that the area although very small at the skin surface probe somewhat deep. Otherwise she is not complaining of any lumps masses or nodules of concern. She did complete radiation therapy on [id number]. She is presently tolerating anastrozole. Her last bilateral mammogram was 3323 this was BIRADS 2 She had an MRI and no evidence of cancer in either breast Family history: Mother: Uterine cancer Father: Pancreatic cancer Hormonal history: Menarche: 15 , breast fed: Yes, age of first : 28 Menopause: 55 Surgical history: Bilateral cataracts Bladder sling Left knee replacement Gastric bypass Ruptured bypass repaired Left knee replacement Bilateral reduction mammoplasty with resection of papillary carcinoma right breast Medical history: Hypertension Diabetes Social history: Nicotine: Negative Alcohol: Negative Drugs: Negative Objective - Vital Signs Vital signs: Vital Signs Temp 97.9 F 06/19/22 14:29 Pulse 69 06/19/22 14:29 Resp 18 06/19/22 14:29 BP 119/75 06/19/22 14:29 Pulse Ox 96 06/19/22 14:29 FiO2 Intake & Output 06/18/22 06/19/22 06/19/22 18:59 06:59 18:59 Weight 90.718 kg - Constitutional General appearance: Present: cooperative - EENT Eyes: Present: EOMI - Neck Neck: Present: normal ROM - Respiratory Respiratory: bilateral: CTA - Cardiovascular Rhythm: regular Heart sounds: normal: S1, S2 - Integumentary Integumentary: Present: normal turgor - Musculoskeletal Musculoskeletal: Present: gait normal - Psychiatric Psychiatric: Present: A&O x's 3, appropriate affect, intact judgment & insight - Additional findings Additional findings: Breast examination: Bra: 42D Inspection: Bilateral well-healed scars, small opening periareolar region right breast approximately 3 mm in size Right breast: Multiple positional exam post radiation and postoperative changes no dominant masses or nodules of concern small opening periareolar region as stated Right axilla: No adenopathy of concern Left breast: Multiple positional exam fibrocystic changes, bilateral well-healed scars, no dominant masses or nodules of concern Left axilla: No adenopathy of concern Assessment and Plan Assessment: Impression: Nonhealing periareolar incision right breast believed related to scar tissue and radiation changes Patient status post bilateral reduction mammoplasty right breast had a small invasive ductal carcinoma and she underwent radiation therapy as well as on hormone therapy Plan: Probing of the area of concern in the nonhealing region of the right breast Bilateral mammogram in 1 year Continue anastrozole Following informed consent the area of concern in the right breast was probed. This was approximately 3 cm deep. The area was cleaned and the opening opened to approximately 6 mm from 3 mm in the skin surface. This was packed using Aquacel silver. The patient will follow up next week to have this changed. If she notes any changes before she will call us. This does not heal we will consider wound clinic. CC: Dr. Bhagat
== END ==
LOC: WWCWWP 14:07
PROVIDERS: ATTEND Surgery
DX: D05.11 Intraductal carcinoma in situ of right breast (principal); E11.36 Type 2 diabetes mellitus with diabetic cataract; I10 Essential (primary) hypertension; Z17.0 Estrogen receptor positive status [ER+]; Z79.811 Long term (current) use of aromatase inhibitors; Z92.3 Personal history of irradiation; Z98.84 Bariatric surgery status

== ENCOUNTER → 2022-06-26 | Outpatient (CLI) | payer MEDICARE ==
[2022-06-26 14:29] VITALS: BP 119/69; PULSE 75; RESP 17; TEMP 98.2
--- NOTE | 2022-06-26 14:41 | P.PN ---
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 She had additional imaging and core biopsy which revealed a papilloma. She subsequently underwent a right breast lumpectomy and a left breast reduction mammoplasty 07-02-21. On the lumpectomy specimen there was actually noted to be an encapsulated papillary carcinoma. No sentinel lymph nodes were obtained. The patient on pathology was noted to have a grade2 6 mm invasive ductal carcinoma. The lateral margin was positive the capsular papillary carcinoma. This was ER/[place] positive and HER-2/ross negative. She had an Oncotype score of 3. The patient noted drainage for the right breast 2 weeks ago and then it started getting more red. Drainage was in the periareolar area. She started doxycline and and it is much better. She also scheduled an MRI of the breast. She has not had any fever or chills. Note 02-03-22 Dr. Zepeda reviewed note 12-25-21 radiation oncology reviewed She completed adjuvant radiation therapy 11-27-21 She is presently tolerating anestrazole 04-18-22 mammogram from 04-18-22 [facility] 2 MRI 02-27-22 no evidence of cancer in either breast The patient continues to have an open area at the periareolar region superiorly in the right breast 05-01-22 The patient's breast wound is healing well. There is there is less packing that is able to be placed and she is not having any drainage. She has not had any fever or chills. She is not complaining of any pain in her breast. 06-19-22 The patient continues to have a small area of opening at the periareolar region on the right breast. She states that she can probe it and that the area although very small at the skin surface probe somewhat deep. Otherwise she is not complaining of any lumps masses or nodules of concern. She did complete radiation therapy on [id number]. She is presently tolerating anastrozole. Her last bilateral mammogram was 3323 this was BIR[facility] 2 She had an MRI and no evidence of cancer in either breast Nonhealing periareolar incision right breast believed related to scar tissue and radiation changes Patient status post bilateral reduction mammoplasty right breast had a small invasive ductal carcinoma and she underwent radiation therapy as well as on hormone therapy Plan: Probing of the area of concern in the nonhealing region of the right breast Bilateral mammogram in 1 year Continue anastrozole Following informed consent the area of concern in the right breast was probed. This was approximately 3 cm deep. The area was cleaned and the opening opened to approximately 6 mm from 3 mm in the skin surface. This was packed using Aquacel silver. The patient will follow up next week to have this changed. If she notes any changes before she will call u This does not heal we will consider wound clinic. 06-26-22 The patient is doing well at this time without complaints. Examination: The area of the incision was examined. The area was probed and was approximately 2 cm deep. The area was debrided and repacked using Aquacel silver. The patient will initiate wound care and follow-up in 4 weeks. If she notes any changes prior to this she will call us. CC: Dr. Bhagat
== END ==
LOC: WWCWWP 13:43
PROVIDERS: ATTEND Surgery
DX: R92.8 Other abnormal and inconclusive findings on diagnostic imaging of breast (principal); A48.52 Wound botulism

== ENCOUNTER → 2022-08-14 | Outpatient (CLI) | payer MEDICARE ==
[2022-08-14 08:57] VITALS: BP 143/81; PULSE 80; RESP 17; TEMP 97.9
--- NOTE | 2022-08-14 09:19 | P.PN ---
Subjective Progress Note Date: 08/14/22 right breast encapsulated papillary carcinoma: [id number]+Pr+Her2-G2 Eboni is a 71-year-old white female who initially presented with an abnormal right breast mammogram in January 2021. She had additional imaging and core biopsy which revealed a papilloma. She subsequently underwent a right breast lumpectomy and a left breast reduction mammoplasty 07-02-21. On the lumpectomy specimen there was actually noted to be an encapsulated papillary carcinoma. No sentinel lymph nodes were obtained. The patient on pathology was noted to have a grade2 6 mm invasive ductal carcinoma. The lateral margin was positive the capsular papillary carcinoma. This was ER/RI positive and HER-2/ross negative. She had an Oncotype score of 3. The patient noted drainage for the right breast 2 weeks ago and then it started getting more red. Drainage was in the periareolar area. She started doxycline and and it is much better. She also scheduled an MRI of the breast. She has not had any fever or chills. Note 02-03-22 Dr. Zepeda reviewed note 12-25-21 radiation oncology reviewed She completed adjuvant radiation therapy 11-27-21 She is presently tolerating anestrazole 04-18-22 mammogram from 04-18-22 [facility] 2 MRI 02-27-22 no evidence of cancer in either breast The patient continues to have an open area at the periareolar region superiorly in the right breast 05-01-22 The patient's breast wound is healing well. There is there is less packing that is able to be placed and she is not having any drainage. She has not had any fever or chills. She is not complaining of any pain in her breast. 06-19-22 The patient continues to have a small area of opening at the periareolar region on the right breast. She states that she can probe it and that the area although very small at the skin surface probe somewhat deep. Otherwise she is not complaining of any lumps masses or nodules of concern. She did complete radiation therapy on [id number]. She is presently tolerating anastrozole. Her last bilateral mammogram was 3323 this was BIRADS 2 She had an MRI and no evidence of cancer in either breast 06-26-22 The patient is doing well at this time without complaints. Examination: The area of the incision was examined. The area was probed and was approximately 2 cm deep. The area was debrided and repacked using Aquacel silver. The patient will initiate wound care and follow-up in 4 weeks. If she notes any changes prior to this she will call us. 08-14-[address] Zepeda reviewed continue anaastrazole Nonhealing periareolar incision right breast believed related to scar tissue and radiation changes Patient status post bilateral reduction mammoplasty right breast had a small invasive ductal carcinoma and she underwent radiation therapy as well as on hormone therapy Plan: Probing of the area of concern in the nonhealing region of the right breast Bilateral mammogram in 1 year Continue anastrozole Following informed consent the area of concern in the right breast was probed. This was approximately 3 cm deep. The area was cleaned and the opening opened to approximately 6 mm from 3 mm in the skin surface. This was packed using Aquacel silver. The patient will follow up next week to have this changed. If she notes any changes before she will call u This does not heal we will consider wound clinic. CC: Dr. Bhagat Objective - Vital Signs Vital signs: Vital Signs Temp 97.9 F 08/14/22 08:54 Pulse 80 08/14/22 08:54 Resp 17 08/14/22 08:54 BP 143/81 08/14/22 08:54 Pulse Ox 97 08/14/22 08:54 FiO2 Intake & Output 08/13/22 08/14/22 08/14/22 18:59 06:59 18:59 Weight 90.718 kg - Constitutional General appearance: Present: cooperative - EENT Eyes: Present: EOMI ENT: Present: hearing grossly normal - Neck Neck: Present: normal ROM - Respiratory Respiratory: bilateral: CTA - Cardiovascular Rhythm: regular - Gastrointestinal General gastrointestinal: Present: soft - Integumentary Integumentary: Present: normal turgor - Musculoskeletal Musculoskeletal: Present: gait normal - Psychiatric Psychiatric: Present: A&O x's 3, appropriate affect, intact judgment & insight - Additional findings Additional findings: Breast Exam: BRA: 40D Inspection: Postsurgical changes bilateral, complete healing of the right breast nipple areolar area Palpation: Right breast: Multi-positional exam post radiation and surgical changes no dominant masses or nodules of concern Right axilla: No adenopathy of concern Left breast: Multi-positional exam postsurgical changes no dominant masses or nodules of concern Left axilla: No adenopathy of concern Assessment and Plan Assessment: Impression: Patient is doing well at this time status post bilateral reduction mammoplasty and resection of right breast encapsulated papillary carcinoma 07-02-21: T1 N0 M0 ER +Pr+ HER-2 negative G2/patient completed radiation therapy and is presently on anastrozole she did not have any chemotherapy she is following with medical and radiation oncology She initially had some healing difficulty of the right breast which has resolved at this time Plan: Bilateral mammogram in April 2023 follow up in 6 months Continue anastrozole Continue follow with medical and radiation oncology CC: Dr. Bhagat
== END ==
LOC: WWCWWP 08:31
PROVIDERS: ATTEND Surgery
DX: Z51.0 Encounter for antineoplastic radiation therapy (principal); C50.911 Malignant neoplasm of unspecified site of right female breast; Z17.0 Estrogen receptor positive status [ER+]; Z79.811 Long term (current) use of aromatase inhibitors; Z92.3 Personal history of irradiation

== ENCOUNTER 2022-09-28 06:11 | Emergency (ER) | payer MEDICARE ==
[2022-09-28 06:21] VITALS: RESP 18; TEMP 98
--- NOTE | 2022-09-28 06:29 | ED ---
Head Injury HPI - General Chief complaint: Head Injury Stated complaint: fell on cement Time Seen by Provider: 09/28/22 06:19 Source: patient, RN notes reviewed Mode of arrival: ambulatory Limitations: no limitations - History of Present Illness Initial comments: This a 71-year-old female presents emergency Department with chief complaint of trip and fall. Patient states she tripped on the edge of the curb. She fell directly onto concrete. Patient complains of right periorbital pain, swelling. Denies any lacerations. She does complain of mild headache denies any dizziness, neck pain or feeling lightheaded. No abdominal discomfort she does complain of right-sided rib pain from a fall a week ago. She states she reinjured is on this fall today. She has a maternal patient saw her knees. She states she is up-to-date on tetanus. Patient has no visual disturbance denies any upper extremity injuries. - Related Data Home Medications Medication Instructions Recorded Confirmed Metoprolol Succinate [Toprol XL] 50 mg PO QAM 11/02/13 08/14/22 Multivitamins, Thera [Multivitamin 1 tab PO DAILY 08/17/14 08/14/22 (formulary)] Vitamin A (10,000 Dd=2871 Mcg) 2,400 mcg PO DAILY 04/04/16 08/14/22 Omeprazole 20 mg PO DAILY 07/07/18 08/14/22 Mirabegron [Myrbetriq] 25 mg PO DAILY 02/28/21 08/14/22 Repaglinide [Prandin] 2 mg PO AC-TID 02/28/21 08/14/22 busPIRone HCL 10 mg PO BID 02/28/21 08/14/22 Semaglutide [Rybelsus] 14 mg PO DAILY 03/05/21 08/14/22 Losartan/Hydrochlorothiazide 1 tab PO DAILY 05/09/21 08/14/22 [Losartan-Hctz 100-25 mg Tab] ALPRAZolam [Xanax] 0.25 mg PO BID PRN 05/10/21 08/14/22 Cholecalciferol [Vitamin D3 (125 250 mcg PO DAILY 05/10/21 08/14/22 Mcg = 5000 Iu)] Magnesium 250 mg PO DAILY 05/10/21 08/14/22 Pioglitazone [Actos] 45 mg PO DAILY 05/10/21 08/14/22 Venlafaxine HCl [Effexor XR] 150 mg PO DAILY 05/10/21 08/14/22 Vit C/E/Zn/Coppr/Lutein/Zeaxan 2 cap PO DAILY 05/10/21 08/14/22 [Preservision Areds 2 Softgel] Zinc Gluconate [Zinc] 50 mg PO DAILY 05/10/21 08/14/22 Ascorbic Acid [Vitamin C] 500 mg PO DAILY 08/02/21 08/14/22 Calcium Carbonate [Calcium] 600 mg PO DAILY 08/02/21 08/14/22 Insulin Glargine,Hum.rec.anlog 7 units SQ DAILY@1200 08/02/21 08/14/22 [Lantus Solostar Pen] Vitamin B 150 mg PO WEEKLY 08/02/21 08/14/22 Letrozole 2.5 mg PO DAILY 08/13/21 08/14/22 Doxycycline [Vibramycin] 100 mg PO BID 02/21/22 08/14/22 Previous Rx's Medication Instructions Recorded Simvastatin [Zocor] 20 mg PO HS #90 tab 05/16/15 Allergies/Adverse reactions: Allergies Allergy/AdvReac Type Severity Reaction Status Date / Time No Known Allergies Allergy Verified 09/28/22 06:21 Review of Systems ROS Statement: Those systems with pertinent positive or pertinent negative responses have been documented in the HPI. ROS Other: All systems not noted in ROS Statement are negative. Past Medical History Past Medical History: Cancer, Diabetes Mellitus, GERD/Reflux, Hypertension, Osteoarthritis (OA) Additional Past Medical History / Comment(s): PREV HX OF SLEEP APNEA, NO LONGER NEEDS CPAP, DIABETES. Right breast cancer History of Any Multi-Drug Resistant Organisms: None Reported Past Surgical History: Bariatric Surgery, Bowel Resection, Breast Surgery, Section, Cholecystectomy, Joint Replacement, Orthopedic Surgery Additional Past Surgical History / Comment(s): Left knee replacement, EGD, BILATERAL CATARACT SURGERY, BREAST BX x3 on right side, PRECIOUS-EN-Y, bowel resection 04/12/15, feeding tube replaced 04/13/15, G TUBE REMOVED, bladder sling. Breast reduction/lumpectomy right breast June 2021 Past Anesthesia/Blood Transfusion Reactions: No Reported Reaction Past Psychological History: Anxiety, Depression Smoking Status: Never smoker Past Alcohol Use History: None Reported Past Drug Use History: None Reported - Past Family History Mother Family Medical History: Cancer Additional Family Medical History / Comment(s): uterine Father Family Medical History: Cancer Additional Family Medical History / Comment(s): PANCREATIC General Exam Limitations: no limitations General appearance: alert, in no apparent distress Head exam: Present: atraumatic, normocephalic, normal inspection Eye exam: Present: PERRL, EOMI, periorbital swelling (Mild right ecchymosis noted), periorbital tenderness. Absent: normal appearance, scleral icterus, conjunctival injection ENT exam: Present: normal exam, mucous membranes moist Neck exam: Present: normal inspection, full ROM. Absent: tenderness, meningismus, lymphadenopathy Respiratory exam: Present: normal lung sounds bilaterally, chest wall tenderness (Right-sided anterior lower ribs). Absent: respiratory distress, wheezes, rales, rhonchi, stridor Cardiovascular Exam: Present: regular rate, normal rhythm, normal heart sounds. Absent: systolic murmur, diastolic murmur, rubs, gallop, clicks Back exam: Present: normal inspection, full ROM. Absent: tenderness, paraspinal tenderness, vertebral tenderness Neurological exam: Present: alert, oriented X3, CN II-XII intact, reflexes normal. Absent: motor sensory deficit Skin exam: Present: warm, dry, intact, normal color. Absent: rash Course Vital Signs 09/28/22 09/28/22 06:19 07:29 Temperature 98 F Pulse Rate 72 74 Respiratory 18 18 Rate Blood Pressure 199/83 145/80 O2 Sat by Pulse 94 L 95 Oximetry Medical Decision Making - Medical Decision Making Was pt. sent in by a medical professional or institution (, PA, EMULSIFICATION OPERATOR, urgent care, hospital, or long-term...) When possible be specific @ -No Did you speak to anyone other than the patient for history (EMS, parent, family, police, friend...)? What history was obtained from this source @ -No Did you review nursing and triage notes (agree or disagree)? Why? @ -I reviewed and agree with nursing and triage notes Were old charts reviewed (outside hosp., previous admission, EMS record, old EKG, old radiological studies, urgent care reports/EKG's, long-term records)? Report findings @ -No old charts were reviewed Differential Diagnosis (chest pain, altered mental status, abdominal pain women, abdominal pain men, vaginal bleeding, weakness, fever, dyspnea, syncope, headache, dizziness, GI bleed, back pain, seizure, CVA, palpatations, mental health, musculoskeletal)? @ -Intracranial hemorrhage, facial fracture, facial contusion, rib fracture EKG interpreted by me (3pts min.). @ -None X-rays interpreted by me (1pt min.). @ -X-ray right rib series no acute fracture, pneumothorax CT interpreted by me (1pt min.). @ -CT brain, C-spine there is soft tissue swelling right periorbital region no acute fracture no intracranial hemorrhage or mass effect no cervical fracture U/S interpreted by me (1pt. min.). @ -None done What testing was considered but not performed or refused? (CT, X-rays, U/S, labs)? Why? @ -None What meds were considered but not given or refused? Why? @ -None Did you discuss the management of the patient with other professionals (professionals i.e. , PA, EMULSIFICATION OPERATOR, lab, RT, psych nurse, high school social studies tutor, stringer machine tender, teacher, youth probation officer, pillowcase cleaner)? Give summary @ -No Was smoking cessation discussed for >3mins.? @ -No Was critical care preformed (if so, how long)? @ -No Were there social determinants of health that impacted care today? How? (Homelessness, low income, unemployed, alcoholism, drug addiction, transportation, low edu. Level, literacy, decrease access to med. care, long term, rehab)? @ -No Was there de-escalation of care discussed even if they declined (Discuss DNR or withdrawal of care, Hospice)? DNR status @ -[No] What co-morbidities impacted this encounter? (DM, HTN, Smoking, COPD, CAD, Cancer, CVA, ARF, Chemo, Hep., AIDS, mental health diagnosis, sleep apnea, morbid obesity)? @ -[None] Was patient admitted / discharged? Hospital course, mention meds given and route, prescriptions, significant lab abnormalities, going to OR and other pertinent info. @ -[Discharge patient imaging is negative patient has a facial contusion, rib contusion patient is discharged in stable condition return parameters were discussed.] Undiagnosed new problem with uncertain prognosis? @ -[No] Drug Therapy requiring intensive monitoring for toxicity (Heparin, Nitro, Insulin, Cardizem)? @ -[No] Were any procedures done? @ -[No] Diagnosis/symptom? @ -[Fall, facial contusion, rib contusion] Acute, or Chronic, or Acute on Chronic? @ -[Acute] Uncomplicated (without systemic symptoms) or Complicated (systemic symptoms)? @ -[Uncomplicated] Side effects of treatment? @ -[No] Exacerbation, Progression, or Severe Exacerbation? @ -[No] Poses a threat to life or bodily function? How? (Chest pain, USA, ID, pneumonia, PE, COPD, DKA, ARF, appy, cholecystitis, CVA, Diverticulitis, Homicidal, Suicidal, threat to staff... and all critical care pts) @ -[No] Disposition Clinical Impression: Fall, Contusion of rib on right side, Periorbital contusion of right eye Disposition: HOME SELF-CARE Condition: Stable Instructions (If sedation given, give patient instructions): Head Injury (ED) Additional Instructions: Please return to the Emergency Department if symptoms worsen or any other concerns. Is patient prescribed a controlled substance at d/c from ED?: No Referrals: Leah Bhagat MD [Primary Care Provider] - 1-2 days Time of Disposition: 07:58
[2022-09-28 07:31] VITALS: BP 145/80; PULSE 74
--- NOTE | 2022-09-28 07:41 | CT ---
EXAMINATION TYPE: CT brain cspine wo con DATE OF EXAM: 09/28/2022 COMPARISON: 05/09/2021 HISTORY: trauma, fall, bruising and swelling RT eye CT DLP: 1562.[address] of the brain was performed. The ventricles, basal cisterns and sulci overlying the cerebral convexities demonstrate mild enlargem ent. There is no evidence for intracranial hemorrhage or sulcal effacement. There is decreased attenuatio n about the periventricular white matter and deep white matter of both cerebral hemispheres, compatib le with chronic small vessel ischemia. No mass effects are seen. If symptoms persist consider MRI. Osseous calvarium is intact. Right supraorbital soft tissue swelling noted. IMPRESSION: 1. Age related atrophic and chronic small vessel ischemic change without acute intracranial process seen at this time. CT Cervical Spine: Unenhanced CT of the cervical spine was performed with bone and soft tissue window settings submitted . Coronal and sagittal reconstruction is obtained. There is normal alignment and prevertebral soft tissues. No evidence for acute cervical fracture . Scattered degenerative disc disease and spondylosis. Biapical scarring. IMPRESSION: 1. No evidence for acute fracture or subluxation of the cervical spine.
--- NOTE | 2022-09-28 07:46 | XR ---
EXAMINATION TYPE: XR ribs RT w pa chest xray DATE OF EXAM: 09/28/2022 COMPARISON: NONE HISTORY: Pain TECHNIQUE: Single view of the chest 2 views of the ribs are submitted. FINDINGS: The lungs are clear. No Evidence for pneumothorax. No evidence for focal contusion. Medi astinal structures are midline. Evaluation of the ribs fails to demonstrate evidence for displaced r ib fracture or secondary sign of rib fracture. IMPRESSION: Negative study
== END 2022-09-28 08:08 | disposition home or self-care (01) ==
LOC: EC 06:11
DX: S00.11XA Contusion of right eyelid and periocular area, initial encounter (principal); S20.211A Contusion of right front wall of thorax, initial encounter; E11.9 Type 2 diabetes mellitus without complications; I10 Essential (primary) hypertension; K21.9 Gastro-esophageal reflux disease without esophagitis; M19.90 Unspecified osteoarthritis, unspecified site; F32.A Depression, unspecified; F41.9 Anxiety disorder, unspecified; Z79.84 Long term (current) use of oral hypoglycemic drugs; Z79.4 Long term (current) use of insulin; Z79.899 Other long term (current) drug therapy; Z85.3 Personal history of malignant neoplasm of breast; W01.0XXA Fall on same level from slipping, tripping and stumbling without subsequent striking against object, initial encounter
CPT/HCPCS: 70450; 72125; 99284

== ENCOUNTER → 2022-12-09 | Outpatient (CLI) | payer MEDICARE ==
[2022-12-09 16:08] LABS: Chol/HDL Ratio 2.63 Ratio
[2022-12-09 16:09] LABS: ALT 16 U/L (8-44); AST 22 U/L (13-35); Albumin 3.9 d/dL (3.8-4.9); Albumin/Globulin Ratio 1.77 Ratio (1.60-3.17); Alkaline Phosphatase 131 U/L (41-126); BUN/Creat Ratio 19.44 Ratio (12.00-20.00); Blood Urea Nitrogen 17.5 mg/dL (9.0-27.0); Calcium 9.4 mg/dL (8.7-10.3); Chloride 106 mmol/L (96-109); Globulin 2.2 d/dL (1.6-3.3); Glucose 189 mg/dL (70-110); LDL Cholesterol,Calculated 67.3 mg/dL (0.0-131.0); Potassium 3.8 mmol/L (3.5-5.5); Sodium 142 mmol/L (135-145); Total Bilirubin 0.4 mg/dL (0.3-1.2); Total Protein 6.1 d/dL (6.2-8.2)
[2022-12-09 17:42] LABS: Basophils # (A) 0.03 X 10*3/uL (0.00-0.10); Basophils % (A) 0.5 %; Eosinophils % (A) 1.7 %; HCT 33.8 % (37.2-46.3); HGB 10.1 d/dL (12.0-15.0); Lymphocytes % (A) 12.1 %; MCH 26.2 pg (27.0-32.0); MCHC 29.9 d/dL (32.0-37.0); MCV 87.8 FL (80.0-97.0); Mean Platelet Volume 10.4 FL (9.5-12.2); Monocytes # (A) 0.48 X 10*3/uL (0.20-1.00); Monocytes % (A) 8.3 %; NRBC Per 100 WBC 0 X 10*3/uL (0.00-0.01); Neutrophils # (A) 4.45 X 10*3/uL (1.80-7.70); Neutrophils % (A) 77.2 %; Platelet Count 330 X 10*3/uL (140-440); RBC 3.85 X 10*6/uL (4.10-5.20); WBC 5.77 X 10*3/uL (4.50-10.00)
== END | disposition home or self-care (01) ==
LOC: LABWHC1 10:18
PROVIDERS: ATTEND Family Medicine
DX: I10 Essential (primary) hypertension (principal); E78.5 Hyperlipidemia, unspecified; R32 Unspecified urinary incontinence
CPT/HCPCS: 36415; 80053; 80061; 83036; 84443; 85025

== ENCOUNTER → 2023-01-23 | Outpatient (CLI) | payer MEDICARE ==
--- NOTE | 2023-01-23 10:44 | P.PN ---
Subjective Progress Note Date: 01/23/23 Intraductal papilloma right breast/bilateral macromastia Eboni is a 70 year old female seen in consultation for Dr. Bhagat regarding the radiographic abnormality in the right breast. She had bilateral screening mammogram performed on [id number]. An ultrasound of the right breast was recommended. This revealed a lesion in the middle posterior position of the right breast for which an ultrasound core biopsy was recommended. The patient is able to feel a lesion in her right breast for about one month. It is not tender. It has not changed in size. She has not had any recent trauma or infection in either breast. She has had an on open biopsy and a stero-biopsy of the breast in the past. She does not recall which side. Neither were cancer. Was not complaining of any nipple discharge or skin changes. She was not complaining of any pain in her breasts. She underwent a right breast ultrasound core biopsy on 1821 which was a intraductal papilloma. She is still able to feel the palpable spot in the right breast where the biopsy was performed which revealed an intraductal papilloma. This was palpable prior to the biopsy. The patient has marked macromastia, she complains of shoulder notching, as well as repeated fungal infections under her breast. She had bilateral reduction mammoplasty with removal of the intraductal papilloma on 07-02-21. 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 No sentinel nodes were obtained. 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 The lateral margin was positive. It was ER/MN positive and HER-2 negative. She had an Oncotype score of 3. She subsequently underwent radiation therapy completing this on [id number]. She is presently on anastrozole She had postoperative chronic draining sinus of the right breast which has since healed. The patient has no new lumps masses or nodules of concern in either breast. She had a bilateral mammogram and 3323 which was BIRADS 2 She is going to have a bilateral mammogram in April 2023. The patient has had a recent 35 pound weight loss she is taking Ozempic. Note radiation oncology 12-26-22 reviewed Caffeine: tea 3 cups/day nicotine: none chocolate: rare BCP: less than 1 year in remote past hormones: none Family history: mother: uterine cancer father: pancreatic cancer Hormonal History: menarche: 15 , breast fed: yes, age at first : 28 menopause: 55 hormones: none Surgical History: bilateral cataracts bladder sling left knee replacement gastric bypass ruptured bypass repaired left knee replacement bilateral reduction mammoplasty Medical History: HTN DM Social History: nicotine: none alcohol: none drugs: none - Constitutional Constitutional: Denies chills, Denies fever - EENT Comment: retinal hole left eye Eyes: bilateral as per HPI, denies blurred vision, denies pain Ears: deny: decreased hearing, tinnitus Ears, nose, mouth and throat: Denies headache, Denies sore throat - Breasts Breasts: bilateral: as per HPI - Cardiovascular Cardiovascular: Denies chest pain, Denies shortness of breath - Respiratory Respiratory: Denies cough - Gastrointestinal Gastrointestinal: Reports as per HPI, Denies abdominal pain, Denies diarrhea, Denies nausea, Denies vomiting - Genitourinary (Female) Genitourinary: Denies dysuria, Denies hematuria - Menstruation Menstruation: Reports postmenopausal - Musculoskeletal Comment: arthritis - Integumentary Integumentary: Denies pruritus, Denies rash - Neurological Neurological: Denies numbness, Denies weakness - Psychiatric Psychiatric: Reports depression - Endocrine Endocrine: Denies fatigue, Denies weight change - Hematologic/Lymphatic Comment: none - Allergic/Immunologic Allergic/Immunologic: Reports as per HPI Objective - Vital Signs Vital signs: Intake & Output 01/22/23 01/23/23 01/23/23 18:59 06:59 18:59 Weight 90.718 kg - Constitutional General appearance: Present: cooperative - EENT Eyes: Present: EOMI ENT: Present: hearing grossly normal - Neck Neck: Present: normal ROM - Respiratory Respiratory: bilateral: CTA - Cardiovascular Rhythm: regular Heart sounds: normal: S1, S2 - Integumentary Integumentary: Present: normal turgor - Musculoskeletal Musculoskeletal: Present: gait normal - Psychiatric Psychiatric: Present: A&O x's 3, appropriate affect, intact judgment & insight - Additional findings Additional findings: Breast Exam: BRA: 38C inspection: Asymmetry of the breasts secondary to bilateral reduction surgery, right breast slightly smaller than left breast with some inversion of the nipple. Palpation: Right breast: Multi-positional exam fibrocystic changes no dominant masses or nodules of concern, postsurgical and radiation changes, some inversion of the superior aspect of the nipple areolar complex Right axilla: No adenopathy of concern Left breast: Postsurgical changes fibrocystic changes no dominant masses or nodules of concern Left axilla: No adenopathy of concern Assessment and Plan Assessment: Impression: No evidence of recurrent right breast carcinoma Patient due for bilateral mammogram in April 2023 Breast is completely healed at this time Recent 35 pound weight loss Diabetes HTN right knee pain Plan: Bilateral mammogram in April 2023 Continue to follow with medical oncology/continue anestrazole Continue follow with radiation oncology Follow-up here in April after bilateral mammogram CC: Dr. Bhagat
[2023-01-23 11:01] VITALS: BP 123/76; PULSE 76; RESP 17; TEMP 98.5
== END ==
LOC: WWCWWP 09:57
PROVIDERS: ATTEND Surgery
DX: I10 Essential (primary) hypertension (principal); M25.561 Pain in right knee; N62 Hypertrophy of breast; E11.36 Type 2 diabetes mellitus with diabetic cataract; Z92.3 Personal history of irradiation; Z85.3 Personal history of malignant neoplasm of breast; Z79.4 Long term (current) use of insulin; Z79.899 Other long term (current) drug therapy; Z79.84 Long term (current) use of oral hypoglycemic drugs

== ENCOUNTER → 2023-02-05 | Outpatient (CLI) | payer MEDICARE ==
[2023-02-05 15:02] LABS: Basophils # (A) 0.04 X 10*3/uL (0.00-0.10); Basophils % (A) 0.8 %; Eosinophils # (A) 0.24 X 10*3/uL (0.04-0.35); Eosinophils % (A) 4.5 %; HCT 38.9 % (37.2-46.3); HGB 11.8 g/dL (12.0-15.0); Lymphocytes # (A) 0.84 X 10*3/uL (0.90-5.00); Lymphocytes % (A) 15.8 %; MCH 26.7 pg (27.0-32.0); MCHC 30.3 g/dL (32.0-37.0); Mean Platelet Volume 10.1 FL (9.5-12.2); Monocytes # (A) 0.51 X 10*3/uL (0.20-1.00); Monocytes % (A) 9.6 %; NRBC Per 100 WBC 0 X 10*3/uL (0.00-0.01); Neutrophils # (A) 3.65 X 10*3/uL (1.80-7.70); Neutrophils % (A) 68.9 %; Platelet Count 303 X 10*3/uL (140-440); RBC 4.42 X 10*6/uL (4.10-5.20); RDW 17.2 % (11.5-14.5)
[2023-02-05 15:58] LABS: % Iron Saturation 15.75 (12.00-45.00); Ferritin 23.6 ng/mL (10.0-291.0)
[2023-02-06 12:04] LABS: Zinc, Serum 72 ug/dL (60-130)
== END | disposition home or self-care (01) ==
LOC: LABWHC1 10:21
PROVIDERS: ATTEND Family Medicine
DX: D50.9 Iron deficiency anemia, unspecified (principal); Z98.84 Bariatric surgery status
CPT/HCPCS: 36415; 82525; 82728; 83540; 83550; 84630; 85025

== ENCOUNTER → 2023-04-10 | Outpatient (CLI) | payer MEDICARE ==
--- NOTE | 2023-04-10 12:50 | XR ---
EXAM TYPE: LUMBAR SPINE X RAY SERIES COMPARISON: NONE HISTORY: Pain TECHNIQUE: 4 views are submitted. FINDINGS: Alignment is anatomic. The pedicles are intact. The transverse processes are intact. There is scol iotic curvature of the spine. Surgical clips gallbladder fossa. Grade 1 anterolisthesis L3-4 and L4-L 5. Multilevel facet arthropathy. There is multilevel mild to moderate degenerative disc disease. Gene ralized osteopenia. IMPRESSION: 1. Multilevel degenerative disc disease with grade 1 anterolisthesis L3-4 and L4-5. Facet arthropathy likely contributes to multilevel foraminal encroachment.
[2023-04-10 15:20] LABS: Basophils # (A) 0.03 X 10*3/uL (0.00-0.10); Basophils % (A) 0.5 %; Eosinophils # (A) 0.09 X 10*3/uL (0.04-0.35); Eosinophils % (A) 1.4 %; HCT 34.4 % (37.2-46.3); HGB 10.8 g/dL (12.0-15.0); Lymphocytes # (A) 1.26 X 10*3/uL (0.90-5.00); MCH 26.5 pg (27.0-32.0); MCHC 31.4 g/dL (32.0-37.0); MCV 84.5 FL (80.0-97.0); Mean Platelet Volume 9.7 FL (9.5-12.2); Monocytes # (A) 0.55 X 10*3/uL (0.20-1.00); Monocytes % (A) 8.3 %; NRBC Per 100 WBC 0 X 10*3/uL (0.00-0.01); Neutrophils % (A) 70.6 %; Platelet Count 331 X 10*3/uL (140-440); RBC 4.07 X 10*6/uL (4.10-5.20); RDW 14.7 % (11.5-14.5); WBC 6.64 X 10*3/uL (4.50-10.00)
[2023-04-10 15:34] LABS: % Iron Saturation 11.86 (12.00-45.00); ALT 12 U/L (8-44); AST 20 U/L (13-35); Albumin 4.2 g/dL (3.8-4.9); Albumin/Globulin Ratio 1.62 Ratio (1.60-3.17); Alkaline Phosphatase 133 U/L (41-126); BUN/Creat Ratio 17.38 Ratio (12.00-20.00); Blood Urea Nitrogen 13.9 mg/dL (9.0-27.0); Calcium 9.9 mg/dL (8.7-10.3); Carbon Dioxide 26.4 mmol/L (21.6-31.8); Chloride 106 mmol/L (96-109); Chol/HDL Ratio 2.72 Ratio; Globulin 2.6 g/dL (1.6-3.3); Glucose 98 mg/dL (70-110); Iron 51 UG/DL (50-170); Potassium 3.9 mmol/L (3.5-5.5); Sodium 144 mmol/L (135-145); Total Bilirubin 0.5 mg/dL (0.3-1.2); Total Iron Binding Capacity 430 UG/DL (228-460); Total Protein 6.8 g/dL (6.2-8.2)
== END | disposition home or self-care (01) ==
LOC: LABWHC1 11:37
PROVIDERS: ATTEND Family Medicine
DX: Z00.01 Encounter for general adult medical examination with abnormal findings (principal); M43.16 Spondylolisthesis, lumbar region; M51.36 Other intervertebral disc degeneration, lumbar region; M47.816 Spondylosis without myelopathy or radiculopathy, lumbar region; C50.611 Malignant neoplasm of axillary tail of right female breast; D50.9 Iron deficiency anemia, unspecified; I10 Essential (primary) hypertension; E11.65 Type 2 diabetes mellitus with hyperglycemia; M54.41 Lumbago with sciatica, right side; E78.5 Hyperlipidemia, unspecified; E63.9 Nutritional deficiency, unspecified; Z98.84 Bariatric surgery status
CPT/HCPCS: 36415; 72100; 80053; 80061; 82043; 82570; 82607; 83036; 83540; 83550; 84255; 84425; 84443; 84590; 85025

== ENCOUNTER → 2023-04-30 | Outpatient (CLI) | payer MEDICARE ==
--- NOTE | 2023-04-30 15:44 | P.PN ---
Subjective Progress Note Date: 04/30/23 Principal diagnosis: encapsulated papillary carcinoma/ right breast 04-20-23 Intraductal papilloma right breast/bilateral macromastia Eboni is a 70 year old female seen in consultation for Dr. Bhagat regarding the radiographic abnormality in the right breast. She had bilateral screening mammogram performed on [id number]. An ultrasound of the right breast was recommended. This revealed a lesion in the middle posterior position of the right breast for which an ultrasound core biopsy was recommended. The patient is able to feel a lesion in her right breast for about one month. It is not tender. It has not changed in size. She has not had any recent trauma or infection in either breast. She has had an on open biopsy and a stero-biopsy of the breast in the past. She does not recall which side. Neither were cancer. Was not complaining of any nipple discharge or skin changes. She was not complaining of any pain in her breasts. She underwent a right breast ultrasound core biopsy on 1821 which was a intraductal papilloma. She is still able to feel the palpable spot in the right breast where the biopsy was performed which revealed an intraductal papilloma. This was palpable prior to the biopsy. The patient has marked macromastia, she complains of shoulder notching, as well as repeated fungal infections under her breast. She had bilateral reduction mammoplasty with removal of the intraductal papilloma on 07-02-21. 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 No sentinel nodes were obtained. 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 The lateral margin was positive. It was ER/KS positive and HER-2 negative. She had an Oncotype score of 3. She subsequently underwent radiation therapy completing this on [id number]. She is presently on anastrozole She had postoperative chronic draining sinus of the right breast which has since healed. The patient has no new lumps masses or nodules of concern in either breast. She had a bilateral mammogram and which was BIRADS 2 She is going to have a bilateral mammogram in April 2024 The patient has had a recent 35 pound weight loss she is taking Ozempic. Note medical oncology 03-03-23 reviewed; continue letrazole Caffeine: tea 3 cups/day nicotine: none chocolate: rare BCP: less than 1 year in remote past hormones: none Family history: mother: uterine cancer father: pancreatic cancer Hormonal History: menarche: 15 , breast fed: yes, age at first : 28 menopause: 55 hormones: none Surgical History: bilateral cataracts bladder sling left knee replacement gastric bypass ruptured bypass repaired left knee replacement bilateral reduction mammoplasty Medical History: HTN DM bleeding ulcer left knee pain Social History: nicotine: none alcohol: none drugs: none - Constitutional Constitutional: Denies chills, Denies fever - EENT Comment: retinal hole left eye Eyes: bilateral as per HPI, denies blurred vision, denies pain Ears: deny: decreased hearing, tinnitus Ears, nose, mouth and throat: Denies headache, Denies sore throat - Breasts Breasts: bilateral: as per HPI - Cardiovascular Cardiovascular: Denies chest pain, Denies shortness of breath - Respiratory Respiratory: Denies cough - Gastrointestinal Gastrointestinal: Reports as per HPI, Denies abdominal pain, Denies diarrhea, Denies nausea, Denies vomiting - Genitourinary (Female) Genitourinary: Denies dysuria, Denies hematuria - Menstruation Menstruation: Reports postmenopausal - Musculoskeletal Comment: arthritis - Integumentary Integumentary: Denies pruritus, Denies rash - Neurological Neurological: Denies numbness, Denies weakness - Psychiatric Psychiatric: Reports depression - Endocrine Endocrine: Denies fatigue, Denies weight change - Hematologic/Lymphatic Comment: none - Allergic/Immunologic Allergic/Immunologic: Reports as per HPI Objective - Constitutional General appearance: Present: cooperative - EENT Eyes: Present: EOMI ENT: Present: hearing grossly normal - Neck Neck: Present: normal ROM - Respiratory Respiratory: bilateral: CTA - Cardiovascular Rhythm: regular Heart sounds: normal: S1, S2 - Integumentary Integumentary: Present: normal turgor - Musculoskeletal Musculoskeletal: Present: gait normal - Psychiatric Psychiatric: Present: A&O x's 3, appropriate affect, intact judgment & insight - Additional findings Additional findings: Breast Exam: BRA: 38C inspection: Asymmetry of the breasts secondary to bilateral reduction surgery, right breast slightly smaller than left breast with some inversion of the nipple. Palpation: Right breast: Multi-positional exam fibrocystic changes no dominant masses or nodules of concern, postsurgical and radiation changes, some inversion of the superior aspect of the nipple areolar complex Right axilla: No adenopathy of concern Left breast: Postsurgical changes fibrocystic changes no dominant masses or nodules of concern Left axilla: No adenopathy of concern Assessment and Plan Assessment: Impression: No evidence of recurrent right breast carcinoma Patient due for bilateral mammogram in April 2024 Breast is completely healed at this time Diabetes HTN right knee pain bilateral mammogram 04-29-24 BIRAD 2 Plan: Bilateral mammogram in April 2024 Continue to follow with medical oncology/continue anestrazole Continue follow with radiation oncology Follow-up here in 6 months CC: Dr. Bhagat
[2023-04-30 15:53] VITALS: BP 152/100; PULSE 93; RESP 14; TEMP 97.5
== END ==
LOC: WWCWWP 15:22
PROVIDERS: ATTEND Surgery
DX: D24.1 Benign neoplasm of right breast (principal); N62 Hypertrophy of breast; E11.9 Type 2 diabetes mellitus without complications; I10 Essential (primary) hypertension; T81.89XA Other complications of procedures, not elsewhere classified, initial encounter; N64.89 Other specified disorders of breast; M25.561 Pain in right knee; Z79.899 Other long term (current) drug therapy; Z79.84 Long term (current) use of oral hypoglycemic drugs; Z79.4 Long term (current) use of insulin

== ENCOUNTER 2023-05-05 11:26 | Emergency (ER) | payer MEDICARE ==
[2023-05-05] MEDS ORDERED: IOPAMIDOL CONTRAST (ORAL USE) VIAL PO PRN (12:10)
--- NOTE | 2023-05-05 12:26 | ED ---
Abdominal Pain HPI - General Chief Complaint: Abdominal Pain Stated Complaint: Abd Pain, Gasto Ulcers Time Seen by Provider: 05/05/23 11:39 Source: patient, RN notes reviewed Mode of arrival: ambulatory Limitations: no limitations - History of Present Illness Initial Comments: 72-year-old female presents emergency department complaint of abdominal pain, epigastric pain. Patient states that she did have recent EGD by Dr. Poe showing some ulcers. She states she is concerned that she had some worsening pain that feels similar to her prior rupture of her gastric bypass. She states she had gastric bypass 10 years ago had a rupture 9 years ago. She states she sees Dr. Quintana. She denies any fevers or chills. She states there is a lump in her epigastric region. - Related Data Home Medications Medication Instructions Recorded Confirmed Metoprolol Succinate [Toprol XL] 50 mg PO DAILY 11/02/13 05/05/23 Multivitamins, Thera [Multivitamin 1 tab PO DAILY 08/17/14 05/05/23 (formulary)] Vitamin A (10,000 Mt=1498 Mcg) 10,000 mcg PO DAILY 04/04/16 05/05/23 Repaglinide [Prandin] 4 mg PO AC-TID 02/28/21 05/05/23 busPIRone HCL 10 mg PO BID 02/28/21 05/05/23 Losartan/Hydrochlorothiazide 1 tab PO DAILY 05/09/21 05/05/23 [Losartan-Hctz 100-25 mg Tab] ALPRAZolam [Xanax] 0.25 mg PO BID PRN 05/10/21 05/05/23 Cholecalciferol [Vitamin D3 (125 250 mcg PO DAILY 05/10/21 05/05/23 Mcg = 5000 Iu)] Magnesium 250 mg PO DAILY 05/10/21 05/05/23 Pioglitazone [Actos] 45 mg PO DAILY 05/10/21 05/05/23 Venlafaxine HCl [Effexor XR] 150 mg PO DAILY 05/10/21 05/05/23 Vit C/E/Zn/Coppr/Lutein/Zeaxan 2 cap PO DAILY 05/10/21 05/05/23 [Preservision Areds 2 Softgel] Zinc Gluconate [Zinc] 50 mg PO DAILY 05/10/21 05/05/23 Calcium Carbonate [Calcium] 600 mg PO DAILY 08/02/21 05/05/23 Letrozole 2.5 mg PO DAILY 08/13/21 05/05/23 DULoxetine HCL [Cymbalta] 60 mg PO DAILY 05/05/23 05/05/23 Ferrous Sulfate [Feosol] 325 mg PO DAILY 05/05/23 05/05/23 Gabapentin 300 mg PO BID 05/05/23 05/05/23 Insulin Glargine,Hum.rec.anlog 35 unit SQ DAILY 05/05/23 05/05/23 [Basaglar Kwikpen U-100] Mirabegron [Myrbetriq] 50 mg PO DAILY 05/05/23 05/05/23 QUEtiapine [SEROquel] 25 mg PO HS 05/05/23 05/05/23 Semaglutide [Ozempic] 2 mg SQ MO 05/05/23 05/05/23 Vitamin B-12(Unknown Dose) 1 tab PO MO 05/05/23 05/05/23 Previous Rx's Medication Instructions Recorded Simvastatin [Zocor] 20 mg PO HS #90 tab 05/16/15 Allergies Allergy/AdvReac Type Severity Reaction Status Date / Time No Known Allergies Allergy Verified 05/05/23 15:49 Review of Systems ROS Statement: Those systems with pertinent positive or pertinent negative responses have been documented in the HPI. ROS Other: All systems not noted in ROS Statement are negative. Past Medical History Past Medical History: Cancer, Diabetes Mellitus, GERD/Reflux, Hypertension, Osteoarthritis (OA) Additional Past Medical History / Comment(s): PREV HX OF SLEEP APNEA, NO LONGER NEEDS CPAP, DIABETES. Right breast cancer, gastric ulcers History of Any Multi-Drug Resistant Organisms: None Reported Past Surgical History: Bariatric Surgery, Bowel Resection, Breast Surgery, Section, Cholecystectomy, Joint Replacement, Orthopedic Surgery Additional Past Surgical History / Comment(s): Left knee replacement, EGD, BILATERAL CATARACT SURGERY, BREAST BX x3 on right side, PRECIOUS-EN-Y, bowel resection 04/12/15, feeding tube replaced 04/13/15, G TUBE REMOVED, bladder sling. Breast reduction/lumpectomy right breast June 2021 Past Anesthesia/Blood Transfusion Reactions: No Reported Reaction Past Psychological History: Anxiety, Depression Smoking Status: Never smoker Past Alcohol Use History: Rare Past Drug Use History: None Reported - Past Family History Mother Family Medical History: Cancer Additional Family Medical History / Comment(s): uterine Father Family Medical History: Cancer Additional Family Medical History / Comment(s): PANCREATIC General Exam Limitations: no limitations General appearance: alert, in no apparent distress Head exam: Present: atraumatic, normocephalic, normal inspection Eye exam: Present: normal appearance, PERRL, EOMI. Absent: scleral icterus, conjunctival injection, periorbital swelling ENT exam: Present: normal exam, mucous membranes moist Neck exam: Present: normal inspection. Absent: tenderness, meningismus, lymphadenopathy Respiratory exam: Present: normal lung sounds bilaterally. Absent: respiratory distress, wheezes, rales, rhonchi, stridor Cardiovascular Exam: Present: regular rate, normal rhythm, normal heart sounds. Absent: systolic murmur, diastolic murmur, rubs, gallop, clicks GI/Abdominal exam: Present: soft, tenderness, normal bowel sounds. Absent: guarding, rebound, rigid Back exam: Absent: CVA tenderness (R), CVA tenderness (L) Neurological exam: Present: alert Course Vital Signs 05/05/23 05/05/23 11:45 15:59 Temperature 98.3 F 98.2 F Pulse Rate 94 91 Respiratory 20 18 Rate Blood Pressure 187/111 158/98 O2 Sat by Pulse 100 99 Oximetry Medical Decision Making - Medical Decision Making Was pt. sent in by a medical professional or institution (, PA, AIR DIRECTOR, urgent care, hospital, or usp...) When possible be specific @ -No Did you speak to anyone other than the patient for history (EMS, parent, family, police, friend...)? What history was obtained from this source @ -No Did you review nursing and triage notes (agree or disagree)? Why? @ -I reviewed and agree with nursing and triage notes Were old charts reviewed (outside hosp., previous admission, EMS record, old EKG, old radiological studies, urgent care reports/EKG's, usp records)? Report findings @ -No old charts were reviewed Differential Diagnosis (chest pain, altered mental status, abdominal pain women, abdominal pain men, vaginal bleeding, weakness, fever, dyspnea, syncope, headache, dizziness, GI bleed, back pain, seizure, CVA, palpatations, mental health, musculoskeletal)? @ -Differential Abdominal Pain Women: Appendicitis, Cholecystitis, diverticulosis, ischemic bowel, pancreatitis, hepatitis, UTI, gastroenteritis, AAA, incarcerated hernia, bowel obstruction, constipation, inflammatory bowel, hepatitis, peptic ulcer disease, splenic infarction, perforated viscus, vulvitis, ovarian torsion, PID, kidney stone, placenta abruption, this is not meant to be an all-inclusive list EKG interpreted by me (3pts min.). @ -None X-rays interpreted by me (1pt min.). @ -None done CT interpreted by me (1pt min.). @ -CT abdomen pelvis showing ventral hernia no other acute intra-abdominal process U/S interpreted by me (1pt. min.). @ -None done What testing was considered but not performed or refused? (CT, X-rays, U/S, labs)? Why? @ -None What meds were considered but not given or refused? Why? @ -None Did you discuss the management of the patient with other professionals (professionals i.e. , PA, AIR DIRECTOR, lab, RT, psych nurse, social welfare administrator, sustainability specialist, teacher, sales promotion officer, rn case mgr)? Give summary @ -No Was smoking cessation discussed for >3mins.? @ -No Was critical care preformed (if so, how long)? @ -No Were there social determinants of health that impacted care today? How? (Homelessness, low income, unemployed, alcoholism, drug addiction, transportation, low edu. Level, literacy, decrease access to med. care, senior living, rehab)? @ -No Was there de-escalation of care discussed even if they declined (Discuss DNR or withdrawal of care, Hospice)? DNR status @ -No What co-morbidities impacted this encounter? (DM, HTN, Smoking, COPD, CAD, Cancer, CVA, ARF, Chemo, Hep., AIDS, mental health diagnosis, sleep apnea, morbid obesity)? @ -None Was patient admitted / discharged? Hospital course, mention meds given and route, prescriptions, significant lab abnormalities, going to OR and other pertinent info. @ -Discharge patient CT showed ventral wall hernia she is not currently incarcerated will follow-up with patient surgeon return parameters were discussed. Undiagnosed new problem with uncertain prognosis? @ -No Drug Therapy requiring intensive monitoring for toxicity (Heparin, Nitro, Insulin, Cardizem)? @ -No Were any procedures done? @ -No Diagnosis/symptom? @ -Abdominal pain, ventral wall hernia Acute, or Chronic, or Acute on Chronic? @ -Acute Uncomplicated (without systemic symptoms) or Complicated (systemic symptoms)? @ -Uncomplicated Side effects of treatment? @ -No Exacerbation, Progression, or Severe Exacerbation? @ -No Poses a threat to life or bodily function? How? (Chest pain, USA, MA, pneumonia, PE, COPD, DKA, ARF, appy, cholecystitis, CVA, Diverticulitis, Homicidal, Suicidal, threat to staff... and all critical care pts) @ -No - Lab Data Result diagrams: 05/05/23 12:15 05/05/23 12:15 Lab Results 05/05/23 05/05/23 05/05/23 Range/Units 12:15 12:15 12:15 WBC 5.4 (3.8-10.6) k/uL RBC 4.28 (3.80-5.40) m/uL Hgb 11.6 (11.4-16.0) gm/dL Hct 36.4 (34.0-46.0) % MCV 85.2 (80.0-100.0) fL MCH 27.1 (25.0-35.0) pg MCHC 31.8 (31.0-37.0) g/dL RDW 14.9 (11.5-15.5) % Plt Count 270 (150-450) k/uL MPV 7.8 Neutrophils % 74 % Lymphocytes % 15 % Monocytes % 7 % Eosinophils % 2 % Basophils % 0 % Neutrophils # 3.9 (1.3-7.7) k/uL Lymphocytes # 0.8 L (1.0-4.8) k/uL Monocytes # 0.4 (0-1.0) k/uL Eosinophils # 0.1 (0-0.7) k/uL Basophils # 0.0 (0-0.2) k/uL Sodium 142 (137-145) mmol/L Potassium 4.0 (3.5-5.1) mmol/L Chloride 109 H (98-107) mmol/L Carbon Dioxide 27 (22-30) mmol/L Anion Gap 6 mmol/L BUN 18 H (7-17) mg/dL Creatinine 0.92 (0.52-1.04) mg/dL Est GFR (CKD-EPI)AfAm 72 (>60 ml/min/1.73 sqM) Est GFR (CKD-EPI)NonAf 63 (>60 ml/min/1.73 sqM) Glucose 187 H (74-99) mg/dL Plasma Lactic Acid Casey 1.1 (0.7-2.0) mmol/L Calcium 9.4 (8.4-10.2) mg/dL Total Bilirubin 0.7 (0.2-1.3) mg/dL AST 38 H (14-36) U/L ALT 20 (4-34) U/L Alkaline Phosphatase 129 H (38-126) U/L Total Protein 6.6 (6.3-8.2) g/dL Albumin 3.9 (3.5-5.0) g/dL Lipase 142 (23-300) U/L Disposition Clinical Impression: Ventral hernia Disposition: HOME SELF-CARE Condition: Stable Instructions (If sedation given, give patient instructions): Ventral Hernia (ED) Additional Instructions: Please return to the Emergency Department if symptoms worsen or any other concerns. Is patient prescribed a controlled substance at d/c from ED?: No Referrals: Leah Bhagat MD [Primary Care Provider] - 1-2 days Time of Disposition: 15:51
[2023-05-05 12:29] LABS: Basophils % (A) 0 %; Eosinophils # (A) 0.1 k/uL (0-0.7); Eosinophils % (A) 2 %; HCT 36.4 % (34.0-46.0); HGB 11.6 gm/dL (11.4-16.0); Lymphocytes # (A) 0.8 k/uL (1.0-4.8); Lymphocytes % (A) 15 %; MCH 27.1 pg (25.0-35.0); MCHC 31.8 g/dL (31.0-37.0); MCV 85.2 fL (80.0-100.0); Mean Platelet Volume 7.8; Monocytes # (A) 0.4 k/uL (0-1.0); Monocytes % (A) 7 %; Neutrophils # (A) 3.9 k/uL (1.3-7.7); Neutrophils % (A) 74 %; Platelet Count 270 k/uL (150-450); RBC 4.28 m/uL (3.80-5.40); RDW 14.9 % (11.5-15.5); WBC 5.4 k/uL (3.8-10.6)
[2023-05-05] MEDS: SODIUM CHLORIDE 0.9% 1,000 ML IV STA (12:31)
[2023-05-05 12:41] LABS: ALT 20 U/L (4-34); AST 38 U/L (14-36); African American GFR (CKD) 72 (>60 ml/min/1.73 sqM); Albumin 3.9 g/dL (3.5-5.0); Alkaline Phosphatase 129 U/L (38-126); Anion Gap 6 mmol/L; Blood Urea Nitrogen 18 mg/dL (7-17); Calcium 9.4 mg/dL (8.4-10.2); Carbon Dioxide 27 mmol/L (22-30); Chloride 109 mmol/L (98-107); Glucose 187 mg/dL (74-99); Lipase 142 U/L (23-300); Non-African American GFR(CKD) 63 (>60 ml/min/1.73 sqM); Sodium 142 mmol/L (137-145); Total Bilirubin 0.7 mg/dL (0.2-1.3); Total Protein 6.6 g/dL (6.3-8.2)
--- NOTE | 2023-05-05 15:48 | CT ---
EXAMINATION TYPE: CT abdomen pelvis w con DATE OF EXAM: 05/05/2023 COMPARISON: 05/18/2015 HISTORY: abdominal pain, bariatric surgery, ulcers CT DLP: 1323.8 mGycm Automated exposure control for dose reduction was used. CONTRAST: CT scan of the abdomen pelvis is performed with IV Contrast, patient injected with 100 mL of Isovue 3 70. FINDINGS- LUNG BASES- coronary artery calcification. Lungs are clear. LIVER/GB- liver reduced attenuation correlate for hepatic steatosis. Small hypodensity within the r ight lobe the liver too small to characterize but most typical of a simple cyst. Post cholecystectomy . Mild central intrahepatic biliary dilation consistent with postcholecystectomy findings. PANCREAS- atrophic changes of the pancreas which is diminutive in size. No surrounding inflammatory changes. SPLEEN- No gross abnormality is seen. ADRENALS- No gross abnormality is seen. KIDNEYS/BLADDER-no hydronephrosis or nephrolithiasis. Right renal lesions are suggestive of simple cy sts. There is a punctate nonobstructing 2 mm left renal calculus. BOWEL- no diagnostic evidence of obstruction. There is postsurgical change involving the stomach com patible with the patient's reported history. Mild distal esophageal wall thickening can be associated with esophagitis. Diverticulosis. LYMPH NODES- No greater than 1cm abdominal or pelvic lymph nodes are appreciated. OSSEOUS STRUCTURES- hypertrophic and degenerative changes spine with multilevel facet arthropathy an d grade 1 anterolisthesis L4-L5. Bilateral hip arthropathy and SI joint arthropathy. OTHER- aorta of normal caliber. No free air or free fluid. Small anterior abdominal wall hernia cont aining peritoneal fat. IMPRESSION- 1. No evidence of obstruction. Postsurgical change involving the stomach consistent with the patient' s reported history. The stomach and esophagus are underdistended and limited in assessment. 2. Small fat-containing multiple ventral abdominal wall hernias.
[2023-05-05 16:02] VITALS: BP 158/98; PULSE 91; RESP 18; TEMP 98.2
== END 2023-05-05 16:01 | disposition home or self-care (01) ==
LOC: EC 11:26
DX: K43.9 Ventral hernia without obstruction or gangrene (principal); Z90.49 Acquired absence of other specified parts of digestive tract; Z87.11 Personal history of peptic ulcer disease; Z98.84 Bariatric surgery status
CPT/HCPCS: 36415; 80053; 83605; 83690; 85025; 74177; 99284; 96360; Q9967

== ENCOUNTER → 2023-05-18 | Outpatient (CLI) | payer MEDICARE ==
--- NOTE | 2023-05-18 13:52 | XR ---
EXAMINATION TYPE: XR chest 2V DATE OF EXAM: 05/18/2023 1:40 PM CLINICAL INDICATION:Female, 72 years old with history of PRE SURG XRAY; COMPARISON: Chest radiographs from 09/28/2022 TECHNIQUE: XR chest 2V Frontal and lateral views of the chest. FINDINGS: Lungs/Pleura: There is no evidence of pleural effusion, focal consolidation, or pneumothorax. Pulmonary vascularity: Unremarkable. Heart/mediastinum: Cardiomediastinal silhouette is unremarkable. Musculoskeletal: No acute osseous pathology. IMPRESSION: No acute cardiopulmonary disease/process.
[2023-05-18 18:16] LABS: Basophils # (A) 0.03 X 10*3/uL (0.00-0.10); Basophils % (A) 0.5 %; Eosinophils # (A) 0.04 X 10*3/uL (0.04-0.35); Eosinophils % (A) 0.6 %; HCT 36.1 % (37.2-46.3); HGB 11.3 g/dL (12.0-15.0); Lymphocytes # (A) 0.81 X 10*3/uL (0.90-5.00); Lymphocytes % (A) 12.2 %; MCH 26.7 pg (27.0-32.0); MCHC 31.3 g/dL (32.0-37.0); MCV 85.1 FL (80.0-97.0); Mean Platelet Volume 10.9 FL (9.5-12.2); Monocytes # (A) 0.39 X 10*3/uL (0.20-1.00); Monocytes % (A) 5.9 %; NRBC Per 100 WBC 0 X 10*3/uL (0.00-0.01); Neutrophils # (A) 5.36 X 10*3/uL (1.80-7.70); Neutrophils % (A) 80.3 %; Platelet Count 360 X 10*3/uL (140-440); RBC 4.24 X 10*6/uL (4.10-5.20); RDW 14.6 % (11.5-14.5); WBC 6.66 X 10*3/uL (4.50-10.00)
[2023-05-18 19:42] LABS: NT-Pro-B-Type Natriuretic Pept 197 pg/mL (0-125)
[2023-05-18 19:54] LABS: INR 1.01 sec (0.93-1.11); Prothrombin Time 10.9 sec (9.9-11.9)
[2023-05-18 19:57] LABS: ALT 11 U/L (8-44); AST 19 U/L (13-35); Albumin 4.1 g/dL (3.8-4.9); Albumin/Globulin Ratio 1.64 Ratio (1.60-3.17); Alkaline Phosphatase 140 U/L (41-126); Blood Urea Nitrogen 20.5 mg/dL (9.0-27.0); Calcium 9.5 mg/dL (8.7-10.3); Carbon Dioxide 23.9 mmol/L (21.6-31.8); Chloride 106 mmol/L (96-109); Globulin 2.5 g/dL (1.6-3.3); Glucose 153 mg/dL (70-110); Potassium 4.2 mmol/L (3.5-5.5); Sodium 142 mmol/L (135-145); Total Bilirubin 0.4 mg/dL (0.3-1.2); Total Protein 6.6 g/dL (6.2-8.2)
== END | disposition home or self-care (01) ==
LOC: LABWHC1 13:11
PROVIDERS: ATTEND Family Medicine
DX: Z01.812 Encounter for preprocedural laboratory examination (principal); C50.611 Malignant neoplasm of axillary tail of right female breast; E11.65 Type 2 diabetes mellitus with hyperglycemia; I10 Essential (primary) hypertension; Z98.84 Bariatric surgery status
CPT/HCPCS: 36415; 71046; 80053; 83036; 83880; 84443; 85025; 85610

== ENCOUNTER 2023-05-22 08:41 | Day surgery (SDC) | payer MEDICARE ==
[2023-05-21 10:59] VITALS: BMI 29.5
[2023-05-22] MEDS: LACTATED RINGERS 1,000 ML IV ONE (09:17)
[2023-05-22] MEDS: LIDOCAINE 1% (10MG/ML) FOR IV START INTRADERMA ONE (09:17)
[2023-05-22 09:20] VITALS: RESP 18; TEMP 97.4
[2023-05-22 09:23] LABS: Glucose,Whole Blood 76 mg/dL (70-110)
[2023-05-22] MEDS ORDERED: PROPOFOL 10 MG/ML 20 ML VIAL IV ONE (09:32)
--- NOTE | 2023-05-22 09:43 | P.PCN ---
Date of Procedure: 05/22/23 Procedure(s) Performed: BRIEF HISTORY: Patient is a []-year-old, pleasant, white femalescheduled for an upper endoscopy as a part of follow up of gastric anastomotic ulcer that was diagnosed in February 2023. She presented with iron deficiency anemia an upper endoscopy revealed 3 anastomotic ulcers measuring with 18 5 mm to 2 cm in size. Since then he has been maintained on Protonix 40 mg twice daily and scheduled for an upper endoscopy to evaluate further. she has history of gastric bypass surgery with Susana-en-Y anastomosis several years ago PROCEDURE PERFORMED: Esophagogastroduodenoscopy with biopsy. PREOPERATIVE DIAGNOSIS: follow-up gastric anastomotic ulcers diagnosed in February 2023. IV sedation per anesthesia. PROCEDURE: After informed consent was obtained, the patient was brought into the endoscopy unit. IV sedation was administered by Anesthesia under continuous monitoring. Initially the Olympus GIF-140 video endoscope was inserted into the mouth. Esophagus intubated without any difficulty. It was gradually advanced into the stomach the gastric pouch had mild gastritis. At the Susana-en-Y anastomosis there were 2 ulcerations measuring 1 cm and 2 cm in size with no significant change in size from the prior upper endoscopy in February of this year. Biopsies were done from the ulcers. The scope was advanced into the afferent and efferent loops which appeared normal. The scope at this time was withdrawn to the gastric pouch and there was mild gastritis noted. The scope was then withdrawn into the esophagus. The GE junction was located at 39 cm from the incisors. The esophagus appeared normal. There were no erosions or ulcerations seen and the patient tolerated the procedure well. IMPRESSION: 1. 2 ulcers at the Susana-en-Y anastomosis measuring 1 cm and 2 cm in size status post biopsy 2.mild gastritis of the gastric pouch. RECOMMENDATIONS: The findings of this examination were discussed with the patient as well as her family. She was advised to continue with Protonix 40 mg twice daily and follow antireflux measures. Will plan a repeat upper endoscopy in 6 months..
[2023-05-22 10:03] VITALS: BP 173/94; PULSE 52
== END 2023-05-22 10:27 | disposition home or self-care (01) ==
LOC: ORWHC2ENDO 08:41
PROVIDERS: ATTEND Internal Medicine Gastroenterology
DX: K25.3 Acute gastric ulcer without hemorrhage or perforation (principal); D50.9 Iron deficiency anemia, unspecified; I10 Essential (primary) hypertension; G47.33 Obstructive sleep apnea (adult) (pediatric); F32.A Depression, unspecified; E11.9 Type 2 diabetes mellitus without complications; F41.9 Anxiety disorder, unspecified; M19.90 Unspecified osteoarthritis, unspecified site; Z85.3 Personal history of malignant neoplasm of breast; Z79.84 Long term (current) use of oral hypoglycemic drugs; Z79.899 Other long term (current) drug therapy; Z98.84 Bariatric surgery status; Z98.890 Other specified postprocedural states
CPT/HCPCS: 88305; 43239; J2704

== ENCOUNTER 2023-07-29 03:49 | Emergency (ER) | payer MEDICARE ==
[2023-07-29 04:28] LABS: Basophils % (A) 0 %; Eosinophils # (A) 0.1 k/uL (0-0.7); Eosinophils % (A) 1 %; HCT 26.9 % (34.0-46.0); HGB 8.6 gm/dL (11.4-16.0); Hypochromasia Moderate; Lymphocytes % (A) 11 %; MCH 26.9 pg (25.0-35.0); MCHC 32.2 g/dL (31.0-37.0); MCV 83.6 fL (80.0-100.0); Mean Platelet Volume 8.2; Monocytes # (A) 0.5 k/uL (0-1.0); Monocytes % (A) 5 %; Neutrophils % (A) 81 %; Platelet Count 365 k/uL (150-450); RBC 3.21 m/uL (3.80-5.40); WBC 8.7 k/uL (3.8-10.6)
--- NOTE | 2023-07-29 04:30 | ED ---
General Adult HPI - General Chief complaint: GI Bleed Stated complaint: blood in vomit NVD Time Seen by Provider: 07/29/23 03:57 Source: patient Mode of arrival: ambulatory Limitations: no limitations - History of Present Illness Initial comments: Dictation was produced using [employer] dictation software. please excuse any grammatical, word or spelling errors. Chief Complaint: 72-year-old female presents with hematemesis History of Present Illness: Patient 72-year-old female has past medical history of bariatric surgery. Patient has been having nausea significantly for the last several years. States that it really progressed over the last 4 days. This morning she woke up out of bed and went to the bathroom to vomit. She states that her emesis was bright red. She recently had EGD and was told she has a gastric ulcer. The ROS documented in this emergency department record has been reviewed and confirmed by me. Those systems with pertinent positive or negative responses have been documented in the HPI. All other systems are other negative and/or noncontributory. - Related Data Home Medications Medication Instructions Recorded Confirmed Metoprolol Succinate [Toprol XL] 50 mg PO DAILY 11/02/13 05/22/23 Multivitamins, Thera [Multivitamin 1 tab PO DAILY 08/17/14 05/22/23 (formulary)] Vitamin A (10,000 Xf=2838 Mcg) 10,000 mcg PO DAILY 04/04/16 05/22/23 busPIRone HCL 10 mg PO BID 02/28/21 05/22/23 ALPRAZolam [Xanax] 0.25 mg PO BID PRN 05/10/21 05/22/23 Cholecalciferol [Vitamin D3 (125 250 mcg PO DAILY 05/10/21 05/22/23 Mcg = 5000 Iu)] Magnesium 250 mg PO DAILY 05/10/21 05/22/23 Pioglitazone [Actos] 45 mg PO DAILY 05/10/21 05/22/23 Venlafaxine HCl [Effexor XR] 150 mg PO DAILY 05/10/21 05/22/23 Vit C/E/Zn/Coppr/Lutein/Zeaxan 2 cap PO DAILY 05/10/21 05/22/23 [Preservision Areds 2 Softgel] Zinc Gluconate [Zinc] 50 mg PO DAILY 05/10/21 05/22/23 Calcium Carbonate [Calcium] 600 mg PO DAILY 08/02/21 05/22/23 Letrozole 2.5 mg PO DAILY 08/13/21 05/22/23 Ferrous Sulfate [Feosol] 325 mg PO DAILY 05/05/23 05/22/23 Gabapentin 300 mg PO BID PRN 05/05/23 05/22/23 Insulin Glargine,Hum.rec.anlog 45 unit SQ QAM 05/05/23 05/22/23 [Basaglar Kwikpen U-100] Mirabegron [Myrbetriq] 50 mg PO DAILY 05/05/23 05/22/23 QUEtiapine [SEROquel] 25 mg PO HS 05/05/23 05/22/23 Semaglutide [Ozempic] 2 mg SQ MO 05/05/23 05/22/23 Vitamin B-12(Unknown Dose) 1 tab PO MO 05/05/23 05/22/23 DULoxetine HCL [Cymbalta] 30 mg PO DAILY 05/21/23 05/22/23 Mupirocin 2% Oint [Bactroban 2% 1 applic NASAL DIRECTED 05/21/23 05/22/23 Oint] Ondansetron [Zofran] 4 mg PO Q8HR PRN 05/21/23 05/22/23 Pantoprazole [Protonix] 40 mg PO DAILY 05/21/23 05/22/23 hydroCHLOROthiazide [Hydrodiuril] 50 mg PO DAILY 05/21/23 05/22/23 Previous Rx's Medication Instructions Recorded Simvastatin [Zocor] 20 mg PO HS #90 tab 05/16/15 Allergies Allergy/AdvReac Type Severity Reaction Status Date / Time No Known Allergies Allergy Verified 05/22/23 09:01 Review of Systems ROS Statement: Those systems with pertinent positive or pertinent negative responses have been documented in the HPI. ROS Other: All systems not noted in ROS Statement are negative. Past Medical History Past Medical History: Cancer, Diabetes Mellitus, Hypertension, Osteoarthritis (OA), Sleep Apnea/CPAP/BIPAP Additional Past Medical History / Comment(s): sleep apnea resolved with wt loss., right breast cancer with radiation tx (2021)., arthritis right knee- waiting for surgery., gastric ulcers., hx of Susana-en-y- states ruptured at anastamosis 1 year later and had bowel resection., hernia. History of Any Multi-Drug Resistant Organisms: None Reported Past Surgical History: Bariatric Surgery, Bowel Resection, Breast Surgery, C esarean Section, Cholecystectomy, Joint Replacement, Orthopedic Surgery Additional Past Surgical History / Comment(s): Left knee replacement, EGD, cataracts.,, BREAST BX x3 on right side, SUSANA-EN-Y, bowel resection 04/12/15, feeding tube replaced 04/13/15, G TUBE REMOVED, bladder sling. Breast reduction/lumpectomy right breast June 2021 Past Anesthesia/Blood Transfusion Reactions: No Reported Reaction Past Psychological History: Anxiety, Depression Smoking Status: Never smoker Past Alcohol Use History: Rare Past Drug Use History: None Reported - Past Family History Mother Family Medical History: Cancer Additional Family Medical History / Comment(s): uterine Father Family Medical History: Cancer Additional Family Medical History / Comment(s): PANCREATIC General Exam - General Exam Comments Initial Comments: PHYSICAL EXAM: General Impression: Alert and oriented x3, not in acute distress HEENT: Normocephalic atraumatic, extra-ocular movements intact, pupils equal and reactive to light bilaterally, mucous membranes moist. Cardiovascular: Heart regular rate and rhythm Chest: Able to complete full sentences, no retractions, no tachypnea Abdomen: abdomen soft, non-tender, non-distended, no organomegaly Musculoskeletal: Pulses present and equal in all extremities, no peripheral edema Motor: no focal deficits noted Neurological: CN II-XII grossly intact, no focal motor or sensory deficits noted Skin: Intact with no visualized rashes Psych: Normal affect and mood Limitations: no limitations Course Vital Signs 07/29/23 07/29/23 03:52 06:00 Temperature 97.9 F Pulse Rate 111 H 88 Respiratory 18 16 Rate Blood Pressure 115/67 141/78 O2 Sat by Pulse 99 96 Oximetry Medical Decision Making - Medical Decision Making Was pt. sent in by a medical professional or institution (, PA, CABLE TV INSTALLER, urgent care, hospital, or halfway...) When possible be specific @ -No Did you speak to anyone other than the patient for history (EMS, parent, family, police, friend...)? What history was obtained from this source @ -No Did you review nursing and triage notes (agree or disagree)? Why? @ -I reviewed and agree with nursing and triage notes Were old charts reviewed (outside hosp., previous admission, EMS record, old EKG, old radiological studies, urgent care reports/EKG's, halfway records)? Report findings @ -No old charts were reviewed Differential Diagnosis (chest pain, altered mental status, abdominal pain women, abdominal pain men, vaginal bleeding, musculoskeletal, weakness, fever, dyspnea, syncope, headache, dizziness, GI bleed, back pain, seizure, CVA, palpatations, mental health)? @ -Differential GI Bleed: Esophageal varices, aortoenteric fistula, Zoë-Tolbert, gastritis, peptic ulcer disease, diverticulosis, inflammatory bowel disease, hemorrhoids, fissure, colitis, malignancy, Meckels diverticulum, this is not meant to be an all- inclusive list. EKG interpreted by me (3pts min.). @ -None done X-rays interpreted by me (1pt min.). @ -Abdominal x-ray is nonacute CT interpreted by me (1pt min.). @ -None done U/S interpreted by me (1pt. min.). @ -None done What testing was considered but not performed or refused? (CT, X-rays, U/S, labs)? Why? @ -None What meds were considered but not given or refused? Why? @ -None Did you discuss the management of the patient with other professionals (professionals i.e. , PA, CABLE TV INSTALLER, lab, RT, psych nurse, social media content manager, net developer contract, teacher, targeting acquisition officer, cyanide case hardener)? Give summary @ -Case discussed with on-call general surgeon who will request patient be transferred to higher level of care given we do not have GI specialist on-call Was smoking cessation discussed for >3mins.? @ -No Was critical care preformed (if so, how long)? @ -No Were there social determinants of health that impacted care today? How? (Homelessness, low income, unemployed, alcoholism, drug addiction, transportation, low edu. Level, literacy, decrease access to med. care, residential, rehab)? @ -No Was there de-escalation of care discussed even if they declined (Discuss DNR or withdrawal of care, Hospice)? DNR status @ -No What co-morbidities impacted this encounter? (DM, HTN, Smoking, COPD, CAD, Cancer, CVA, ARF, Chemo, Hep., AIDS, mental health diagnosis, sleep apnea, morbid obesity)? @ -None Was patient admitted / discharged? Hospital course, mention meds given and route, prescriptions, significant lab abnormalities, going to OR and other pertinent info. @ -72-year-old female with hematemesis. Vital signs upon arrival are are within acceptable limits. Laboratory evaluation obtained hemoglobin 8.6 which is slightly lower than patient's baseline. Coag panel is negative. Metabolic panel shows findings within acceptable limits. X-ray is nonacute. Patient reevaluated bedside having continued hematemesis episodes. Patient given Protonix she does not have a history of esophageal varices. Patient of IV fluids and Zofran. Discussed with general surgeon or recommends patient be transferred to outside facility that has GI specialist on-call. Suspect that patient has a marginal ulcer. Patient be transferred to [facility]. Accepting physician is Dr. Gallegos for ER to ER transfer Undiagnosed new problem with uncertain prognosis? @ -No Drug Therapy requiring intensive monitoring for toxicity (Heparin, Nitro, Insulin, Cardizem)? @ -No Were any procedures done? @ -No Diagnosis/symptom? Acute, or Chronic, or Acute on Chronic? Uncomplicated (without systemic symptoms) or Complicated (systemic symptoms)? @ -Hematemesis Side effects of treatment? @ -No Exacerbation, Progression, or Severe Exacerbation? @ -No Poses a threat to life or bodily function? How? (Chest pain, [place], [place], pneumonia, PE, COPD, DKA, ARF, appy, cholecystitis, CVA, Diverticulitis, Homicidal, Suicidal, threat to staff... and all critical care pts) @ -yes - Lab Data Result diagrams: 07/29/23 04:12 07/29/23 04:12 Lab Results 07/29/23 07/29/23 07/29/23 Range/Units 04:12 04:12 04:12 WBC 8.7 (3.8-10.6) k/uL RBC 3.21 L (3.80-5.40) m/uL Hgb 8.6 L (11.4-16.0) gm/dL Hct 26.9 L (34.0-46.0) % MCV 83.6 (80.0-100.0) fL MCH 26.9 (25.0-35.0) pg MCHC 32.2 (31.0-37.0) g/dL RDW 14.0 (11.5-15.5) % Plt Count 365 (150-450) k/uL MPV 8.2 Neutrophils % 81 % Lymphocytes % 11 % Monocytes % 5 % Eosinophils % 1 % Basophils % 0 % Neutrophils # 7.0 (1.3-7.7) k/uL Lymphocytes # 1.0 (1.0-4.8) k/uL Monocytes # 0.5 (0-1.0) k/uL Eosinophils # 0.1 (0-0.7) k/uL Basophils # 0.0 (0-0.2) k/uL Hypochromasia Moderate PT 10.8 (10.0-12.5) sec INR 1.0 (<1.2) APTT 22.9 (22.0-30.0) sec Sodium 136 L (137-145) mmol/L Potassium 4.7 (3.5-5.1) mmol/L Chloride 107 (98-107) mmol/L Carbon Dioxide 24 (22-30) mmol/L Anion Gap 5 mmol/L BUN 24 H (7-17) mg/dL Creatinine 0.77 (0.52-1.04) mg/dL Est GFR (CKD-EPI)AfAm 89 (>60 ml/min/1.73 sqM) Est GFR (CKD-EPI)NonAf 77 (>60 ml/min/1.73 sqM) Glucose 417 H (74-99) mg/dL Calcium 8.8 (8.4-10.2) mg/dL Total Bilirubin 0.6 (0.2-1.3) mg/dL AST 16 (14-36) U/L ALT 10 (4-34) U/L Alkaline Phosphatase 139 H (38-126) U/L Total Protein 5.5 L (6.3-8.2) g/dL Albumin 3.1 L (3.5-5.0) g/dL Disposition Clinical Impression: Hematemesis Disposition: OTHER INSTITUTION NOT DEFINED Condition: Serious Referrals: Leah Bhagat MD [Primary Care Provider] - 1-2 days Time of Disposition: 06:36 - Out of Hospital Transfer - Req. Specs Out of Hospital Transfer - Requested Specifics: Other Emergency Center ([facility])
[2023-07-29] MEDS: PANTOPRAZOLE 40 MG/10 ML VIAL IVP STA (04:32)
[2023-07-29] MEDS: SODIUM CHLORIDE 0.9% 1,000 ML IV STA (04:32)
[2023-07-29] MEDS: ONDANSETRON 4 MG/2 ML VIAL IVP STA ×2 (04:32→07:36)
[2023-07-29 04:42] LABS: ALT 10 U/L (4-34); AST 16 U/L (14-36); African American GFR (CKD) 89 (>60 ml/min/1.73 sqM); Albumin 3.1 g/dL (3.5-5.0); Alkaline Phosphatase 139 U/L (38-126); Anion Gap 5 mmol/L; Blood Urea Nitrogen 24 mg/dL (7-17); Calcium 8.8 mg/dL (8.4-10.2); Carbon Dioxide 24 mmol/L (22-30); Chloride 107 mmol/L (98-107); Glucose 417 mg/dL (74-99); Non-African American GFR(CKD) 77 (>60 ml/min/1.73 sqM); Potassium 4.7 mmol/L (3.5-5.1); Sodium 136 mmol/L (137-145); Total Bilirubin 0.6 mg/dL (0.2-1.3); Total Protein 5.5 g/dL (6.3-8.2)
[2023-07-29 04:58] LABS: Partial Thromboplastin Time 22.9 sec (22.0-30.0); Prothrombin Time 10.8 sec (10.0-12.5)
--- NOTE | 2023-07-29 05:48 | XR ---
EXAMINATION TYPE: XR abdomen 1V DATE OF EXAM: 07/29/2023 4:51 AM CLINICAL HISTORY: Hematemesis TECHNIQUE: Two portable frontal KUB images of the abdomen are obtained. COMPARISON: CT abdomen and pelvis May 05, 2023. FINDINGS: Surgical sutures and clips left upper quadrant. Cholecystectomy clips are seen. Scattered g as is seen in non-distended small and large bowel loops. S-shaped scoliosis is redemonstrated. Lung b ases are clear. IMPRESSION: Overall nonobstructive bowel gas pattern.
[2023-07-29 06:42] VITALS: RESP 16
[2023-07-29 07:30] VITALS: BP 158/81; PULSE 76; TEMP 98.9
== END 2023-07-29 07:42 | disposition other institution (70) ==
LOC: EC 03:49
DX: K92.0 Hematemesis (principal)
CPT/HCPCS: 36415; 86900; 86901; 80053; 85025; 85610; 85730; 86850; 74018; 99285; 96374; 96375; 96376; 96361 ×3; J2405; C9113

== ENCOUNTER → 2023-09-02 | Outpatient (CLI) | payer MEDICARE ==
--- NOTE | 2023-09-03 23:45 | BD ---
EXAMINATION TYPE: Axial Bone Density DATE OF EXAM: 09/02/2023 CLINICAL HISTORY: 72 years old Female. 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 Bone mineral density as measured about the Lumbar spine is: ----- L1-L4(G/cm2): 1.339 T Score Values are as follows: ----- L1: -0.7 ----- L2: 0.1 ----- L3: 2.2 ----- L4: 3.0 ----- L1-L4: 1.3 Z Score Values are as follows: ----- L1: 0.3 ----- L2: 1.0 ----- L3: 3.2 ----- L4: 4.0 ----- L1-L4: 2.3 Bone mineral density has: Decreased -7.3% since study of: 08/30/2021 Bone mineral density about the R hip (g/cm2): 0.888 Bone mineral density about the L hip (g/cm2): 0.932 T Score values are as follows: -----R Neck: -0.6 -----L Neck: 0.0 -----R Total: -1.0 -----L Total: -0.6 Z Score values are as follows: -----R Neck: 0.7 -----L Neck: 1.3 -----R Total: 0.1 -----L Total: 0.5 Bone mineral density has: Decreased -8.5% since study of: 08/30/2021 FRAX%s: The graph provided illustrates a 8.1% chance for a major osteoporotic fx and a 0.8% chance fo r the hips probability for fx in 10 years time. IMPRESSION: Normal (Values between +1 and -1 indicate normal bone mass). Consider repeating this study in 5 year s or sooner if there is some new clinical indication. NOTE: T-SCORE=SD OF THE YOUNG ADULT MEAN.
== END | disposition home or self-care (01) ==
LOC: RADBDWWP 11:17
PROVIDERS: ATTEND Internal Medicine Hematology & Oncology
DX: C50.811 Malignant neoplasm of overlapping sites of right female breast (principal); E11.9 Type 2 diabetes mellitus without complications; I10 Essential (primary) hypertension; E78.5 Hyperlipidemia, unspecified
CPT/HCPCS: 77080

== ENCOUNTER 2023-10-09 11:07 | Emergency (ER) | payer MEDICARE ==
[2023-10-09] MEDS ORDERED: METOCLOPRAMIDE 5 MG/ML 2 ML VIAL ONE (12:30)
[2023-10-09] MEDS ORDERED: PANTOPRAZOLE 40 MG/10 ML VIAL ONE (12:31)
[2023-10-09] MEDS ORDERED: INSULIN REGULAR 100 UNIT/ML VIAL (IV) ONE (14:03)
--- NOTE | 2023-11-02 08:02 | CT ---
Patient: Eboni Otoole Ordering Physician: Unknown, Unknown ID: [id number] Phone, Pager: Phone: N /A Pager: N/A : [phone] Age/Gender: 72Y, F Primary Location: N/A Procedure: CT abdomen pelvis w con Study Date: 10/09/2023 1:49:00 PM EXAMINATION TYPE: CT abdomen pelvis w con DATE OF EXAM: 10/09/2023 COMPARISON: 05/05/2023 INDICATION: Generalized abdominal pain DLP: 939 mGycm, Automated exposure control for dose reduction was used. CONTRAST: 100 mL of Isovue 300. Study performed without Oral Contrast TECHNIQUE: Axial images were obtained from above the diaphragm to the pubic rami in the axial plane a t 5 mm thick sections. Reconstructed images are reviewed on the computer in the coronal plane. FINDINGS: Limited CT sections are obtained the lung bases. The lung bases are clear. CT ABDOMEN: Small anterior abdominal wall hernia containing mesenteric fat is present with an openin g of 1.3 cm. Series 201 image 28. Liver: Normal Spleen: Normal Pancreas: Normal Adrenal glands: The adrenal glands are normal. Gallbladder: Surgically absent Kidneys: No masses are evident. No hydronephrosis is present. There nonobstructing punctate renal s tones on the posterior lateral right mid kidney measuring 0.2 cm is a 4.2 cm cyst superior medial rig ht kidney. Delayed images were obtained through the kidneys, which remain unremarkable. Aorta: Vascular calcification is within the aorta. Inferior vena cava: Normal. CT PELVIS: Loops of bowel within the abdomen and pelvis are normal. Some scattered diverticuli within the sigmo id colon. The study is without oral contrast limiting bowel evaluation. Appendix: Not identified. No inflammatory change or dilated tubular structure evident. Urinary bladder: Normal. Genitourinary structures: Uterus is normal. Adnexa are unremarkable. Osseous structures: No suspicious lytic or sclerotic lesions. Facet changes are within the lower lumb ar spine IMPRESSION: 1. Punctate nonobstructing mid posterior lateral left renal stone. 2. Diverticulosis without acute diverticulitis. 3. Renal cortical cysts.
== END 2023-10-09 16:36 | disposition home or self-care (01) ==
LOC: EC 11:07
DX: R10.13 Epigastric pain (principal)
CPT/HCPCS: 74177; 93005; 96374; 96375; 99284

== ENCOUNTER → 2023-11-06 | Outpatient (CLI) | payer MEDICARE ==
--- NOTE | 2023-11-06 11:02 | P.PN ---
Subjective Progress Note Date: 11/06/23 Principal diagnosis: right breast encapsulated papillary carcinoma /DCIS 202104/30/23 Principal diagnosis: encapsulated papillary carcinoma/ right breast Eboni is a 73 year old female. She had bilateral reduction mammoplasty with removal of the intraductal papilloma on 07-02-21. 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 No sentinel nodes were obtained. 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 The lateral margin was positive. It was ER/CT positive and HER-2 negative. She had an Oncotype score of 3. She subsequently underwent radiation therapy completing this on [id number]. She is presently on anastrozole She had postoperative chronic draining sinus of the right breast which has since healed. The patient has no new lumps masses or nodules of concern in either breast. She had a bilateral mammogram and which was BIRADS 2 She is going to have a bilateral mammogram in April 2024 She took NSAID for knee pain and developed a bleeding gastric ulcer in July 2023 This developed after she had severe nausea. Patient presently on carafate and protonix, reglan and promethazine that is controling the nausea. Emergency department in [place] saw her and transferred to [facility] She had had bariatric surgery in the past and is believed that the ulcer is related to the bariatric surgery anastomosis. She has been seen at [facility] and she is going to see a bariatric surgeon at that department. That is going to be in November,. Note medical oncology 09-09-23 reviewed; continue letrazole; genetic testing ordered will obtain report of CT from [facility] and EGD report Caffeine: tea 3 cups/day nicotine: none chocolate: rare BCP: less than 1 year in remote past hormones: none Family history: mother: uterine cancer father: pancreatic cancer Hormonal History: menarche: 15 , breast fed: yes, age at first : 28 menopause: 55 hormones: none Surgical History: bilateral cataracts bladder sling left knee replacement gastric bypass ruptured bypass repaired left knee replacement bilateral reduction mammoplasty right knee replacement Medical History: HTN DM bleeding ulcer left knee pain Social History: nicotine: none alcohol: none drugs: none - Constitutional Constitutional: Denies chills, Denies fever - EENT Comment: retinal hole left eye Eyes: bilateral as per HPI, denies blurred vision, denies pain Ears: deny: decreased hearing, tinnitus Ears, nose, mouth and throat: Denies headache, Denies sore throat - Breasts Breasts: bilateral: as per HPI - Cardiovascular Cardiovascular: Denies chest pain, Denies shortness of breath - Respiratory Respiratory: Denies cough - Gastrointestinal Gastrointestinal: Reports as per HPI, Denies abdominal pain, Denies diarrhea, Denies nausea, Denies vomiting - Genitourinary (Female) Genitourinary: Denies dysuria, Denies hematuria - Menstruation Menstruation: Reports postmenopausal - Musculoskeletal Comment: arthritis - Integumentary Integumentary: Denies pruritus, Denies rash - Neurological Neurological: Denies numbness, Denies weakness - Psychiatric Psychiatric: Reports depression - Endocrine Endocrine: Denies fatigue, Denies weight change - Hematologic/Lymphatic Comment: none - Allergic/Immunologic Allergic/Immunologic: Reports as per HPI Objective - Constitutional General appearance: Present: cooperative - EENT Eyes: Present: EOMI ENT: Present: hearing grossly normal - Neck Neck: Present: normal ROM - Respiratory Respiratory: bilateral: CTA - Cardiovascular Rhythm: regular Heart sounds: normal: S1, S2 - Integumentary Integumentary: Present: normal turgor - Musculoskeletal Musculoskeletal: Present: gait normal - Psychiatric Psychiatric: Present: A&O x's 3, appropriate affect, intact judgment & insight - Additional findings Additional findings: Breast Exam: BRA: 38C inspection: Asymmetry of the breasts secondary to bilateral reduction surgery, right breast slightly smaller than left breast with some inversion of the nipple. Palpation: Right breast: Multi-positional exam fibrocystic changes firm mass behind right nipple, postsurgical and radiation changes, some inversion of the superior aspect of the nipple areolar complex Right axilla: No adenopathy of concern Left breast: Postsurgical changes fibrocystic changes no dominant masses or nodules of concern Left axilla: No adenopathy of concern Assessment and Plan Assessment: Impression: mass right breast behind nipple complex Patient due for bilateral mammogram in April 2024 Breast is completely healed at this time Diabetes HTN right knee pain bilateral mammogram 04-29-24 BIRAD 2 Plan: uotrasound right breast behind nipple follow up after this is done core biopsy of mass behind nipple right side Bilateral mammogram in April 2024 Continue to follow with medical oncology/continue anestrazole Continue follow with radiation oncology Follow-up here in 6 months obtain reports from [facility] follow with bariatic surgeon CC: Dr. Bhagat
[2023-11-06 11:38] VITALS: BP 131/99; PULSE 72; RESP 17; TEMP 98.7
== END ==
LOC: WWCWWP 10:18
PROVIDERS: ATTEND Surgery
DX: R92.8 Other abnormal and inconclusive findings on diagnostic imaging of breast (principal); D05.11 Intraductal carcinoma in situ of right breast; R11.0 Nausea; E11.36 Type 2 diabetes mellitus with diabetic cataract; I10 Essential (primary) hypertension; M25.561 Pain in right knee; Z92.3 Personal history of irradiation; Z98.890 Other specified postprocedural states; Z79.4 Long term (current) use of insulin; Z79.85 Long-term (current) use of injectable non-insulin antidiabetic drugs; Z79.899 Other long term (current) drug therapy

== ENCOUNTER → 2023-11-23 | Outpatient (CLI) | payer MEDICARE ==
--- NOTE | 2023-11-23 10:17 | USB ---
Reason for Exam: Clinical finding. Patient History: Menarche at age 15. First Full-Term at age 28. Postmenopausal. Patient has history of breast feeding. Breast cancer, right, age 70. Previous chest radiation therapy at age 70. 2022, Bilateral Reduction. 07/02/2021, Malignant MG pre op needle loc RT on the right side. Core Biopsy on the Right side. Core Biopsy on the Right side. 03/05/2021, High risk Core Biopsy on the right side. Technique: Method: Targeted. Prior Study Comparison: 03/05/2021 Right Diagnostic Mammogram, [facility]. 04/18/2022 Bilateral MG 3D diag mammo w/cad JOANA, [facility]. 04/21/2023 Bilateral MG 3D diag mammo w/cad JOANA, [facility]. Findings: The area of palpable concern of the right breast, the axilla of the right breast and the retroareolar of the right breast were scanned. Hypoechoic area seen at the site of clinical concern right nipple region. This could reflect scar tissue however mass is not excluded and tissue diagnosis is recommended.. Overall Assessment: Suspicious, BI-RAD 4 Management: Ultrasound Core Biopsy of the right breast. A clinical breast exam by your physician is recommended on an annual basis and results should be correlated with mammographic findings. This exam should not preclude additional follow-up of suspicious palpable abnormalities. Results were given to the patient verbally at the time of exam. [facility], , 11/23/2023 10:10 AM. Electronically signed and approved by: Bruce Robledo M.D. Radiologis
== END | disposition home or self-care (01) ==
LOC: RADUSWWP 09:34
PROVIDERS: ATTEND Surgery

== ENCOUNTER → 2023-12-07 | Day surgery (SDC) | payer MEDICARE ==
--- NOTE | 2023-12-14 11:34 | MM ---
Reason for Exam: Post Procedure Mammogram. Last screening mammogram was performed 7 month(s) ago. Patient History: Menarche at age 15. First Full-Term at age 28. Postmenopausal. Patient has history of breast feeding. Breast cancer, right, age 70. Previous chest radiation therapy at age 70. 2022, Bilateral Reduction. 07/02/2021, Malignant MG pre op needle loc RT on the right side. Core Biopsy on the Right side. Core Biopsy on the Right side. 03/05/2021, High risk Core Biopsy on the right side. Prior Study Comparison: 09/27/2015 Bilateral Screening Mammogram, [facility]. 11/17/2017 Bilateral Screening Mammogram, [facility]. 02/12/2021 Bilateral Screening Mammogram, [facility]. 03/05/2021 Right Diagnostic Mammogram, [facility]. 04/18/2022 Bilateral MG 3D diag mammo w/cad JOANA, [facility]. 04/21/2023 Bilateral MG 3D diag mammo w/cad JOANA, [facility]. 11/23/2023 Right US breast limited RT, [facility]. Tissue Density: Right: The breasts are heterogeneously dense, which may obscure small masses. Pathology Description: Location: 9 o'clock. Marker Left Behind. Needle Type: Mammotome Cores: 3 Pathology Description: Location: 4 o'clock. Marker Left Behind. Needle Type: Mammotome Cores: 3 Gauge: 12 The procedure of ultrasound guided core biopsy was explained to the patient. Benefits, alternatives, and risks were discussed. An informed consent was then obtained. The patient's large heterogeneous area in the anterior subareolar right breast is identified. Likely scar tissue per results from outside biopsies as reported by the patient. This region was scanned and 2 areas which show a more focal nodular configuration measuring up to 8 mm are identified and targeted for biopsy. These are located at the 4:00 position 1 cm from the nipple and 9:00 position, 1 cm from the nipple. The patient was placed in supine positioning for imaging and for the procedure. The overlying skin was prepped and draped in usual sterile fashion. Lidocaine was used as anesthetic into the skin and subcutaneous tissue up to area of concern in the right breast at each site in turn. A. 4:00 nodular area: Under ultrasound guidance, a 13-gauge vacuum-assisted mammotome Elite biopsy gun was used to obtain 3 core samples. Following this, a Hydromark butterfly clip was left in lesion. B. 9:00 nodular area: Under ultrasound guidance, a 13-gauge vacuum-assisted mammotome Elite biopsy gun was used to obtain 3 core samples. Following this, a Hydromark coil clip was left in lesion. The patient tolerated the procedure well without any immediate complication. The patient was kept in the radiology department for short stay after the procedure and then discharged home in stable condition. Postprocedure mammogram: The patient was transferred to mammography for physician ordered post procedure mammogram for clip placement verification. Post procedure mammogram shows clips in place. IMPRESSION: Successful, uncomplicated ultrasound guided core biopsy of 2 more nodular areas within the larger palpable finding subareolar right breast. Suspect combination of scar tissue and fat necrosis. Full pathology results to follow. [facility], , 12/07/2023 4:14 PM. Pathology Results: Result: Benign, Fat necrosis. Pathology and radiology were reviewed. Findings are concordant. A. RIGHT BREAST, 4:00, NEEDLE CORE BIOPSY: Scar with fat necrosis and histiocytes. Negative for malignancy. B. RIGHT BREAST, 9:00, NEEDLE CORE BIOPSY: Scar with fat necrosis and histocytes. Negative for malignancy. Overall Assessment: Benign Assessment: MG diagnostic mammo RT wo CAD - Right: Benign, BI-RAD 2. Management: Diagnostic Breast Ultrasound of the right breast in 6 months. Electronically signed and approved by: Amparo Leigh M.D. Radiologist
== END ==
LOC: RADUSWWP 12:40
PROVIDERS: ATTEND Surgery
DX: N64.1 Fat necrosis of breast (principal); L90.5 Scar conditions and fibrosis of skin; R92.8 Other abnormal and inconclusive findings on diagnostic imaging of breast; Z78.0 Asymptomatic menopausal state; Z85.3 Personal history of malignant neoplasm of breast
CPT/HCPCS: 88305; 77065; 19083; 19084; A4648

== ENCOUNTER → 2023-12-17 | Outpatient (CLI) | payer MEDICARE ==
--- NOTE | 2023-12-17 11:29 | P.PN ---
Subjective Progress Note Date: 12/17/23 Principal diagnosis: scar tissue right breast, encapsulated papillary carcinoma right breast 12-17-23 Principal diagnosis: right breast encapsulated papillary carcinoma /DCIS 2021 Eboni is a 73 year old female. She had bilateral reduction mammoplasty with removal of the intraductal papilloma on 07-02-21. 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 No sentinel nodes were obtained. 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 The lateral margin was positive. It was ER/GA positive and HER-2 negative. She had an Oncotype score of 3. She subsequently underwent radiation therapy completing this on [id number]. She is presently on anastrozole She had postoperative chronic draining sinus of the right breast which has since healed. The patient has no new lumps masses or nodules of concern in either breast. She had a bilateral mammogram and which was BIRADS 2 She is going to have a bilateral mammogram in April 2024 She took NSAID for knee pain and developed a bleeding gastric ulcer in July 2023 This developed after she had severe nausea. Patient presently on carafate and protonix, reglan and promethazine that is controling the nausea. Emergency department in [place] saw her and transferred to [facility]. She had had bariatric surgery in the past and is believed that the ulcer is related to the bariatric surgery anastomosis. She has been seen at [facility] and she is going to see a bariatric surgeon at that department. Note medical oncology 09-09-23 reviewed on last visit; continue letrazole; genetic testing ordered will obtain report of CT from [facility] and EGD report Eboni just followed up at [facility] regarding her ulcer disease. She is also complaining of difficulty swallowing. She is not complaining of pain or nausea at this time. She tolerated the ultrasound-guided core biopsy of the right breast without difficulty. She is not complaining of any new changes in her breast. Her ultrasound guided biopsy of two sites in the right breast were both scar with fat necrosis. The areas were at 4:00 and 9:00. This was discussed in detail with her, it appears the changes in the breast are scar tissue. Caffeine: tea 3 cups/day nicotine: none chocolate: rare BCP: less than 1 year in remote past hormones: none Family history: mother: uterine cancer father: pancreatic cancer Hormonal History: menarche: 15 , breast fed: yes, age at first : 28 menopause: 55 hormones: none Surgical History: bilateral cataracts bladder sling left knee replacement gastric bypass ruptured bypass repaired left knee replacement bilateral reduction mammoplasty right knee replacement Medical History: HTN DM bleeding ulcer left knee pain Social History: nicotine: none alcohol: none drugs: none - Constitutional Constitutional: Denies chills, Denies fever - EENT Comment: retinal hole left eye Eyes: bilateral as per HPI, denies blurred vision, denies pain Ears: deny: decreased hearing, tinnitus Ears, nose, mouth and throat: Denies headache, Denies sore throat - Breasts Breasts: bilateral: as per HPI - Cardiovascular Cardiovascular: Denies chest pain, Denies shortness of breath - Respiratory Respiratory: Denies cough - Gastrointestinal Gastrointestinal: Reports as per HPI, Denies abdominal pain, Denies diarrhea, Denies nausea, Denies vomiting - Genitourinary (Female) Genitourinary: Denies dysuria, Denies hematuria - Menstruation Menstruation: Reports postmenopausal - Musculoskeletal Comment: arthritis - Integumentary Integumentary: Denies pruritus, Denies rash - Neurological Neurological: Denies numbness, Denies weakness - Psychiatric Psychiatric: Reports depression - Endocrine Endocrine: Denies fatigue, Denies weight change - Hematologic/Lymphatic Comment: none - Allergic/Immunologic Allergic/Immunologic: Reports as per HPI Objective - Constitutional General appearance: Present: cooperative - EENT Eyes: Present: EOMI ENT: Present: hearing grossly normal - Neck Neck: Present: normal ROM - Respiratory Respiratory: bilateral: CTA - Cardiovascular Rhythm: regular Heart sounds: normal: S1, S2 - Integumentary Integumentary: Present: normal turgor - Psychiatric Psychiatric: Present: A&O x's 3, appropriate affect, intact judgment & insight - Additional findings Additional findings: Patient limited to right breast Ecchymosis at biopsy sites of the right breast no hematoma or infection present Assessment and Plan Assessment: Impression: mass right breast behind nipple complex Patient due for bilateral mammogram in April 2024 Breast is completely healed at this time Diabetes HTN right knee pain bilateral mammogram 04-21-23 BIRAD 2 Plan: Right breast ultrasound in April 2024 Bilateral mammogram in April 2024 Continue to follow with medical oncology/continue anestrazole Continue follow with radiation oncology Follow-up here in 6 months obtain reports from [facility] follow with bariatic surgeon CC: Dr. Bhagat
[2023-12-17 11:49] VITALS: BP 163/83; PULSE 64; RESP 16; TEMP 97.3
== END ==
LOC: WWCWWP 10:52
PROVIDERS: ATTEND Surgery
DX: R92.8 Other abnormal and inconclusive findings on diagnostic imaging of breast (principal); D05.11 Intraductal carcinoma in situ of right breast; E11.36 Type 2 diabetes mellitus with diabetic cataract; I10 Essential (primary) hypertension; M25.561 Pain in right knee; Z92.3 Personal history of irradiation; Z88.8 Allergy status to other drugs, medicaments and biological substances; Z79.899 Other long term (current) drug therapy; Z79.4 Long term (current) use of insulin

== ENCOUNTER → 2024-02-20 | Outpatient (CLI) | payer MEDICARE ==
[2024-02-20 12:47] LABS: Basophils # (A) 0.03 X 10*3/uL (0.00-0.10); Basophils % (A) 0.6 %; Eosinophils # (A) 0.16 X 10*3/uL (0.04-0.35); Eosinophils % (A) 3.2 %; HCT 39.6 % (37.2-46.3); HGB 12.8 g/dL (12.0-15.0); Lymphocytes # (A) 0.86 X 10*3/uL (0.90-5.00); Lymphocytes % (A) 17.4 %; MCH 28.3 pg (27.0-32.0); MCHC 32.3 g/dL (32.0-37.0); MCV 87.6 FL (80.0-97.0); Mean Platelet Volume 9.9 FL (9.5-12.2); Monocytes # (A) 0.38 X 10*3/uL (0.20-1.00); Monocytes % (A) 7.7 %; NRBC Per 100 WBC 0 X 10*3/uL (0.00-0.01); Neutrophils # (A) 3.51 X 10*3/uL (1.80-7.70); Neutrophils % (A) 70.9 %; Platelet Count 282 X 10*3/uL (140-440); RBC 4.52 X 10*6/uL (4.10-5.20); RDW 13.2 % (11.5-14.5); WBC 4.95 X 10*3/uL (4.50-10.00)
[2024-02-20 13:18] LABS: % Iron Saturation 33.12 (12.00-45.00); ALT 9 U/L (8-44); AST 17 U/L (13-35); Albumin 4.1 g/dL (3.8-4.9); Albumin/Globulin Ratio 1.86 Ratio (1.60-3.17); Alkaline Phosphatase 102 U/L (41-126); BUN/Creat Ratio 16.75 Ratio (12.00-20.00); Blood Urea Nitrogen 13.4 mg/dL (9.0-27.0); Calcium 9.6 mg/dL (8.7-10.3); Carbon Dioxide 29.3 mmol/L (21.6-31.8); Chloride 109 mmol/L (96-109); Chol/HDL Ratio 3.72 Ratio; Globulin 2.2 g/dL (1.6-3.3); Glucose 144 mg/dL (70-110); Iron 103 UG/DL (50-170); LDL Cholesterol,Calculated 138.8 mg/dL (0.0-131.0); Lipase 24 U/L (14-63); Potassium 3.8 mmol/L (3.5-5.5); Sodium 147 mmol/L (135-145); T4, Free (Free Thyroxine) 1.08 ng/dL (0.80-1.80); Total Bilirubin 0.7 mg/dL (0.3-1.2); Total Iron Binding Capacity 311 UG/DL (228-460); Total Protein 6.3 g/dL (6.2-8.2)
== END | disposition home or self-care (01) ==
LOC: LABWHC1 09:45
PROVIDERS: ATTEND Family Medicine
DX: E11.65 Type 2 diabetes mellitus with hyperglycemia (principal); R11.2 Nausea with vomiting, unspecified; D50.9 Iron deficiency anemia, unspecified; R13.14 Dysphagia, pharyngoesophageal phase; D51.9 Vitamin B12 deficiency anemia, unspecified
CPT/HCPCS: 36415; 80053; 80061; 82043; 82570; 82607; 83036; 83540; 83550; 83690; 83735; 84439; 84443; 85025

== ENCOUNTER 2024-03-04 08:41 | Day surgery (SDC) | payer MEDICARE ==
[2024-03-02 13:39] VITALS: BMI 25.1
[2024-03-04 09:05] VITALS: TEMP 97.9
[2024-03-04] MEDS: FAMOTIDINE 20 MG/2 ML VIAL IV STA (09:29)
[2024-03-04] MEDS: LACTATED RINGERS 500 ML IV ONE (09:30)
[2024-03-04 09:34] LABS: Glucose,Whole Blood 124 mg/dL (70-110)
[2024-03-04] MEDS ORDERED: PROPOFOL 10 MG/ML 20 ML VIAL IV ONE (09:34)
--- NOTE | 2024-03-04 09:45 | P.PCN ---
Date of Procedure: 03/04/24 Procedure(s) Performed: BRIEF HISTORY: Patient is a 73-year-old, pleasant, white female scheduled an upper endoscopy as a part of follow-up of gastric anastomotic ulcer that was diagnosed in when she presented with acute upper GI bleed. She had an upper endoscopy at [facility] and was told has a large anastomotic ulcer. Protonix 40 mg twice daily since then. She started complaints of epigastric discomfort and heartburn.. Patient has history of gastric bypass surgery several years ago PROCEDURE PERFORMED: Esophagogastroduodenoscopy with dilation and biopsy. PREOPERATIVE DIAGNOSIS: Follow-up gastric anastomotic ulcer diagnosed in July 2023. IV sedation per anesthesia. PROCEDURE: After informed consent was obtained, the patient was brought into the endoscopy unit. IV sedation was administered by Anesthesia under continuous monitoring. Initially the Olympus GIF-140 video endoscope was inserted into the mouth. Esophagus intubated without any difficulty. It was gradually advanced into the stomach. The gastric pouch appeared normal. The anastomosis appeared very erythematous and there was a tight stricture identified. The scope would not be advanced through the stricture. At this time I proceeded with balloon dilation using 10 to 12 mm TTS balloon for 30 seconds. Following the dilation I could see anastomotic ulcer which was biopsied. Despite the dilation I was not able to advance the scope through the anastomosis. The gastric pouch appeared normal. The scope was then withdrawn into the esophagus. The GE junction was located at 39 cm from the incisors. The esophagus appeared normal. There were no erosions or ulcerations seen and the patient tolerated the procedure well. IMPRESSION: 1. 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 2. Residual anastomotic ulcer status post biopsy. RECOMMENDATIONS: The findings of this examination were discussed with the patient as well as her family. She was advised to follow with the biopsy results. Continue with Protonix 40 mg twice daily. Follow-up in the office in 1 month. Based on her symptoms we will plan on repeat upper endoscopy with dilation in 6 to 8 weeks..
[2024-03-04 10:02] VITALS: BP 143/84; PULSE 65; RESP 18
== END 2024-03-04 10:30 | disposition home or self-care (01) ==
LOC: ORWHC2ENDO 08:41
PROVIDERS: ATTEND Internal Medicine Gastroenterology
DX: K25.9 Gastric ulcer, unspecified as acute or chronic, without hemorrhage or perforation (principal); Z79.899 Other long term (current) drug therapy; Z98.84 Bariatric surgery status; Z98.890 Other specified postprocedural states; I10 Essential (primary) hypertension; E78.5 Hyperlipidemia, unspecified; G47.33 Obstructive sleep apnea (adult) (pediatric); K21.9 Gastro-esophageal reflux disease without esophagitis; Z85.3 Personal history of malignant neoplasm of breast; Z95.5 Presence of coronary angioplasty implant and graft; Z90.49 Acquired absence of other specified parts of digestive tract; Z88.6 Allergy status to analgesic agent
CPT/HCPCS: 88305; 43239; 43249; J3490; J2704; C1726

== ENCOUNTER 2024-04-29 09:52 | Day surgery (SDC) | payer MEDICARE ==
[2024-04-28 10:13] VITALS: BMI 26.1
[2024-04-29 10:22] LABS: Glucose,Whole Blood 179 mg/dL (70-110)
[2024-04-29] MEDS ORDERED: LIDOCAINE 1% INJ 10MG/ML (20 ML MDV) ONE (10:25)
[2024-04-29] MEDS: LACTATED RINGERS 1,000 ML IV ONE ×3 (10:25→10:37)
[2024-04-29] MEDS ORDERED: PROPOFOL 10 MG/ML 20 ML VIAL IV ONE (10:25)
[2024-04-29 10:26] VITALS: TEMP 98.6
--- NOTE | 2024-04-29 10:37 | P.PCN ---
Date of Procedure: 04/29/24 Procedure(s) Performed: BRIEF HISTORY: Patient is a 23-year-old, pleasant, white female scheduled endoscopy as a part of evaluation of epigastric pain, epigastric fullness and dysphagia. She has history of multiple gastric anastomotic ulcers diagnosed in February 2023. Since then she has been maintained on Protonix 40 mg twice daily. Repeat upper endoscopy in February 2024 revealed a tight anastomotic stricture for which she underwent she underwent EGD with dilation and symptoms slightly improved. She is here for repeat upper endoscopy with dilation today. PROCEDURE PERFORMED: Esophagogastroduodenoscopy with dilation. PREOPERATIVE DIAGNOSIS: Symptomatic gastric anastomotic stricture. IV sedation per anesthesia. PROCEDURE: After informed consent was obtained, the patient was brought into the endoscopy unit. IV sedation was administered by Anesthesia under continuous monitoring. Initially the Olympus GIF-140 video endoscope was inserted into the mouth. Esophagus intubated without any difficulty. It was gradually advanced into the stomach appeared normal. There was a tight anastomotic stricture identified at the Susana-en-Y anastomosis. The scope could not be advanced through the stricture. At this time balloon dilation was performed using 12 and 13.5 mm TTS balloon for 60 seconds. Following the dilation I was able to advance the scope into the jejunum at 60 cm visualized and appeared normal. The scope was then withdrawn into the esophagus. The GE junction was located at 39 cm from the incisors. The esophagus appeared normal. There were no erosions or ulcerations seen and the patient tolerated the procedure well. IMPRESSION: 1. 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 2. Gastric pouch appeared normal. RECOMMENDATIONS: The findings of this examination were discussed with the patient as well as her family. She was advised to be on clear liquids for 2 hours. Continue with Protonix 40 mg twice daily. Avoid NSAIDs. Follow-up in the office in 3 months.
[2024-04-29 10:40] VITALS: RESP 16
[2024-04-29 11:02] VITALS: BP 185/90; PULSE 49
== END 2024-04-29 11:26 | disposition home or self-care (01) ==
LOC: ORWHC2ENDO 09:52
PROVIDERS: ATTEND Internal Medicine Gastroenterology
DX: K31.89 Other diseases of stomach and duodenum (principal); I10 Essential (primary) hypertension; G47.33 Obstructive sleep apnea (adult) (pediatric); E11.9 Type 2 diabetes mellitus without complications; Z85.3 Personal history of malignant neoplasm of breast; Z90.6 Acquired absence of other parts of urinary tract; Z79.4 Long term (current) use of insulin; Z79.899 Other long term (current) drug therapy
CPT/HCPCS: 43249; J2003; J2704; C1726

== ENCOUNTER → 2024-05-03 | Outpatient (CLI) | payer MEDICARE ==
--- NOTE | 2024-05-03 13:59 | MM ---
Reason for Exam: Hx of breast cancer, conservation therapy. Last screening mammogram was performed 12 month(s) ago. Patient History: Menarche at age 15. First Full-Term at age 28. Postmenopausal. Patient has history of breast feeding. Breast cancer, right, age 70. Previous chest radiation therapy at age 70. 12/07/2023, US biopsy breast add'l VAD RT on the Right side. 12/07/2023, Benign US biopsy breast VAD RT on the right side. 2022, Bilateral Reduction. 07/02/2021, Malignant MG pre op needle loc RT on the right side. Core Biopsy on the Right side. Core Biopsy on the Right side. 03/05/2021, High risk Core Biopsy on the right side. Prior Study Comparison: 03/05/2021 Right Diagnostic Mammogram, [facility]. 08/20/2021 Right US breast BILAT, [facility]. 02/27/2022 Bilateral MR breast bilat wo/w con, [facility]. 04/18/2022 Bilateral MG 3D diag mammo w/cad JOANA, [facility]. 04/21/2023 Bilateral MG 3D diag mammo w/cad JOANA, [facility]. 11/23/2023 Right US breast limited RT, [facility]. 12/07/2023 Right MG diagnostic mammo RT wo CAD, [facility]. Tissue Density: The breasts are heterogeneously dense, which may obscure small masses. Findings: Analyzed By CAD. Stable distortion and posttreatment changes to the right breast. Scattered benign-appearing round calcifications bilaterally are redemonstrated. There are 2 biopsy clips in the right breast again seen. No suspicious new mass or worrisome group of microcalcification in either breast. Overall Assessment: Benign, BI-RAD 2 Management: Diagnostic Mammogram of both breasts in 1 year. Return to routine follow-up. Results were given to the patient verbally at the time of exam. Patient should continue monthly self-breast exams. A clinical breast exam by your physician is recommended on an annual basis. This exam should not preclude additional follow-up of suspicious palpable abnormalities. Note on Antonia scores and lifetime risk: 1. A Antonia score greater than 3% is considered moderate risk. If this is the case, consider specialist referral to assess eligibility for a risk reducing agent. 2. If overall lifetime risk for the development of breast cancer is 20% or higher, the patient may qualify for future screening with alternating mammogram and breast MRI. [facility], , 05/03/2024 1:57 PM. Electronically signed and approved by: Josep Carvajal M.D.
--- NOTE | 2024-05-03 14:38 | USB ---
Reason for Exam: Follow-up at short interval from prior study. Patient History: Menarche at age 15. First Full-Term at age 28. Postmenopausal. Patient has history of breast feeding. Breast cancer, right, age 70. Previous chest radiation therapy at age 70. 12/07/2023, US biopsy breast add'l VAD RT on the Right side. 12/07/2023, Benign US biopsy breast VAD RT on the right side. 2022, Bilateral Reduction. 07/02/2021, Malignant MG pre op needle loc RT on the right side. Core Biopsy on the Right side. Core Biopsy on the Right side. 03/05/2021, High risk Core Biopsy on the right side. Technique: Method: Whole Breast Handheld. Prior Study Comparison: 04/18/2022 Bilateral MG 3D diag mammo w/cad JOANA, [facility]. 04/21/2023 Bilateral MG 3D diag mammo w/cad JOANA, [facility]. 12/07/2023 Right MG diagnostic mammo RT wo CAD, [facility]. Findings: The whole breast of the right breast, the axilla of the right breast and the retroareolar of the right breast were scanned. Electronically signed and approved by: Josep Carvajal M.D.
== END | disposition home or self-care (01) ==
LOC: RADMAMWWP 13:32
PROVIDERS: ATTEND Surgery
DX: R92.333 Mammographic heterogeneous density, bilateral breasts (principal); R92.1 Mammographic calcification found on diagnostic imaging of breast; Z85.3 Personal history of malignant neoplasm of breast; Z78.0 Asymptomatic menopausal state
CPT/HCPCS: 77062; 77066

== ENCOUNTER 2024-06-08 06:48 | Day surgery (SDC) | payer MEDICARE ==
[2024-06-03 09:25] VITALS: BMI 25.8
[~2024-06-08 06:48] MED LIST changes: -LACTATED RINGERS 1,000 ML IV SCH; +LIDOCAINE 1% (10MG/ML) FOR IV START INTRADERMA PRN
[2024-06-08] MEDS: IV FLUID CONTINUATION 1,000 ML IV ONE (07:09)
[2024-06-08] MEDS: LACTATED RINGERS 1,000 ML IV SCH (07:15)
[2024-06-08 07:23] LABS: Glucose,Whole Blood 146 mg/dL (70-110)
[2024-06-08] MEDS ORDERED: PROPOFOL 10 MG/ML 20 ML VIAL IV ONE (07:30)
[2024-06-08] MEDS ORDERED: LIDOCAINE 1% INJ 10MG/ML (20 ML MDV) ONE (07:30)
[2024-06-08] MEDS ORDERED: GLYCOPYRROLATE 0.2 MG/ML 2 ML VIAL ONE (07:30)
[2024-06-08 07:35] VITALS: TEMP 97.2
--- NOTE | 2024-06-08 07:37 | P.GSHP ---
History of Present Illness H&P Date: 06/08/24 CHIEF COMPLAINT: Esophageal stricture HISTORY OF PRESENT ILLNESS: The patient is a 73-year-old female who presents reports dysphagia. Upper endoscopy was offered for further evaluation and management. PAST MEDICAL HISTORY: Please see list. PAST SURGICAL HISTORY: Please see list. MEDICATIONS: Please see list. ALLERGIES: Please see list. SOCIAL HISTORY: No illicit drug use FAMILY HISTORY: No reports of Crohn disease or ulcerative colitis. REVIEW OF ORGAN SYSTEMS: CONSTITUTIONAL: No reports of fevers or chills. GI: Denies any blood in stools or constipation. PHYSICAL EXAM: VITAL SIGNS: Stable GENERAL: Well-developed and pleasant in no acute distress. HEENT: No scleral icterus. Extraocular movements grossly intact. Moist buccal mucosa. NECK: Supple without lymphadenopathy. CHEST: Unlabored respirations. Equal bilateral excursions. CARDIOVASCULAR: Regular rate and rhythm. Distal 2+ pulses. ABDOMEN: Soft, nondistended. MUSCULOSKELETAL: No clubbing, cyanosis, or edema. ASSESSMENT: 1. Esophageal stricture PLAN: 1. Recommend proceeding with an upper endoscopy with rigid dilators. Past Medical History Past Medical History: Cancer, Diabetes Mellitus, Hypertension, Osteoarthritis (OA) Additional Past Medical History / Comment(s): Sleep Apnea resolved with wt loss. Hx right breast cancer with radiation (2021). Gastric ulcers - recurrent. Hx of Susana-en-Y - states ruptured at anastamosis 1 year later and had bowel resection. Hiatal hernia. Chronic nausea and vomiting since May 2023. Hx Upper GI bleed requiring 2 ICU admissions and PRBC's. History of Any Multi-Drug Resistant Organisms: None Reported Past Surgical History: Bariatric Surgery, Bowel Resection, Breast Surgery, Section, Cholecystectomy, Joint Replacement, Orthopedic Surgery Additional Past Surgical History / Comment(s): Bilateral knee replacement, EGD's, bilateral cataract surgery, right breast biopsy X3, SUSANA-EN-Y, bowel resection 04/12/15, feeding tube replaced 04/13/15, G TUBE REMOVED, bladder sling, breast reduction/lumpectomy right breast June 2021. Past Anesthesia/Blood Transfusion Reactions: No Reported Reaction Additional Past Anesthesia/Blood Transfusion Reaction / Comment(s): no blood transfusion reaction Smoking Status: Never smoker - Past Family History Mother Family Medical History: Cancer Additional Family Medical History / Comment(s): Uterine cancer. Father Family Medical History: Cancer Additional Family Medical History / Comment(s): PANCREATIC CANCER. Medications and Allergies Home Medications Medication Instructions Recorded Confirmed Type Metoprolol Succinate [Toprol XL] 50 mg PO QAM 11/02/13 06/08/24 History Pantoprazole [Protonix] 40 mg PO BID 05/21/23 06/08/24 History Phenylephrine HCl/Prometh HCl 10 ml PO BID PRN 11/24/23 06/08/24 History [Promethazine VC Syrup] Sucralfate [Carafate] 1 gm PO BID 11/24/23 06/08/24 History Furosemide [Lasix] 40 mg PO DAILY PRN 06/08/24 06/08/24 History QUEtiapine [SEROquel] 1 tab PO DAILY PRN 06/08/24 06/08/24 History Valsartan [Diovan] 1 tab PO DAILY 06/08/24 06/08/24 History Allergies Allergy/AdvReac Type Severity Reaction Status Date / Time NSAIDS (Non-Steroidal AdvReac Unknown Verified 06/03/24 09:18 Anti-Inflamma Surgical - Exam Vital Signs Temp Pulse Resp BP Pulse Ox 97.2 F L 60 16 172/78 100 06/08/24 07:25 06/08/24 07:25 06/08/24 07:25 06/08/24 07:25 06/08/24 07:25 Results - Labs Abnormal Lab Results - Last 24 Hours (Table) 06/08/24 Range/Units 07:19 POC Glucose (mg/dL) 146 H (70-110) mg/dL
[2024-06-08 08:25] VITALS: BP 112/70; PULSE 73; RESP 16
--- NOTE | 2024-06-08 08:37 | P.PCN ---
Date of Procedure: 06/08/24 Description of Procedure: PREOPERATIVE DIAGNOSIS: Dysphagia. Gastric ulcers Gastroesophageal reflux disease POSTOPERATIVE DIAGNOSIS: Dysphagia. 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 INDICATIONS: The patient is a 73-year-old female who presents with a history of dysphagia, including nausea and vomiting. Benefits and risks of the procedure were described. Informed consent was obtained. DESCRIPTION: The patient was brought into the endoscopy suite and laid in the left lateral decubitus position. After a timeout was confirmed, the procedure was initiated. An Olympus gastroscope was passed along the posterior oropharynx down to the distal esophagus where the squamocolumnar junction was unremarkable. Moderate tertiary contractions consistent with presbyesophagus was found. The gastric pouch was entered. A gastrojejunal stricture of 15 mm was found as the adult gastroscope was 9.5 mm in size. Attention was brought to the upper esophageal stenosis. A rigid dilator, 54 Chadian was placed over a guidewire to 45 cm from the incisors and left for 2 minutes after exchanging the scope. A Zuffle balloon dilator was placed through the scope. The scope was reentered for balloon dilation of the gastrojejunal anastomosis. Final insufflation from 15 to 16.5 mm was performed with a total of 2 minutes. The scope was advanced up to 60 cm from the incisors into the Susana limb. The mucosa of the gastrojejunal anastomosis was intact. Chronic gastrojejunal marginal ulcer was encountered. Cold forcep biopsies of the jejunum, gastric pouch and esophagus was obtained. No full-thickness injury was encountered. The GI tract was desufflated. The patient tolerated the procedure well. FINDINGS: Squamocolumnar junction unremarkable at 37 cm. Gastric pouch 3 cm. Stricture of approximately 12 mm encountered. Moderate to severe tertiary contractions for presbyesophagus with dilation per formed Rigid dilation of upper esophageal sphincter, 54-Chadian Chronic gastrojejunal ulceration encountered with biopsies obtained of the gastric pouch. Successful balloon dilatation to 16.5 mm. LA grade A erosive esophagitis. RECOMMENDATIONS: Seroquel side effects include abdominal pain including ulcers, recommend discontinuation. Omeprazole and Carafate continue in the interim. May benefit from conversion of esophageal gastrojejunostomy to esophagojejunostomy Plan - Discharge Summary Discharge Rx Participant: No New Discharge Prescriptions: Continue Metoprolol Succinate [Toprol XL] 50 mg PO QAM Valsartan [Diovan] 1 tab PO DAILY Furosemide [Lasix] 40 mg PO DAILY PRN PRN Reason: OTHER Pantoprazole [Protonix] 40 mg PO BID Sucralfate [Carafate] 1 gm PO BID Phenylephrine HCl/Prometh HCl [Promethazine VC Syrup] 10 ml PO BID PRN PRN Reason: Cough Discontinued QUEtiapine [SEROquel] 1 tab PO DAILY PRN PRN Reason: Insomnia Discharge Medication List Metoprolol Succinate [Toprol XL] 50 mg PO QAM 11/02/13 [History] Pantoprazole [Protonix] 40 mg PO BID 05/21/23 [History] Phenylephrine HCl/Prometh HCl [Promethazine VC Syrup] 10 ml PO BID PRN 11/24/23 [History] Sucralfate [Carafate] 1 gm PO BID 11/24/23 [History] Furosemide [Lasix] 40 mg PO DAILY PRN 06/08/24 [History] Valsartan [Diovan] 1 tab PO DAILY 06/08/24 [History] [facility] [place] [facility]24 3:00 pm Patient Instructions/Handouts: *Surgery [facility] - (Anesthesia) Discharge Instructions Outpatient Surgery, Upper Endoscopy (DC), Peptic Ulcer (DC), Esophageal Dilation (DC) Activity/Diet/Wound Care/Special Instructions: Avoid Seroquel, high risk of ulcers and abdominal pain Discharge Disposition: HOME SELF-CARE
== END 2024-06-08 09:16 | disposition home or self-care (01) ==
LOC: ORWHC2ENDO 06:48
PROVIDERS: ATTEND Surgery Plastic and Reconstructive Surgery
DX: K29.50 Unspecified chronic gastritis without bleeding (principal); K22.2 Esophageal obstruction; E11.9 Type 2 diabetes mellitus without complications; G47.30 Sleep apnea, unspecified; I10 Essential (primary) hypertension; K21.9 Gastro-esophageal reflux disease without esophagitis; K22.89 Other specified disease of esophagus; K25.9 Gastric ulcer, unspecified as acute or chronic, without hemorrhage or perforation; K52.9 Noninfective gastroenteritis and colitis, unspecified; K56.699 Other intestinal obstruction unspecified as to partial versus complete obstruction; M19.90 Unspecified osteoarthritis, unspecified site; Z79.899 Other long term (current) drug therapy; Z85.3 Personal history of malignant neoplasm of breast; Z88.6 Allergy status to analgesic agent; Z90.49 Acquired absence of other specified parts of digestive tract; Z98.84 Bariatric surgery status; Z96.653 Presence of artificial knee joint, bilateral
CPT/HCPCS: 88305; 43239; 43245; 43248; 43249; J2003; J2704; J1596; C1726

== ENCOUNTER → 2024-06-22 | Outpatient (CLI) | payer MEDICARE ==
[2024-06-22 15:18] VITALS: BP 174/96; PULSE 77; RESP 16; TEMP 97.6; BMI 27.1
--- NOTE | 2024-06-22 16:28 | P.BASOAP ---
Subjective Progress Note Date: 06/22/24 She has history of bleeding and life threatening. No more bleeding. She has been on carafate on protonix 6 months. Increase protein 100 grams. She is usually getting protein. Food journal requested. She drinks 20 oz of fluids. 4 - 6 weeks. EKG abnormal. See chargeback analyst. Labs reviewed. Zinc advised. She has dumping. Objective - Vital Signs Vital signs: Vital Signs Temp 97.6 F 06/22/24 15:15 Pulse 77 06/22/24 15:15 Resp 16 06/22/24 15:15 BP 174/96 06/22/24 15:15 Pulse Ox FiO2 Intake & Output 06/21/24 06/22/24 06/22/24 18:59 06:59 18:59 Weight 82.1 kg Assessment/Plan Plan: Date: 06/22/24 Initial Weight: 145.467 kg Initial BMI: 48.0 Current Weight: 82.1 kg Current BMI: 27.1 Type of Surgery: Vertical Sleeve Gastrectomy Total Volume in Band: Previous Volume: Volume Removed: Volume Added: Band Size:
== END ==
LOC: BARWHC3 14:58
PROVIDERS: ATTEND Surgery Plastic and Reconstructive Surgery
DX: E66.01 Morbid (severe) obesity due to excess calories (principal); Z68.27 Body mass index [BMI] 27.0-27.9, adult
CPT/HCPCS: 99211

== ENCOUNTER → 2024-08-03 | Outpatient (CLI) | payer MEDICARE ==
[2024-08-03 15:01] VITALS: BP 154/69; PULSE 69; RESP 16; TEMP 97.8; BMI 28.1
--- NOTE | 2024-08-03 15:45 | P.BASOAP ---
Subjective Progress Note Date: 08/03/24 She is gaining weight. She feels better. She looks better. No more hang up in the chest or stomach. She is eating better. She is having mental changes and cannot function. No more difficulty swallowing. Zinc supplement and doing well. Objective - Vital Signs Vital signs: Vital Signs Temp 97.8 F 08/03/24 14:50 Pulse 69 08/03/24 14:50 Resp 16 08/03/24 14:50 BP 154/69 08/03/24 14:50 Pulse Ox FiO2 Intake & Output 08/02/24 08/03/24 08/03/24 18:59 06:59 18:59 Weight 85.275 kg Assessment/Plan Plan: Date: 08/03/24 Initial Weight: 145.467 kg Initial BMI: 48.0 Current Weight: 85.275 kg Current BMI: 28.1 Type of Surgery: Total Volume in Band: Previous Volume: Volume Removed: Volume Added: Band Size:
== END ==
LOC: BARWHC3 14:03
PROVIDERS: ATTEND Surgery Plastic and Reconstructive Surgery
DX: E66.01 Morbid (severe) obesity due to excess calories (principal); Z88.6 Allergy status to analgesic agent; Z88.8 Allergy status to other drugs, medicaments and biological substances; Z68.28 Body mass index [BMI] 28.0-28.9, adult
CPT/HCPCS: 99211